=== PATIENT | male | born 1950 | race African-American/Black ===

== ENCOUNTER 2017-03-29 14:32 | Emergency (ER) | payer MEDICARE ==
[~2017-03-29] VITALS: Ht 188 cm; Wt 91.0 kg
[2017-03-29 14:47] VITALS: BP 89/53; PULSE 75; RESP 25; TEMP 97.9; O2SAT 99
[2017-03-29 15:06] VITALS: BP 141/75; PULSE 77; RESP 25; O2SAT 99
--- NOTE | 2017-03-29 15:12 | PD ---
HPI Chief Complaint: Syncope/Near-Syncope Time Seen by Provider: 14:38 Travel History International Travel<30 days: No Contact w/Intl Traveler<30days: No Traveled to known affect area: No History of Present Illness HPI 66-year-old male came to the emergency room brought by EMS after he had a syncopal episode in a store. His son was there with him. Patient has history of diabetes and the bystanders brought some juice for him. EMS noticed his blood glucose to be 101 upon arrival. His blood glucose was 75 after arrival in the ER. I went to speak with him patient said that he wants to go home and does not want anything else to be done. It was difficult to get any further history from the patient. His blood pressure upon arrival was 82 systolic PFSH Past Medical History Narrative Medical List of his past medical, surgical, social and family history was reviewed from the nursing note. Arthritis: Yes High Cholesterol: Yes Diabetes: Yes Patient Takes Glucophage: No Hypertension: Yes Musculoskeletal: Yes Past Surgical History Surgical History: No Previous Surgery Social History Alcohol Use: Yes (2-3 beer/liquor drinks 2-3 times per week. ) Tobacco Use: No Substance Use: No Allergies-Medications (Allergen,Severity, Reaction): Coded Allergies: No Known Allergies (Unverified , 03/29/17) Comments No known drug allergies. Reported Meds & Prescriptions Reported Meds & Active Scripts Active Active Prescriptions or Reported Medications Unobtainable Narrative Medication List of his home medications reviewed from the nursing note. Review of Systems Except as stated in HPI: all other systems reviewed are Neg Neurologic: Positive: Syncope Physical Exam Narrative GENERAL: Awake, alert, mild distress SKIN: Focused skin assessment warm/dry. HEAD: Atraumatic. Normocephalic. EYES: Pupils equal and round. No scleral icterus. No injection or drainage. ENT: No nasal bleeding or discharge. Mucous membranes pink and moist. NECK: Trachea midline. No JVD. CARDIOVASCULAR: Regular rate and rhythm. No murmur appreciated. RESPIRATORY: No accessory muscle use. Clear to auscultation. Breath sounds equal bilaterally. GASTROINTESTINAL: Abdomen soft, non-tender, nondistended. Hepatic and splenic margins not palpable. MUSCULOSKELETAL: No obvious deformities. No clubbing. No cyanosis. No edema. NEUROLOGICAL: Awake and alert. No obvious cranial nerve deficits. Motor grossly within normal limits. Normal speech. PSYCHIATRIC: Appropriate mood and affect; insight and judgment normal. Data Data Last Documented VS Orders Orders Electrocardiogram (03/29/17 14:46) MDM Medical Decision Making Medical Screen Exam Complete: Yes Emergency Medical Condition: Yes Medical Record Reviewed: Yes Interpretation(s) Twelve-lead EKG was reviewed by me. Normal sinus rhythm, normal axis, nonspecific ST-T wave changes. Heart rate of 70 bpm Differential Diagnosis Cardiac arrhythmia, hypoglycemia Narrative Course 4 PM patient wanted to go home. He understood the risks of leaving without telling any of the tests and not being able to determine the underlying cause of his syncope. I explained to him that the risk in worse case scenario could be . Patient understood but still wanted to go. He was in full capacity to make the decision. He signed AMA. Procedures EKG Prior to Arrival: No Diagnosis Primary Impression: Syncope Qualified Codes: R55 - Syncope and collapse Scripts Unable to Obtain Active Prescriptions or Reported Meds Disposition: 07 AGAINST MEDICAL ADVICE Condition: Serious Janelle Hobbs MD Mar 29, 2017 15:12
--- NOTE | 2017-03-30 15:43 | EKG ---
Date Performed: 03/29/2017 Time Performed: 14:46:55 PTAGE: 66 years EKG: Sinus rhythm NORMAL ECG NO PREVIOUS TRACING DOCTOR: Meek Garner Interpretating Date/Time 03/30/2017 15:42:12
== END 2017-03-29 18:50 | disposition left against medical advice (07) ==
LOC: NEPE 14:32
DX: R55 Syncope and collapse (principal); M19.90 Unspecified osteoarthritis, unspecified site; E78.00 Pure hypercholesterolemia, unspecified; E11.9 Type 2 diabetes mellitus without complications; I10 Essential (primary) hypertension
CPT/HCPCS: 93005; 99283

== ENCOUNTER 2017-09-02 22:14 | Inpatient (IN) | payer OTHER, MEDICARE ==
[~2017-09-02] VITALS: Ht 190.5 cm; Wt 84.5 kg
[2017-09-02 22:30] VITALS: BP 139/92; PULSE 124; RESP 16; TEMP 99; O2SAT 97
[2017-09-02] MEDS ORDERED: SODIUM CHLOR 0.9% 1000 ML INJ 1,000 ML IV ONE (22:33)
[2017-09-02 22:39] VITALS: PULSE 127; RESP 20; TEMP 99; O2SAT 97
[2017-09-02] MEDS ORDERED: SODIUM CHLORIDE 0.9% FLUSH 10 ML FLUSH IVF PRN (22:45)
--- NOTE | 2017-09-02 22:50 | PD ---
HPI Chief Complaint: Cardiac Complaint Time Seen by Provider: 22:48 Travel History International Travel<30 days: No Contact w/Intl Traveler<30days: No Traveled to known affect area: No History of Present Illness HPI 67-year-old male presents to the emergency department by EMS transport for evaluation of generalized weakness and palpitations. Patient states he has not felt well for several months with poor oral intake and significant weight loss. Today was experiencing generalized weakness and palpitations. According to paramedics upon their arrival patient's heart rate was 140, blood sugar was mildly elevated patient was given liter of normal saline complaint of palpitations decreased patient did not complain of any chest pain or shortness of breath. Patient recently moved to the area and has not established with a primary care provider. Patient admits to being noncompliant with his medications. Admits to drinking alcohol. PFSH Past Medical History Narrative Medical Arthritis dyslipidemia diabetes CAD [place] hypertension; alcohol use; nursing notes reviewed Arthritis: Yes Cardiovascular Problems: Yes High Cholesterol: Yes Diabetes: Yes Patient Takes Glucophage: No Hypertension: Yes Musculoskeletal: Yes Myocardial Infarction: Yes Social History Alcohol Use: Yes Tobacco Use: No Substance Use: Yes (ETOH ABUSE 1 GALLON VODKA EVERY FEW DAYS) Allergies-Medications (Allergen,Severity, Reaction): Coded Allergies: No Known Allergies (Unverified , 09/02/17) Reported Meds & Prescriptions Reported Meds & Active Scripts Active Reported Digox (Digoxin) 0.25 Mg Tab 0.25 Mg PO DAILY Zolpidem (Zolpidem Tartrate) 10 Mg Tab 10 Mg PO HS PRN Levitra (Vardenafil) 20 Mg Tab 20 Mg PO DAILY PRN Viagra (Sildenafil Citrate) 100 Mg Tab 100 Mg PO DAILY PRN Potassium Chloride ER (Potassium Chloride) 20 Meq Tab 20 Meq PO DAILY Polymyxin B-Trimethoprim Opth Drops 10,000-0.1 Unit/Ml-% Soln 1 Drop LEFT EYE Q6HR Pred Forte Opth 1% (Prednisolone Acetate Opth 1%) 1% Susp 1 Drop LEFT EYE QID Multi-Vitamin Daily (Multiple Vitamin) 1 Tab Tab 1 Tab PO DAILY Methimazole 10 Mg Tab 10 Mg PO DAILY Metformin ER (Metformin HCl) 1,000 Mg [place] 1,000 Mg PO BID With evening meal Meloxicam 15 Mg Tab 15 Mg PO DAILY Magnesium Oxide 400 Mg Tab 800 Mg PO DAILY Lisinopril 40 Mg Tab 40 Mg PO DAILY Ketorolac Opth Drops 0.5% Drops 1 Drop LEFT EYE TID Furosemide 40 Mg Tab 40 Mg PO DAILY Escitalopram (Escitalopram Oxalate) 10 Mg Tab 10 Mg PO DAILY B-12 (Cyanocobalamin) 1,000 Mcg Subl 1,000 Mcg PO DAILY Carvedilol 25 Mg Tab 25 Mg BID Atorvastatin (Atorvastatin Calcium) 40 Mg Tab 40 Mg PO HS Ascorbic Acid 500 Mg Tab 1,000 Mg PO Amlodipine (Amlodipine Besylate) 5 Mg Tab 5 Mg PO DAILY Tylenol (Acetaminophen) 325 Mg Tab 325 Mg PO ONCE Review of Systems Except as stated in HPI: all other systems reviewed are Neg General / Constitutional: Positive: Fever, Chills HENT: No: Congestion Cardiovascular: Positive: Chest Pain or Discomfort, Palpitations, Tachycardia, No: Edema Respiratory: Positive: Cough, No: Shortness of Breath Gastrointestinal: Positive: Nausea, Vomiting, Abdominal Pain Genitourinary: No: Dysuria Musculoskeletal: No: Myalgias, Arthralgias Neurologic: Positive: Weakness Psychiatric: No: Anxiety Hematologic/Lymphatic: No: Lymph Node Enlargement Physical Exam Narrative GENERAL: Well-developed well-nourished male no acute distress no respiratory distress GCS 15 SKIN: Warm and dry. HEAD: Normocephalic. EYES: No scleral icterus. No injection or drainage. NECK: Supple, trachea midline. No JVD or lymphadenopathy. CARDIOVASCULAR: Increased regular rate and rhythm without murmurs, gallops, or rubs. RESPIRATORY: Breath sounds equal bilaterally. No accessory muscle use. GASTROINTESTINAL: Abdomen soft, diffusely tender without guarding or rebound, nondistended. MUSCULOSKELETAL: No cyanosis, or edema. BACK: Nontender without obvious deformity. No CVA tenderness. Data Data Last Documented VS Vital Signs Date Time Temp Pulse Resp B/P (MAP) Pulse Ox O2 Delivery O2 Flow Rate FiO2 09/02/17 22:39 119 98 Room Air 09/02/17 22:39 99.0 20 09/02/17 22:30 139/92 (108) Orders Orders Electrocardiogram (09/02/17 22:33) Complete Blood Count With Diff (09/02/17 22:33) Comprehensive Metabolic Panel (09/02/17 22:33) Magnesium (Mg) (09/02/17 22:33) Ckmb (Isoenzyme) Profile (09/02/17 22:33) Troponin I (09/02/17 22:33) Act Partial Throm Time (Ptt) (09/02/17 22:33) Prothrombin Time / Inr (Pt) (09/02/17 22:33) Urinalysis - C+S If Indicated (09/02/17 22:33) Chest, Single Ap (09/02/17 22:33) Ct Brain W/O Iv Contrast(Rout) (09/02/17 22:33) Blood Glucose (09/02/17 22:33) Ecg Monitoring (09/02/17 22:33) Iv Access Insert/Monitor (09/02/17 22:33) Oximetry (09/02/17 22:33) Sodium Chloride 0.9% Flush (Ns Flush) (09/02/17 22:45) Sodium Chlor 0.9% 1000 Ml Inj (Ns 1000 M (09/02/17 22:33) Ct Abd/Pel W Iv Contrast(Rout) (09/02/17 ) Lipase (09/02/17 22:33) Blood Culture (09/02/17 22:33) Lactic Acid (09/02/17 22:33) Iohexol 350 Inj (Omnipaque 350 Inj) (09/03/17 00:12) Thiamine Inj (Thiamine Inj) (09/03/17 01:00) Magnesium Sulfate 1 Gm Premix (Magnesium (09/03/17 01:00) Alcohol (Ethanol) (09/03/17 00:49) Drug Screen, Random Urine (09/03/17 00:49) Sodium Chlor 0.9% 1000 Ml Inj (Ns 1000 M (09/03/17 01:00) Alcohol Withdrawal Asmt-Ciwa ONCE (09/03/17 00:55) Flumazenil Inj (Romazicon Inj) (09/03/17 01:00) Lorazepam (Ativan) (09/03/17 01:00) Lorazepam Inj (Ativan Inj) (09/03/17 01:00) Lorazepam (Ativan) (09/03/17 01:00) Lorazepam Inj (Ativan Inj) (09/03/17 01:00) Lorazepam Inj (Ativan Inj) (09/03/17 01:00) Lorazepam Inj (Ativan Inj) (09/03/17 01:00) Lactic Acid (09/03/17 00:59) Admit Order (Ed Use Only) (09/03/17 ) Flight Operations Inspector / Telemetry [id number] (09/03/17 01:00) Activity Bed Rest (09/03/17 01:00) Notify Dr: Other (09/03/17 01:00) Labs Laboratory Tests Test 09/02/17 22:45 09/02/17 23:15 White Blood Count 5.8 TH/MM3 Red Blood Count 3.30 MIL/MM3 Hemoglobin 11.7 GM/DL Hematocrit 34.4 % Mean Corpuscular Volume 104.1 FL Mean Corpuscular Hemoglobin 35.6 PG Mean Corpuscular Hemoglobin Concent 34.2 % Red Cell Distribution Width 16.0 % Platelet Count 152 TH/MM3 Mean Platelet Volume 9.5 FL Neutrophils (%) (Auto) 66.3 % Lymphocytes (%) (Auto) 18.0 % Monocytes (%) (Auto) 15.1 % Eosinophils (%) (Auto) 0.1 % Basophils (%) (Auto) 0.5 % Neutrophils # (Auto) 3.8 TH/MM3 Lymphocytes # (Auto) 1.0 TH/MM3 Monocytes # (Auto) 0.9 TH/MM3 Eosinophils # (Auto) 0.0 TH/MM3 Basophils # (Auto) 0.0 TH/MM3 CBC Comment DIFF FINAL Differential Comment Prothrombin Time 12.0 SEC Prothromb Time International Ratio 1.2 RATIO Activated Partial Thromboplast Time 24.4 SEC Blood Urea Nitrogen 13 MG/DL Creatinine 1.18 MG/DL Random Glucose 283 MG/DL Total Protein 8.0 GM/DL Albumin 3.2 GM/DL Calcium Level 8.3 MG/DL Magnesium Level 1.3 MG/DL Alkaline Phosphatase 285 U/L Aspartate Amino Transf (AST/SGOT) 307 U/L Alanine Aminotransferase (ALT/SGPT) 112 U/L Total Bilirubin 3.9 MG/DL Sodium Level 137 MEQ/L Potassium Level 3.7 MEQ/L Chloride Level 96 MEQ/L Carbon Dioxide Level 27.3 MEQ/L Anion Gap 14 MEQ/L Estimat Glomerular Filtration Rate 75 ML/MIN Lactic Acid Level 3.8 mmol/L Total Creatine Kinase 49 U/L Troponin I LESS THAN 0.02 NG/ML Lipase 39 U/L Ethyl Alcohol Level LESS THAN 3 MG/DL Urine Color YELLOW Urine Turbidity HAZY Urine pH 6.0 Urine Specific [place] 1.024 Urine Protein 30 mg/dL Urine Glucose (UA) 150 mg/dL Urine Ketones 10 mg/dL Urine Occult Blood NEG Urine Nitrite NEG Urine Bilirubin MOD Urine Urobilinogen GREATER THAN 12.0 MG/DL Urine Leukocyte Esterase TRACE Urine RBC 7 /hpf Urine WBC 8 /hpf Urine Squamous Epithelial Cells 1 /hpf Urine Uric Acid Crystals OCC /hpf Urine Bacteria RARE /hpf Urine Hyaline Casts 81 /lpf Urine Granular Casts 5 /lpf Urine Mucus MANY /lpf Microscopic Urinalysis Comment CULT NOT INDICATED Urine Opiates Screen NEG Urine Barbiturates Screen NEG Urine Amphetamines Screen NEG Urine Benzodiazepines Screen NEG Urine Cocaine Screen NEG Urine Cannabinoids Screen NEG MDM Medical Decision Making Medical Screen Exam Complete: Yes Emergency Medical Condition: Yes Medical Record Reviewed: Yes Interpretation(s) CBC & BMP Diagram 09/02/17 22:45 Total Protein 8.0, Albumin 3.2 L, Calcium Level 8.3 L, Magnesium Level 1.3 L, Alkaline Phosphatase 285 H, Aspartate Amino Transf (AST/SGOT) 307 H, Alanine Aminotransferase (ALT/SGPT) 112 H, Total Bilirubin 3.9 H Vital Signs Date Time Temp Pulse Resp B/P (MAP) Pulse Ox O2 Delivery O2 Flow Rate FiO2 09/02/17 22:39 119 98 Room Air 09/02/17 22:39 99.0 127 20 97 Room Air 09/02/17 22:30 99.0 124 16 139/92 (108) 97 Differential Diagnosis Arrhythmia, electrolyte disturbance, dehydration, renal failure, [place], colitis, biliary colic, pancreatitis, peptic ulcer disease alcohol abuse, electrolyte disturbance, sepsis Narrative Course Patient placed on rod placer with continuous pulse oximetry IV access obtained specimens collected and sent for resulting Patient resting comfortably responding well to IV fluid hydration Patient voicing any concerns or complaints Patient noted to be mildly tremulous concern for possible alcohol withdrawal as he does drink alcohol daily and has not had any alcohol since yesterday; when queried about this he states that he needs to go through detox program and he needs help with his alcoholism Patient's case discussed with with on-call hospitalist service for admission for alcohol withdrawal Physician Communication Physician Communication discussed with DR Newberry Diagnosis Primary Impression: Alcohol withdrawal Admitting Information Admitting Physician Requests: Admit Zandra Bass MD September 02, 2017 22:50
[2017-09-02 23:38] LABS: AUTOMATED NEUTROPHIL # 3.8 TH/MM3 (1.8-7.7); BASOPHIL % 0.5 % (0.0-2.0); EOSINOPHIL % 0.1 % (0.0-4.0); HEMATOCRIT 34.4 % (39.0-51.0); HEMOGLOBIN 11.7 GM/DL (13.0-17.0); MEAN CELL VOLUME 104.1 FL (80.0-100.0); MEAN CORPUSCULAR HEMOGLOBIN 35.6 PG (27.0-34.0); MEAN CORPUSCULAR HGB CONC 34.2 % (32.0-36.0); MEAN PLATELET VOLUME 9.5 FL (7.0-11.0); MONO % 15.1 % (0.0-8.0); MONOCYTE # 0.9 TH/MM3 (0-0.9); NEUT % 66.3 % (16.0-70.0); PLATELET COUNT 152 TH/MM3 (150-450); WHITE BLOOD COUNT 5.8 TH/MM3 (4.0-11.0)
[2017-09-02 23:39] LABS: ALBUMIN 3.2 GM/DL (3.4-5.0); ALT (GPT) 112 U/L (12-78); AST (GOT) 307 U/L (15-37); BICARBONATE 27.3 MEQ/L (21.0-32.0); BLOOD UREA NITROGEN 13 MG/DL (7-18); CALCIUM 8.3 MG/DL (8.5-10.1); CHLORIDE 96 MEQ/L (98-107); CREATININE 1.18 MG/DL (0.60-1.30); GLOMERULAR FILTRATION RATE 75 ML/MIN (>89); GLUCOSE,RANDOM 283 MG/DL (74-106); MAGNESIUM 1.3 MG/DL (1.5-2.5); SODIUM (NA) 137 MEQ/L (136-145)
[2017-09-02 23:41] LABS: INTERNATIONAL NORMALIZED RATIO 1.2 RATIO
--- NOTE | 2017-09-02 23:42 | RADRPT ---
EXAM DATE/TIME: 09/02/2017 22:46 [facility] COMPARISON: No previous studies available for comparison. INDICATIONS : Chest pain and shortness of breath. MEDICAL HISTORY : Myocardial infarction. Hypercholesterolemia. Hypertension. Diabetes. Athritis. SURGICAL HISTORY : None. ENCOUNTER: Initial ACUITY: 1 day PAIN SCORE: 6/10 LOCATION: Bilateral chest FINDINGS: A single view of the chest demonstrates the lungs to be symmetrically aerated without evidence of mas s, infiltrate or effusion. The cardiomediastinal contours are unremarkable. Osseous structures are intact. CONCLUSION: No acute disease. Sathya Rachel MD on September 02, 2017 at 23:40 Board Certified Radiologist. This report was verified electronically.
[2017-09-02 23:44] LABS: ALKALINE PHOSPHATASE 285 U/L (45-117); TOTAL BILIRUBIN ADULT 3.9 MG/DL (0.2-1.0); TROPONIN I LESS THAN 0.02 NG/ML (0.02-0.05)
[2017-09-03] VITALS (8 sets, daily range): BP systolic 112–151; BP diastolic 71–89; PULSE 81–110; RESP 16–22; TEMP 97.5–97.8; O2SAT 95–100
[2017-09-03] MEDS ORDERED: CYAN100025 PO (00:02)
[2017-09-03] MEDS ORDERED: METHI10 PO (00:02)
[2017-09-03] MEDS ORDERED: KETO0.5S2 LEFT EYE (00:02)
[2017-09-03] MEDS ORDERED: LEVI20TA PO (00:02)
[2017-09-03] MEDS ORDERED: AMLO5TAB2 PO (00:02)
[2017-09-03] MEDS ORDERED: MAGN400T2 PO (00:02)
[2017-09-03] MEDS ORDERED: DIGO0.259 PO (00:02)
[2017-09-03] MEDS ORDERED: ESCI10TA PO (00:02)
[2017-09-03] MEDS ORDERED: CARV25TA (00:02)
[2017-09-03] MEDS ORDERED: TRIMSOL LEFT EYE (00:02)
[2017-09-03] MEDS ORDERED: METF-382 PO (00:02)
[2017-09-03] MEDS ORDERED: ASCO500T PO (00:02)
[2017-09-03] MEDS ORDERED: FURO40TA PO (00:02)
[2017-09-03] MEDS ORDERED: MELO15TA20 PO (00:02)
[2017-09-03] MEDS ORDERED: PRED1SUS LEFT EYE (00:02)
[2017-09-03] MEDS ORDERED: VIAG100T PO (00:02)
[2017-09-03] MEDS ORDERED: MULT-65 PO (00:02)
[2017-09-03] MEDS ORDERED: POTA-163 PO (00:02)
[2017-09-03] MEDS ORDERED: LISI40TA PO (00:02)
[2017-09-03] MEDS ORDERED: TYLE325T PO (00:02)
[2017-09-03] MEDS ORDERED: ZOLP10TA3 PO (00:02)
[2017-09-03] MEDS ORDERED: ATOR40TA16 PO (00:02)
[2017-09-03] MEDS ORDERED: IOHEXOL 350 MG/ML 10 ML VIAL (for RAD DIAG) IVCONTRAST ONE (00:12)
--- NOTE | 2017-09-03 00:23 | RADRPT ---
EXAM DATE/TIME: 09/03/2017 00:11 [facility] COMPARISON: No previous studies available for comparison. INDICATIONS : Dizziness. General weakness. RADIATION DOSE: 36.93 CTDIvol (mGy) MEDICAL HISTORY : Myocardial infarction. Diabetes mellitus type 2. Hypercholesterolemia.Hypertension. SURGICAL HISTORY : None. ENCOUNTER: Initial ACUITY: 1 day PAIN SCALE: 0/10 LOCATION: cranial TECHNIQUE: Multiple contiguous axial images were obtained of the head. Using automated exposure control and adj ustment of the mA and/or kV according to patient size, radiation dose was kept as low as reasonably a chievable to obtain optimal diagnostic quality images. DICOM format image data is available electro nically for review and comparison. FINDINGS: There is patchy mild diminished attenuation in periventricular white matter which appears benign. The re are small bilateral basal ganglia lacunar infarcts which appear old. There is no evidence of intra cranial hemorrhage or mass. There is nothing to suggest acute infarction. Extracranial structures farzaneh ear benign CONCLUSION: No acute intracranial findings Sathya Rachel MD on September 03, 2017 at 0:19 Board Certified Radiologist. This report was verified electronically.
[2017-09-03 00:28] LABS: BACTERIA, URINE RARE /hpf; BILIRUBIN, URINE MOD (NEG); BLOOD, URINE NEG (NEG); GLUCOSE,URINE 150 mg/dL (NEG); HYALINE CAST, URINE 81 /lpf (RARE); KETONE, URINE 10 mg/dL (NEG); MUCUS URINE MANY /lpf (OCC); NITRITE,URINE NEG (NEG); SQUAMOUS EPITHELIAL CELL URINE 1 /hpf (0-5); URIC ACID CRYSTALS, URINE OCC /hpf; URINE COLOR YELLOW (YELLW/STRAW); URINE LEUKOCYTE ESTERASE TRACE (NEG)
--- NOTE | 2017-09-03 00:38 | RADRPT ---
EXAM DATE/TIME: 09/03/2017 00:14 [facility] COMPARISON: No previous studies available for comparison. INDICATIONS : Abdominal pain. General weakness. IV CONTRAST: 95 cc Omnipaque 350 (iohexol) IV ORAL CONTRAST: No oral contrast ingested. RADIATION DOSE: 11.84 CTDIvol (mGy) MEDICAL HISTORY : Myocardial infarction. Diabetes mellitus type 2. Hypercholesterolemia.Hypertension. SURGICAL HISTORY : None. ENCOUNTER: Initial ACUITY: 1 day PAIN SCALE: 8/10 LOCATION: Abdomen. TECHNIQUE: Volumetric scanning of the abdomen and pelvis was performed. Using automated exposure control and ad justment of the mA and/or kV according to patient size, radiation dose was kept as low as reasonably achievable to obtain optimal diagnostic quality images. DICOM format image data is available electro nically for review and comparison. FINDINGS: LOWER LUNGS: The visualized lower lungs are clear. LIVER: Severely diminished hepatic attenuation likely reflecting steatosis. No focal mass. No biliary ductal dilatation. SPLEEN: Normal size without lesion. PANCREAS: Within normal limits. KIDNEYS: Normal in size and shape. There is no mass, stone or hydronephrosis. ADRENAL GLANDS: Within normal limits. VASCULAR: There is no aortic aneurysm. BOWEL/MESENTERY: Distal colonic diverticula. No abnormal dilatation of bowel. No focal wall thickening or inflammatory changes. ABDOMINAL WALL: Within normal limits. RETROPERITONEUM: There is no lymphadenopathy. BLADDER: No wall thickening or mass. REPRODUCTIVE: Within normal limits. INGUINAL: There is no lymphadenopathy or hernia. MUSCULOSKELETAL: Within normal limits for patient age. CONCLUSION: No acute CT findings in the abdomen or pelvis. Sathya Rachel MD on September 03, 2017 at 0:31 Board Certified Radiologist. This report was verified electronically.
[2017-09-03] MEDS ORDERED: FLUMAZENIL 0.5 MG/5 ML VIAL IV PUSH PRN (01:00)
[2017-09-03] MEDS ORDERED: SODIUM CHLOR 0.9% 1000 ML INJ 1,000 ML IV ONE ×2 (01:00→10:45)
[2017-09-03] MEDS ORDERED: LORazepam 2 MG/ML VIAL IV PUSH PRN ×4 (01:00)
[2017-09-03] MEDS ORDERED: LORazepam 1 MG TAB PO PRN (01:00)
[2017-09-03] MEDS ORDERED: LORazepam 2 MG TAB PO PRN (01:00)
[2017-09-03] MEDS ORDERED: THIAMINE INJ 100 MG in SODIUM CHLORIDE 0.9% INJ 100 ML IV ONE (01:00)
[2017-09-03] MEDS ORDERED: DEXTROSE 50% IN WATER 50 ML VIAL(D50) IV PUSH PRN (01:15)
[2017-09-03] MEDS ORDERED: SENNOSIDES 8.6 MG TAB PO PRN (01:15)
[2017-09-03] MEDS ORDERED: BISACODYL 10 MG SUPP RECTAL PRN (01:15)
[2017-09-03] MEDS ORDERED: LACTULOSE SYRUP 20 GM/30 ML CUP PO PRN (01:15)
[2017-09-03] MEDS ORDERED: ACETAMINOPHEN 325 MG TAB PO PRN (01:15)
[2017-09-03] MEDS ORDERED: GLUCAGON 1 MG/ML VIAL OTHER PRN (01:15)
[2017-09-03] MEDS ORDERED: MAGNESIUM HYDROXIDE SUSP 30 ML CUP PO PRN (01:15)
[2017-09-03] MEDS ORDERED: SODIUM CHLORIDE 0.9% FLUSH 10 ML FLUSH IV FLUSH PRN (01:15)
[2017-09-03] MEDS: MAGNESIUM SULFATE 1 GM PREMIX 100 ML IV SCH ×2 (01:45→02:52)
[2017-09-03] MEDS: SODIUM CHLOR 0.9% 1000 ML INJ 1,000 ML IV SCH ×3 (02:53→19:37)
--- NOTE | 2017-09-03 03:12 | HHI.HP ---
HPI Service [facility] Primary Care Physician No Primary Care Physician Admission Diagnosis generalized weakness; alcohol withdrawal; DM Diagnoses: (1) Alcohol withdrawal Diagnosis: Principal (2) Elevated LFTs Diagnosis: Principal (3) DM (diabetes mellitus) Diagnosis: Principal Travel History International Travel<30 Days: No Contact w/Intl Traveler <30 Da: No Traveled to Known Affected Are: No History of Present Illness This is a 67-year-old male with a PMH of HTN, CAD, DM and Alcohol Abuse who was brought to the ER by EMS secondary to complaints of generalized weakness and palpitations. Patient reports he's had weakness and decreased PO intake for several months, however now worse over the last 1-2 days. +alcohol, drinks approx 1gallon of Vodka every few days, last drink yesterday. Denies chest pain , SOB, fever or chills. While in ER, pt noted to have significant tremor, + alcohol withdrawal. BP 139/92, HR 124, O2 sat 97% on RA, Temp 99.0. CBC unremarkable except for hemoglobin 11.7, MCV 104.1. GFR 75, BS 283. Lactic Acid 3.8. LFTs elevated, no previous labs for comparison. Troponin negative. INR 1.2. UA negative for UTI. Urine Drug Screen negative. Alcohol negative. CT Abdomen/Pelvis with no acute findings. CT Head negative. CXR with no acute findings. Review of Systems Except as stated in HPI: all other systems reviewed are Neg ROS: 14 point review of systems otherwise negative. Past Family Social History Past Medical History PMH: HTN, CAD, DM and Alcohol Abuse Past Surgical History PAST SURGICAL HISTORY: None Allergies: Coded Allergies: No Known Allergies (Unverified , 09/02/17) Family History PAST FAMILY HISTORY: Reviewed. No h/o DM or CAD Social History PAST SOCIAL HISTORY: Drinks 1 gallon of vodka every few days. Negative for tobacco or drugs. Physical Exam Vital Signs Vital Signs Date Time Temp Pulse Resp B/P (MAP) Pulse Ox O2 Delivery O2 Flow Rate FiO2 09/03/17 02:18 09/03/17 01:38 105 16 148/86 (106) 98 Room Air 09/02/17 22:39 119 98 Room Air 09/02/17 22:39 99.0 127 20 97 Room Air 09/02/17 22:30 99.0 124 16 139/92 (108) 97 Physical Exam PE: GENERAL: Pleasant middle-age male in no acute distress. +tremor HEENT: PERRLA, EOMI. No scleral icterus or conjunctival pallor. No lid lag or facial droop. CARDIOVASCULAR: Regular rate and rhythm. No obvious murmurs to auscultation. No chest tenderness to palpation. RESPIRATORY: No obvious rhonchi or wheezing. Clear to auscultation. Breath sounds equal bilaterally. GASTROINTESTINAL: Abdomen soft, non-tender, nondistended. BS normal. MUSCULOSKELETAL: Extremities without clubbing, cyanosis, or edema. No obvious deformities. NEUROLOGICAL: Awake, alert and oriented x4. No focal neurologic deficits. Moving both upper and lower extremities spontaneously. Laboratory Laboratory Tests Test 09/02/17 22:45 09/02/17 23:15 09/03/17 01:20 White Blood Count 5.8 Red Blood Count 3.30 Hemoglobin 11.7 Hematocrit 34.4 Mean Corpuscular Volume 104.1 Mean Corpuscular Hemoglobin 35.6 Mean Corpuscular Hemoglobin Concent 34.2 Red Cell Distribution Width 16.0 Platelet Count 152 Mean Platelet Volume 9.5 Neutrophils (%) (Auto) 66.3 Lymphocytes (%) (Auto) 18.0 Monocytes (%) (Auto) 15.1 Eosinophils (%) (Auto) 0.1 Basophils (%) (Auto) 0.5 Neutrophils # (Auto) 3.8 Lymphocytes # (Auto) 1.0 Monocytes # (Auto) 0.9 Eosinophils # (Auto) 0.0 Basophils # (Auto) 0.0 CBC Comment DIFF FINAL Differential Comment Prothrombin Time 12.0 Prothromb Time International Ratio 1.2 Activated Partial Thromboplast Time 24.4 Blood Urea Nitrogen 13 Creatinine 1.18 Random Glucose 283 Total Protein 8.0 Albumin 3.2 Calcium Level 8.3 Magnesium Level 1.3 Alkaline Phosphatase 285 Aspartate Amino Transf (AST/SGOT) 307 Alanine Aminotransferase (ALT/SGPT) 112 Total Bilirubin 3.9 Sodium Level 137 Potassium Level 3.7 Chloride Level 96 Carbon Dioxide Level 27.3 Anion Gap 14 Estimat Glomerular Filtration Rate 75 Lactic Acid Level 3.8 3.2 Total Creatine Kinase 49 Troponin I LESS THAN 0.02 Lipase 39 Ethyl Alcohol Level LESS THAN 3 Urine Color YELLOW Urine Turbidity HAZY Urine pH 6.0 Urine Specific [place] 1.024 Urine Protein 30 Urine Glucose (UA) 150 Urine Ketones 10 Urine Occult Blood NEG Urine Nitrite NEG Urine Bilirubin MOD Urine Urobilinogen GREATER THAN 12.0 Urine Leukocyte Esterase TRACE Urine RBC 7 Urine WBC 8 Urine Squamous Epithelial Cells 1 Urine Uric Acid Crystals OCC Urine Bacteria RARE Urine Hyaline Casts 81 Urine Granular Casts 5 Urine Mucus MANY Microscopic Urinalysis Comment CULT NOT INDICATED Urine Opiates Screen NEG Urine Barbiturates Screen NEG Urine Amphetamines Screen NEG Urine Benzodiazepines Screen NEG Urine Cocaine Screen NEG Urine Cannabinoids Screen NEG Date/Time Source Procedure Growth Status 09/02/17 22:45 Blood Peripheral Aerobic Blood Culture Pending Received 09/02/17 22:45 Blood Peripheral Anaerobic Blood Culture Pending Received Result Diagram: 09/02/175 09/02/172244 Caprini VTE Risk Assessment Caprini VTE Risk Assessment: No/Low Risk (score <= 1) Caprini Risk Assessment Model Point Value = 1 Point Value = 2 Point Value = 3 Point Value = 5 Age 41-60 Minor surgery BMI > 25 kg/m2 Swollen legs Varicose veins or History of unexplained or recurrent spontaneous Oral contraceptives or hormone replacement Sepsis (< 1 month) Serious lung disease, including pneumonia (< 1 month) Abnormal pulmonary function Acute myocardial infarction Congestive heart failure (< 1 month) History of inflammatory bowel disease Medical patient at bed rest Age 61-74 Arthroscopic surgery Major open surgery (> 45 min) Laparoscopic surgery (> 45 min) Malignancy Confined to bed (> 72 hours) Immobilizing plaster cast Central venous access Age >= 75 History of VTE Family history of VTE Factor V Leiden Prothrombin [id number] Lupus anticoagulant Anticardiolipin antibodies Elevated serum homocysteine Heparin-induced thrombocytopenia Other congenital or acquired thrombophilia Stroke (< 1 month) Elective arthroplasty Hip, pelvis, or leg fracture Acute spinal cord injury (< 1 month) Prophylaxis Regimen Total Risk Factor Score Risk Level Prophylaxis Regimen 0-1 Low Early ambulation 2 Moderate Order ONE of the following: *Sequential Compression Device (SCD) *Heparin 5000 units SQ BID 3-4 Higher Order ONE of the following medications: *Heparin 5000 units SQ TID *Enoxaparin/Lovenox 40 mg SQ daily (WT < 150 kg, CrCl > 30 mL/min) *Enoxaparin/Lovenox 30 mg SQ daily (WT < 150 kg, CrCl > 10-29 mL/min) *Enoxaparin/Lovenox 30 mg SQ BID (WT < 150 kg, CrCl > 30 mL/min) AND/OR *Sequential Compression Device (SCD) 5 or more Highest Order ONE of the following medications: *Heparin 5000 units SQ TID (Preferred with Epidurals) *Enoxaparin/Lovenox 40 mg SQ daily (WT < 150 kg, CrCl > 30 mL/min) *Enoxaparin/Lovenox 30 mg SQ daily (WT < 150 kg, CrCl > 10-29 mL/min) *Enoxaparin/Lovenox 30 mg SQ BID (WT < 150 kg, CrCl > 30 mL/min) AND *Sequential Compression Device (SCD) Assessment and Plan Problem List: (1) Alcohol withdrawal ICD Code: F10.239 - Alcohol dependence with withdrawal, unspecified (2) Elevated LFTs ICD Code: R79.89 - Other specified abnormal findings of blood chemistry (3) DM (diabetes mellitus) ICD Code: E11.9 - Type 2 diabetes mellitus without complications Assessment and Plan A/P: 1. Alcohol Abuse: w/ Acute Alcohol Withdrawal, +tremor, +tachycardia/ palpitations, drinks 1gallon Vodka every few days, last drink yesterday, Alcohol negative. CIWA, Seizure Precautions, MVT/Thiamine/Folate replacement. IVF for hydration. Telemetry. 2. 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 Monitor for bleeding w/ elevated INR. 3. DM: Sliding scale w/ Accu-Cheks. 4. DVT Prophylaxis: SCD/Teds 5. Social work for d/c planning as needed. 6. Case discussed w/ ER physician at length, labs/records/imaging reviewed by me. Physician Certification 2 Midnight Certification Type: Admission for Inpatient Services Order for Inpatient Services The services are ordered in accordance with Medicare regulations or non- Medicare payer requirements, as applicable. In the case of services not specified as inpatient-only, they are appropriately provided as inpatient services in accordance with the 2-midnight benchmark. Estimated LOS (days): 2 days is the estimated time the patient will need to remain in the hospital, assuming treatment plan goals are met and no additional complications. Post-Hospital Plan: Not yet determined Katelynn Newberry MD September 03, 2017 03:12
[2017-09-03] MEDS: INSULIN ASPART SUPPLEMENTAL SCALE SQ SCH ×2 (08:00→11:26)
[2017-09-03] MEDS: DIGOXIN 0.25 MG TAB PO SCH (08:30)
[2017-09-03] MEDS: CARVEDILOL 12.5 MG TAB PO SCH (08:30)
[2017-09-03] MEDS: FOLIC ACID 1 MG TAB PO SCH (08:30)
[2017-09-03] MEDS: SULFAMETHOXAZOLE-TRIMETHOPRIM 400-80 MG TAB PO SCH ×2 (08:30→19:37)
[2017-09-03] MEDS: DOCUSATE SODIUM 50 MG/SENNA 8.6 MG TAB PO SCH ×2 (08:30→19:37)
[2017-09-03] MEDS: MULTIVITAMINS/MINERALS THERAPEUTIC TAB PO SCH (08:30)
[2017-09-03] MEDS: amLODIPine BESYLATE 5 MG TAB PO SCH (08:30)
[2017-09-03] MEDS: THIAMINE HCL 100 MG TAB PO SCH (08:31)
[2017-09-03] MEDS: ESCITALOPRAM OXALATE 10 MG TAB PO SCH (08:31)
[2017-09-03] MEDS: SODIUM CHLORIDE 0.9% FLUSH 10 ML FLUSH IV FLUSH SCH ×2 (08:31→19:37)
[2017-09-03] MEDS ORDERED: LISINOPRIL 20 MG TAB PO SCH (09:00)
--- NOTE | 2017-09-03 10:48 | HHI.FPPN ---
Addendum to progress note ADDENDUM Reason for addendum: Additonal documentation Additional information Patient at a full breakfast. Following breakfast he had projectile vommiting and diarrhea. Passed out while sitting on the toilet. Blood sugar 250s. BP 80 /50. Bolus of NS x1 ordered. Physician present during this time. Patient stated he felt fine and wanted to go in the bed. Would intermittently pass out , but was easily arousable. Patient responded well to IVF. Carrying on a conversation, sitting comfortably in chair. Will make patient NPO until evaluated by GI. Hold insulin. Hold all antihypertensives. Kristi Wu MD September 03, 2017 10:48
[2017-09-03] MEDS: ONDANSETRON HCL 4 MG/2 ML VIAL IVP PRN (11:10)
--- NOTE | 2017-09-03 12:31 | PD.CONS ---
HPI History of Present Illness This is a 67 year old M with PMH significant for HTN, CAD, DM and ETOH abuse. Pt was brought to the ER yesterday with complaints of generalized weakness. Pt reports he has been nauseous and vomiting for the past 3-4 weeks, with some episodes of hematemesis following heavy retching. He is also having epigastric pain, described as burning, intermittent, worse if he does not eat. Also been having a lot of watery diarrhea, multiple BMs a day, associated with fecal urgency and has also had some episodes of incontinence. States has noticed some BRB in his stool, unsure when he last noticed it. Reports a significant weight loss but unsure of how much weight or over what period of time. Of note, earlier today pt had an episode of projectile vomiting and diarrhea in the bathroom followed by a syncopal episode and was found to be hypotensive. S/P 1 L bolus of saline pt now appears to be stable resting in bedside chair. Has never had EGD or colonoscopy. Family history significant for colon cancer, father. Admits to drinking 1 gallon of vodka a week. Denies smoking, illicit drugs, frequent NSAIDs. Denies previous diagnosis of liver issues. (Juanita Tucker) PFSH Past Medical History PMH: HTN, CAD, DM and Alcohol Abuse Past Surgical History PAST SURGICAL HISTORY: None (Juanita Tucker) Coded Allergies: No Known Allergies (Unverified , 09/02/17) Family History PAST FAMILY HISTORY: Reviewed. No h/o DM or CAD Social History PAST SOCIAL HISTORY: Drinks 1 gallon of vodka every few days. Negative for tobacco or drugs. (Juanita Tucker) Review of Systems Gastrointestinal: COMPLAINS OF: Abdominal pain, Bloody stools, Diarrhea, Nausea , Vomiting, Heartburn, Hematemesis, DENIES: Black stools, Constipation, Difficulty Swallowing, Odynophagia, Swelling of Abdomen (Juanita Tucker) GI Exam Vitals I&O Vital Signs Date Time Temp Pulse Resp B/P (MAP) Pulse Ox O2 Delivery O2 Flow Rate FiO2 09/03/17 08:00 97.8 97 20 144/84 (104) 99 09/03/17 05:50 21 09/03/17 04:00 104 09/03/17 04:00 97.8 98 17 126/79 (95) 97 09/03/17 03:00 97.8 110 19 151/89 (109) 100 09/03/17 02:18 09/03/17 01:38 105 16 148/86 (106) 98 Room Air 09/02/17 22:39 119 98 Room Air 09/02/17 22:39 99.0 127 20 97 Room Air 09/02/17 22:30 99.0 124 16 139/92 (108) 97 I/O 09/02/17 09/02/17 09/02/17 09/03/17 09/03/17 09/03/17 07:00 15:00 23:00 07:00 15:00 23:00 Intake Total 1541 ml Output Total 200 ml Balance 1341 ml Intake Oral 240 ml IV Total 1301 ml Output Urine Total 200 ml # Voids 1 Imaging Last Impressions Head CT 09/02/172232 Signed Impressions: Service Date/Time: Sunday, September 03, 2017 00:11 - CONCLUSION: No acute intracranial findings Sathya Rachel MD Chest X-Ray 09/02/172232 Signed Impressions: Service Date/Time: Saturday, September 02, 2017 22:46 - CONCLUSION: No acute disease. Sathya Rachel MD Abdomen/Pelvis CT 09/02/17 0000 Signed Impressions: Service Date/Time: Sunday, September 03, 2017 00:14 - CONCLUSION: No acute CT findings in the abdomen or pelvis. Sathya Rachel MD Laboratory Test 09/02/17 22:45 09/02/17 23:15 09/03/17 01:20 09/03/17 07:22 White Blood Count 5.8 TH/MM3 Red Blood Count 3.30 MIL/MM3 Hemoglobin 11.7 GM/DL Hematocrit 34.4 % Mean Corpuscular Volume 104.1 FL Mean Corpuscular Hemoglobin 35.6 PG Mean Corpuscular Hemoglobin Concent 34.2 % Red Cell Distribution Width 16.0 % Platelet Count 152 TH/MM3 Mean Platelet Volume 9.5 FL Neutrophils (%) (Auto) 66.3 % Lymphocytes (%) (Auto) 18.0 % Monocytes (%) (Auto) 15.1 % Eosinophils (%) (Auto) 0.1 % Basophils (%) (Auto) 0.5 % Neutrophils # (Auto) 3.8 TH/MM3 Lymphocytes # (Auto) 1.0 TH/MM3 Monocytes # (Auto) 0.9 TH/MM3 Eosinophils # (Auto) 0.0 TH/MM3 Basophils # (Auto) 0.0 TH/MM3 CBC Comment DIFF FINAL Differential Comment Prothrombin Time 12.0 SEC Prothromb Time International Ratio 1.2 RATIO Activated Partial Thromboplast Time 24.4 SEC Blood Urea Nitrogen 13 MG/DL Creatinine 1.18 MG/DL Random Glucose 283 MG/DL Total Protein 8.0 GM/DL Albumin 3.2 GM/DL Calcium Level 8.3 MG/DL Magnesium Level 1.3 MG/DL Alkaline Phosphatase 285 U/L Aspartate Amino Transf (AST/SGOT) 307 U/L Alanine Aminotransferase (ALT/SGPT) 112 U/L Total Bilirubin 3.9 MG/DL Sodium Level 137 MEQ/L Potassium Level 3.7 MEQ/L Chloride Level 96 MEQ/L Carbon Dioxide Level 27.3 MEQ/L Anion Gap 14 MEQ/L Estimat Glomerular Filtration Rate 75 ML/MIN Lactic Acid Level 3.8 mmol/L 3.2 mmol/L Total Creatine Kinase 49 U/L Troponin I LESS THAN 0.02 NG/ML Lipase 39 U/L Ethyl Alcohol Level LESS THAN 3 MG/DL Urine Color YELLOW Urine Turbidity HAZY Urine pH 6.0 Urine Specific [place] 1.024 Urine Protein 30 mg/dL Urine Glucose (UA) 150 mg/dL Urine Ketones 10 mg/dL Urine Occult Blood NEG Urine Nitrite NEG Urine Bilirubin MOD Urine Urobilinogen GREATER THAN 12.0 MG/DL Urine Leukocyte Esterase TRACE Urine RBC 7 /hpf Urine WBC 8 /hpf Urine Squamous Epithelial Cells 1 /hpf Urine Uric Acid Crystals OCC /hpf Urine Bacteria RARE /hpf Urine Hyaline Casts 81 /lpf Urine Granular Casts 5 /lpf Urine Mucus MANY /lpf Microscopic Urinalysis Comment CULT NOT INDICATED Urine Opiates Screen NEG Urine Barbiturates Screen NEG Urine Amphetamines Screen NEG Urine Benzodiazepines Screen NEG Urine Cocaine Screen NEG Urine Cannabinoids Screen NEG Thyroid Stimulating Hormone 3rd Gen 4.110 uIU/ML Test 09/03/17 07:23 Lactic Acid Level 2.2 mmol/L Date/Time Source Procedure Growth Status 09/02/17 22:45 Blood Peripheral Aerobic Blood Culture - Preliminary NO GROWTH IN 1 DAY Resulted 09/02/17 22:45 Blood Peripheral Anaerobic Blood Culture - Preliminary NO GROWTH IN 1 DAY Resulted Physical Examination HEENT: Normocephalic; atraumatic CHEST:Even/unlabored CARDIAC: RRR ABDOMEN: Soft, distended, epigastric TTP, bowel sounds acitve EXTREMITIES: No clubbing, cyanosis, or edema. SKIN: Normal; no rash; no jaundice. CROSSING GATEMAN: No focal deficits; alert and oriented times three. (Juanita Tucker) Assessment and Plan Plan Assessment: - Projectile vomiting- reports of nausea and vomiting for the past 3-4 weeks with some episodes of hematemesis preceded by extreme retching. Associated epigastric pain, acid reflux, and heartburn. CT abdomen and pelvis W IV contrast (09/03) --> No acute findings. Liver: Severely diminished hepatic attenuation likely reflecting steatosis. No focal mass. No biliary ductal dilatation. - ETOH abuse- reports drinking 1 gallon of vodka a week for multiple years- denies previous diagnosis of liver issues. - Transaminitis likely secondary to ETOH DF- 4 no indication for steroids LFTs currently: AST-307 ALT-112 T bili-3.9 Alk phos-285 No thrombocytopenia, coagulopathy. Mild hypoalbuminemia - Diarrhea- reports of diarrhea for the past 3-4 weeks with some episodes of hematochezia. Associated fecal urgency and incontinence. Family history of colon cancer. Has never had EGD or colonoscopy. - Weight loss- unsure of how much over what period of time. Family history significant for colon cancer, father. 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 Leija and this note is written on her behalf (Juanita Tucker) Physician Comments seen, examine agree with above (Kelli Leija MD) Juanita Tucker September 03, 2017 12:31 Kelli Leija MD September 03, 2017 14:15
[2017-09-03 13:48] LABS: HEMOGLOBIN A1C 7.6 % (4.3-6.0)
--- NOTE | 2017-09-03 13:56 | EKG ---
Date Performed: 09/02/2017 Time Performed: 22:31:39 PTAGE: 67 years EKG: Sinus tachycardia BORDERLINE LEFT AXIS DEVIATION ABNORMAL ECG PREVIOUS TRACING : 03/29/2017 14.46 Since prior tracing, sinus rate has increased. DOCTOR: Wolf Demarco Interpretating Date/Time 09/03/2017 13:56:08
[2017-09-03] MEDS: ATORVASTATIN 40 MG TAB PO SCH (19:37)
[2017-09-03] MEDS ORDERED: POVIDONE IODINE 5% (ANTISEPSIS KIT) 4 APPLICATIONS EACH NARE PRN (22:45)
[2017-09-03] MEDS ORDERED: LACTATED RINGER'S 1000 ML IV PRN (22:45)
[2017-09-03] MEDS ORDERED: SODIUM CHLORID 0.9% 500 ML IV PRN (22:45)
[2017-09-03] MEDS ORDERED: CHLORHEXIDINE GLUCONATE 2 % 1 PACK (2 CLOTHS) TOPICAL PRN (22:45)
[2017-09-04] VITALS (7 sets, daily range): BP systolic 115–160; BP diastolic 71–92; PULSE 85–101; RESP 17–24; TEMP 97.8–98.7; O2SAT 95–99
[2017-09-04] MEDS: SODIUM CHLOR 0.9% 1000 ML INJ 1,000 ML IV SCH ×2 (06:27→23:01)
[2017-09-04 07:49] LABS: AUTOMATED NEUTROPHIL # 3.1 TH/MM3 (1.8-7.7); BASOPHIL % 0.9 % (0.0-2.0); EOSINOPHIL # 0.1 TH/MM3 (0-0.4); HEMATOCRIT 27.6 % (39.0-51.0); HEMOGLOBIN 9.5 GM/DL (13.0-17.0); LYMPH % 25.6 % (9.0-44.0); LYMPHOCYTE # 1.3 TH/MM3 (1.0-4.8); MEAN CELL VOLUME 103.4 FL (80.0-100.0); MEAN CORPUSCULAR HEMOGLOBIN 35.5 PG (27.0-34.0); MEAN CORPUSCULAR HGB CONC 34.3 % (32.0-36.0); MEAN PLATELET VOLUME 9.3 FL (7.0-11.0); MONO % 11.3 % (0.0-8.0); MONOCYTE # 0.6 TH/MM3 (0-0.9); NEUT % 61.2 % (16.0-70.0); PLATELET COUNT 141 TH/MM3 (150-450); RED BLOOD COUNT 2.67 MIL/MM3 (4.50-5.90); RED CELL DISTRIBUTION WIDTH 15.9 % (11.6-17.2); WHITE BLOOD COUNT 5.1 TH/MM3 (4.0-11.0)
[2017-09-04 07:57] LABS: INTERNATIONAL NORMALIZED RATIO 1.2 RATIO; PROTHROMBIN TIME - PATIENT 12.2 SEC (9.8-11.6)
[2017-09-04] MEDS: SULFAMETHOXAZOLE-TRIMETHOPRIM 400-80 MG TAB PO SCH ×2 (08:02→22:08)
[2017-09-04] MEDS: SODIUM CHLORIDE 0.9% FLUSH 10 ML FLUSH IV FLUSH SCH ×2 (08:03→21:00)
[2017-09-04] MEDS: DIGOXIN 0.25 MG TAB PO SCH (08:03)
[2017-09-04] MEDS: ESCITALOPRAM OXALATE 10 MG TAB PO SCH (08:03)
[2017-09-04] MEDS: FOLIC ACID 1 MG TAB PO SCH (08:03)
[2017-09-04] MEDS: MULTIVITAMINS/MINERALS THERAPEUTIC TAB PO SCH (08:04)
[2017-09-04] MEDS: THIAMINE HCL 100 MG TAB PO SCH (08:04)
[2017-09-04] MEDS: DOCUSATE SODIUM 50 MG/SENNA 8.6 MG TAB PO SCH ×2 (08:04→22:08)
[2017-09-04 08:16] LABS: ALBUMIN 2.4 GM/DL (3.4-5.0); BICARBONATE 20.7 MEQ/L (21.0-32.0); CALCIUM 7.4 MG/DL (8.5-10.1); CALCIUM-PROTEIN CORRECTED 8.1 MG/DL (8.5-10.1); CREATININE 0.63 MG/DL (0.60-1.30); TOTAL BILIRUBIN ADULT 2.6 MG/DL (0.2-1.0); TOTAL PROTEIN 5.8 GM/DL (6.4-8.2)
--- NOTE | 2017-09-04 10:58 | GIPROC ---
[facility] [address] [facility]. [facility], [address] EGD PROCEDURE REPORT EXAM DATE: 09/04/2017 PATIENT NAME: Ivan Mays MR #: [id number] BIRTHDATE: 1950 ATTENDING: Elmer Alexander MD ORDER #: [id number] [employer]ES [employer]: [employer] STATUS: inpatient INDICATIONS: The patient is a 67 yr old male here for an EGD due to epigastric abdominal pain and nausea PROCEDURE PERFORMED: EGD w/ biopsy MEDICATIONS: None and Per Anesthesia. TOPICAL ANESTHETIC: CONSENT: The patient understands the risks and benefits of the procedure and understands that these risks include, but are not limited to: sedation, allergic reaction, infection, perforation and/or bleeding. Alternative means of evaluation and treatment include, among others: physical exam, x-rays, and/or surgical intervention. The patient elects to proceed with this endoscopic procedure. medical equipment was checked for proper function. Hand hygiene and appropriate measures for infection prevention was taken. After the risks, benefits and alternatives of the procedure were thoroughly explained, Informed consent was verified, confirmed and timeout was successfully executed by the treatment team. The patient was anesthetized with topical anesthesia and the Babelwayax [id number] endoscope was introduced through the mouth and advanced to the second portion of the duodenum. Retroflexed views revealed no abnormalities The gastroscope was then slowly withdrawn and removed. ESOPHAGUS: There was LA Class A esophagitis noted. A biopsy was performed using cold forceps. Sample sent for histology. A biopsy was performed using cold forceps. Sample sent for histology. STOMACH: There was erythematous severe gastritis in the gastric antrum. A biopsy was performed using cold forceps. Sample sent for histology. DUODENUM: Moderate duodenal inflammation was found in the bulb and second portion of the duodenum. ADVERSE EVENTS: There were no complications. IMPRESSIONS: 1. There was LA Class A esophagitis noted; biopsy was performed 2. There was erythematous gastritis in the gastric antrum; biopsy was performed 3. Duodenal inflammation was found in the bulb and second portion of the duodenum 4. Retroflexed views revealed no abnormalities RECOMMENDATIONS: 1. Await biopsy results. Biopsy results will not be ready for 7-10 days. If you don't hear from us in two weeks, call our office for biopsy results. 2. Anti-reflux regimen 3. Continue PPI 4. Avoid NSAIDS PATIENT CONDITION: stable DISPOSITION: Inpatient REPEAT EXAM: Return 1 year EGD pending biopsy results Elmer Alexander MD eSigned: Elmer Alexander MD 09/04/2017 10:58 AM cc: PATIENT NAME: Ivan Mays MR#: [id number]
[2017-09-04] MEDS ORDERED: PROPOFOL 200 MG/20 ML AMP IV ONE (12:00)
[2017-09-04] MEDS ORDERED: LIDOCAINE HCL 1% PF 5 ML SYRINGE OTHER ONE (12:00)
--- NOTE | 2017-09-04 12:33 | HHI.PR ---
Subjective Remarks awake and alert, when asked how much he drinks "too much", states about a gallon a week denies any fever or chills admits to frequency usually complains of constipation- but states had loose stools this am no fever but states feels feverish last 2 days no cough, no abdominal pain, headaches or neck pain back from EGD- toelrated procedure well already had lunch post procedure- tolerated wekk- no nausea or vomiting Objective Vitals Vital Signs Date Time Temp Pulse Resp B/P (MAP) Pulse Ox O2 Delivery O2 Flow Rate FiO2 09/04/17 12:00 98.2 91 22 160/92 (114) 98 09/04/17 11:21 88 18 134/70 (91) 97 09/04/17 11:11 97.3 91 18 136/76 (96) 97 09/04/17 08:00 97.9 89 24 139/87 (104) 95 09/04/17 04:00 97.8 89 17 115/74 (88) 96 09/04/17 00:24 85 09/04/17 00:00 98.3 86 17 115/71 (86) 97 09/03/17 20:08 97.5 87 18 138/75 (96) 95 09/03/17 20:00 88 09/03/17 15:59 97.7 82 20 115/73 (87) 96 I/O 09/03/17 09/03/17 09/03/17 09/04/17 09/04/17 09/04/17 07:00 15:00 23:00 07:00 15:00 23:00 Intake Total 1541 ml 1000 ml 1360 ml 1000 ml Output Total 200 ml 600 ml Balance 1341 ml 1000 ml 760 ml 1000 ml Intake Oral 240 ml 360 ml 0 ml IV Total 1301 ml 1000 ml 1000 ml 1000 ml Output Urine Total 200 ml 600 ml # Voids 1 2 # Bowel Movements 2 Result Diagram: 09/04/1748 09/04/17647 Imaging Last Impressions Head CT 09/02/172232 Signed Impressions: Service Date/Time: Sunday, September 03, 2017 00:11 - CONCLUSION: No acute intracranial findings Sathya Rachel MD Chest X-Ray 09/02/172232 Signed Impressions: Service Date/Time: Saturday, September 02, 2017 22:46 - CONCLUSION: No acute disease. Sathya Rachel MD Abdomen/Pelvis CT 09/02/17 0000 Signed Impressions: Service Date/Time: Sunday, September 03, 2017 00:14 - CONCLUSION: No acute CT findings in the abdomen or pelvis. Sathya Rachel MD Objective Remarks awake and alert, not tremulous anicteric no oral thrush no nuchal rigidity lungs- no reales regular rhythm abdomen soft, good bowel sounds extremites no edema, good peripheral pulses no open wounds Procedures 09/04 EGD w/ biopsy A/P Problem List: (1) Alcohol withdrawal ICD Code: F10.239 - Alcohol dependence with withdrawal, unspecified (2) Elevated LFTs ICD Code: R79.89 - Other specified abnormal findings of blood chemistry (3) DM (diabetes mellitus) ICD Code: E11.9 - Type 2 diabetes mellitus without complications Assessment and Plan 67 years old male Alcohol Abuse: w/ Acute Alcohol Withdrawal, +tremor, +tachycardia/palpitations , drinks 1gallon Vodka every few days, last drink yesterday, Alcohol negative. CIWA, Seizure Precautions, MVT/Thiamine/Folate replacement. IVF for hydration. Telemetry. Gram positive bacteremia- source ? repeat blood cultures start Vancomycin. Consult ID CXR negative chekc ECHo S/P EGD- Esophagitis PPI UTI- started on Bactrim Alcoholic hepatitis - Elevated LFTs: likely related to half-way alcohol abuse. ff LFT trend DM: Sliding scale w/ Accu-Cheks. trending down - per patient on Lantus and Humalog- liklely non compliant Dietitian consult. diabetes reinforcement/teaching patient complains of poor po appetite- d/w him that due to alcoholism - poor po start levemer 8 units hs History of CAD/CMP- not in clinical failure on Kareem/coreg/digoxin/Amlodipine as OP restart coreg 25 mg po bid continue on digoxin Deocnditioning- PT consult DVT Prophylaxis: SCD/Teds Social work for d/c planning as needed. Ramón Crespo MD September 04, 2017 12:33
[2017-09-04] MEDS ORDERED: VANCOMYCIN INJ 1,000 MG in SODIUM CHLOR 0.9% 250 ML INJ 250 ML IV SCH (13:00)
[2017-09-04] MEDS ORDERED: Vancomycin Consult Pharmacy 1 EA OTHER SCH (13:00)
[2017-09-04] MEDS ORDERED: METOCLOPRAMIDE HCL 10 MG/2 ML VIAL IV PUSH SCH (14:00)
[2017-09-04] MEDS: VANCOMYCIN INJ 1,250 MG in SODIUM CHLOR 0.9% 250 ML INJ 250 ML IV SCH (14:33)
[2017-09-04] MEDS: INSULIN ASPART SUPPLEMENTAL SCALE SQ SCH ×2 (16:56→21:00)
[2017-09-04] MEDS: ATORVASTATIN 40 MG TAB PO SCH (22:07)
[2017-09-04] MEDS: CARVEDILOL 12.5 MG TAB PO SCH (22:07)
[2017-09-04] MEDS: INSULIN DETEMIR 100 UNITS/ML VIAL SQ SCH (22:08)
[2017-09-05] VITALS: BP 112/62; PULSE 92; RESP 20; TEMP 98.1; O2SAT 96
[2017-09-05] MEDS: VANCOMYCIN INJ 1,250 MG in SODIUM CHLOR 0.9% 250 ML INJ 250 ML IV SCH ×2 (02:06→14:31)
[2017-09-05 04:00] VITALS: BP 113/67; PULSE 85; RESP 20; TEMP 98.2; O2SAT 97
[2017-09-05] MEDS: INSULIN ASPART SUPPLEMENTAL SCALE SQ SCH ×4 (07:07→21:00)
[2017-09-05] MEDS: SODIUM CHLORIDE 0.9% FLUSH 10 ML FLUSH IV FLUSH SCH ×2 (07:50→21:22)
[2017-09-05] MEDS: DOCUSATE SODIUM 50 MG/SENNA 8.6 MG TAB PO SCH ×2 (07:51→21:00)
[2017-09-05] MEDS: SULFAMETHOXAZOLE-TRIMETHOPRIM 400-80 MG TAB PO SCH ×2 (07:52→21:21)
[2017-09-05] MEDS: MULTIVITAMINS/MINERALS THERAPEUTIC TAB PO SCH (07:53)
[2017-09-05] MEDS: CARVEDILOL 12.5 MG TAB PO SCH ×2 (07:54→21:22)
[2017-09-05] MEDS: ESCITALOPRAM OXALATE 10 MG TAB PO SCH (07:54)
[2017-09-05] MEDS: THIAMINE HCL 100 MG TAB PO SCH (07:54)
[2017-09-05] MEDS: DIGOXIN 0.25 MG TAB PO SCH (07:55)
[2017-09-05] MEDS: FOLIC ACID 1 MG TAB PO SCH (07:55)
[2017-09-05 08:00] VITALS: BP 142/85; PULSE 77; RESP 19; TEMP 98.5; O2SAT 95
--- NOTE | 2017-09-05 08:00 | HHI.PR ---
Subjective Remarks patient afebrile no nausea or vomiting no fever or chills no urinary symptoms not tremulous Objective Vitals Vital Signs Date Time Temp Pulse Resp B/P (MAP) Pulse Ox O2 Delivery O2 Flow Rate FiO2 09/05/17 04:00 98.2 85 20 113/67 (82) 97 09/05/17 00:00 98.1 92 20 112/62 (79) 96 09/04/17 20:00 98.7 101 22 126/78 (94) 97 09/04/17 16:00 98.2 97 20 138/77 (97) 99 09/04/17 12:00 98.2 91 22 160/92 (114) 98 09/04/17 11:21 88 18 134/70 (91) 97 09/04/17 11:11 97.3 91 18 136/76 (96) 97 09/04/17 08:00 97.9 89 24 139/87 (104) 95 I/O 09/04/17 09/04/17 09/04/17 09/05/17 09/05/17 09/05/17 07:00 15:00 23:00 07:00 15:00 23:00 Intake Total 1000 ml 100 ml 1050 ml 0 ml Output Total 600 ml 200 ml Balance 1000 ml 100 ml 450 ml -200 ml Intake Oral 0 ml 800 ml 0 ml IV Total 1000 ml 250 ml Other 100 ml Output Urine Total 600 ml 200 ml # Voids 2 1 # Bowel Movements 1 0 Result Diagram: 09/04/17 0648 09/04/17 0648 Imaging Last Impressions Head CT 09/02/172232 Signed Impressions: Service Date/Time: Sunday, September 03, 2017 00:11 - CONCLUSION: No acute intracranial findings Sathya Rachel MD Chest X-Ray 09/02/172232 Signed Impressions: Service Date/Time: Saturday, September 02, 2017 22:46 - CONCLUSION: No acute disease. Sathya Rachel MD Abdomen/Pelvis CT 09/02/17 0000 Signed Impressions: Service Date/Time: Sunday, September 03, 2017 00:14 - CONCLUSION: No acute CT findings in the abdomen or pelvis. Sathya Rachel MD Objective Remarks awake and alert, not tremulous anicteric no oral thrush no nuchal rigidity lungs- no rales regular rhythm abdomen soft, good bowel sounds extremities no edema, good peripheral pulses no open wounds Procedures 09/04 EGD w/ biopsy A/P Problem List: (1) Alcohol withdrawal ICD Code: F10.239 - Alcohol dependence with withdrawal, unspecified (2) Elevated LFTs ICD Code: R79.89 - Other specified abnormal findings of blood chemistry (3) DM (diabetes mellitus) ICD Code: E11.9 - Type 2 diabetes mellitus without complications Assessment and Plan 67 years old male Alcohol Abuse: w/ Acute Alcohol Withdrawal, +tremor, +tachycardia/palpitations , drinks 1gallon Vodka every few days, last drink yesterday, Alcohol negative. CIWA, Seizure Precautions, MVT/Thiamine/Folate replacement. on Librium 10 mg tid- gradual taper no sings of DTs Gram positive bacteremia- source ? final c and s pending repeat blood cultures. started Vancomycin 09/04. . Consult ID CXR negative check ECHo S/P EGD- Esophagitis PPI UTI- started on Bactrim Alcoholic hepatitis - Elevated LFTs: admits to alcohol abuse. ff LFT trend- down trend US of abdomen - unremarkable DM: Sliding scale w/ Accu-Cheks. trending down - per patient on Lantus and Humalog- liklely non compliant Dietitian consult. 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 Ramón Crespo MD September 05, 2017 08:00
[2017-09-05 08:15] LABS: AUTOMATED NEUTROPHIL # 2.6 TH/MM3 (1.8-7.7); BASOPHIL % 0.8 % (0.0-2.0); EOSINOPHIL # 0.1 TH/MM3 (0-0.4); EOSINOPHIL % 1.8 % (0.0-4.0); HEMATOCRIT 27.3 % (39.0-51.0); HEMOGLOBIN 9.5 GM/DL (13.0-17.0); LYMPH % 33.9 % (9.0-44.0); LYMPHOCYTE # 1.7 TH/MM3 (1.0-4.8); MEAN CELL VOLUME 103.4 FL (80.0-100.0); MEAN CORPUSCULAR HGB CONC 34.8 % (32.0-36.0); MEAN PLATELET VOLUME 8.9 FL (7.0-11.0); MONO % 10.5 % (0.0-8.0); MONOCYTE # 0.5 TH/MM3 (0-0.9); PLATELET COUNT 137 TH/MM3 (150-450); RED BLOOD COUNT 2.64 MIL/MM3 (4.50-5.90); WHITE BLOOD COUNT 4.9 TH/MM3 (4.0-11.0)
[2017-09-05 08:43] LABS: ALBUMIN 2.4 GM/DL (3.4-5.0); AST (GOT) 147 U/L (15-37); BICARBONATE 25.9 MEQ/L (21.0-32.0); BLOOD UREA NITROGEN 4 MG/DL (7-18); CALCIUM 7.6 MG/DL (8.5-10.1); CHLORIDE 109 MEQ/L (98-107); CREATININE 0.65 MG/DL (0.60-1.30); GLOMERULAR FILTRATION RATE 149 ML/MIN (>89); GLUCOSE,RANDOM 72 MG/DL (74-106); SODIUM (NA) 143 MEQ/L (136-145)
[2017-09-05 08:45] LABS: ALKALINE PHOSPHATASE 183 U/L (45-117); ALT (GPT) 62 U/L (12-78); TOTAL BILIRUBIN ADULT 1.9 MG/DL (0.2-1.0)
[2017-09-05 09:29] LABS: FOLATE 8.1 NG/ML (3.1-17.5)
[2017-09-05 12:00] VITALS: BP 143/87; PULSE 79; RESP 18; TEMP 98.5; O2SAT 96
--- NOTE | 2017-09-05 12:42 | PD.ID.CON ---
History of Present Illness Service ID Consult Requested By Dr Crespo Reason for Consult gram posiotive bacteremia Primary Care Physician No Primary Care Physician Diagnoses: History of Present Illness 67 yo male came to the hospital with 2-3 weeks of poor appetite, generalysed weakness, weight los and palpitations No feve denies chills and subjective fever On presentation juandiced, abbnormal LFTs, lactic acid mildly elevated, no fever Blood clx on admission positive 08/02 for Staph epi No h/o pacemakers,,prosthetic valves, or joints Repeat blood clx so far are negative @ 1 day He drinks excessively and CT showed hepatosteatosis EGD was performed and showed esophagitis Review of Systems Except as stated in HPI: all other systems reviewed are Neg Past Family Social History Allergies: Coded Allergies: No Known Allergies (Unverified , 09/02/17) Past Medical History HTN, CAD, DM and Alcohol Abuse Past Surgical History None Active Ordered Medications Medications where reviewed in EMR Antibiotics Include: vanco bactrim Family History Reviewed. No h/o DM or CAD Social History Drinks 1 gallon of vodka every few days. Negative for tobacco or drugs. Physical Exam Vital Signs Vital Signs Date Time Temp Pulse Resp B/P (MAP) Pulse Ox O2 Delivery O2 Flow Rate FiO2 09/05/17 08:00 98.5 77 19 142/85 (104) 95 09/05/17 04:00 98.2 85 20 113/67 (82) 97 09/05/17 00:00 98.1 92 20 112/62 (79) 96 09/04/17 20:00 98.7 101 22 126/78 (94) 97 09/04/17 16:00 98.2 97 20 138/77 (97) 99 Physical Exam CONSTITUTIONAL/GENERAL: This is an adequately nourished patient, in no apparent distress. TUBES/LINES/DRAINS: SKIN: No jaundice, rashes, or lesions. Skin temperature appropriate. Not diaphoretic. HEAD: Atraumatic. Normocephalic. EYES: Pupils equal and round and reactive. Extraocular motions intact. No scleral icterus. No injection or drainage. Fundi not examined. ENT: Hearing grossly normal. Nose without bleeding or purulent drainage. Throat without visible erythema, exudates, masses, or lesions. NECK: Trachea midline. Supple, nontender. No palpable thyroid enlargement or nodularity. CARDIOVASCULAR: Regular rate and rhythm without murmurs, gallops, or rubs. No JVD. Peripheral pulses symmetric. RESPIRATORY/CHEST: Symmetric, unlabored respirations. Clear to auscultation. Breath sounds equal bilaterally. No wheezes, rales, or rhonchi. GASTROINTESTINAL: Abdomen soft, non-tender, nondistended. No hepato-splenomegaly , or palpable masses. No guarding. Bowel sounds present. GENITOURINARY: Without palpable bladder distension. MUSCULOSKELETAL: Extremities without clubbing, cyanosis, or edema. No joint tenderness or effusion noted. No calf tenderness. No mottling or clubbing. LYMPHATICS: No palpable cervical or supraclavicular adenopathy. NEUROLOGICAL: Awake and alert. Motor and sensory grossly within normal limits. Follows commands. Clear speech. Moves all extremities. PSYCHIATRIC: No obvious anxiety/depression. no apparent hallucinations or other psychotic thought process. Laboratory Laboratory Tests Test 09/05/17 06:47 White Blood Count 4.9 Red Blood Count 2.64 Hemoglobin 9.5 Hematocrit 27.3 Mean Corpuscular Volume 103.4 Mean Corpuscular Hemoglobin 36.0 Mean Corpuscular Hemoglobin Concent 34.8 Red Cell Distribution Width 16.0 Platelet Count 137 Mean Platelet Volume 8.9 Neutrophils (%) (Auto) 53.0 Lymphocytes (%) (Auto) 33.9 Monocytes (%) (Auto) 10.5 Eosinophils (%) (Auto) 1.8 Basophils (%) (Auto) 0.8 Neutrophils # (Auto) 2.6 Lymphocytes # (Auto) 1.7 Monocytes # (Auto) 0.5 Eosinophils # (Auto) 0.1 Basophils # (Auto) 0.0 CBC Comment DIFF FINAL Differential Comment Blood Urea Nitrogen 4 Creatinine 0.65 Random Glucose 72 Total Protein 6.0 Albumin 2.4 Calcium Level 7.6 Alkaline Phosphatase 183 Aspartate Amino Transf (AST/SGOT) 147 Alanine Aminotransferase (ALT/SGPT) 62 Total Bilirubin 1.9 Sodium Level 143 Potassium Level 3.1 Chloride Level 109 Carbon Dioxide Level 25.9 Anion Gap 8 Estimat Glomerular Filtration Rate 149 Vitamin B12 Level 1350 Folate 8.1 Date/Time Source Procedure Growth Status 09/04/17 11:53 Blood Peripheral Aerobic Blood Culture - Preliminary NO GROWTH IN 1 DAY Resulted 09/04/17 11:53 Blood Peripheral Anaerobic Blood Culture - Preliminary NO GROWTH IN 1 DAY Resulted Result Diagram: 09/05/17 0647 09/05/17 0647 Imaging Last Impressions Head CT 09/02/172232 Signed Impressions: Service Date/Time: Sunday, September 03, 2017 00:11 - CONCLUSION: No acute intracranial findings Sathya Rachel MD Chest X-Ray 09/02/172232 Signed Impressions: Service Date/Time: Saturday, September 02, 2017 22:46 - CONCLUSION: No acute disease. Sathya Rachel MD Abdomen/Pelvis CT 09/02/17 0000 Signed Impressions: Service Date/Time: Sunday, September 03, 2017 00:14 - CONCLUSION: No acute CT findings in the abdomen or pelvis. Sathya Rachel MD Assessment and Plan Assessment and Plan High grade Staph epi bacteremia No risk factors for coag neg staph bacteremia (e.i. prosthetic endovascular devices or lines) Chronic alcoholism Here for w/u of weight loss 2 D eecho fu repeat BC fu ID/S on the Staph epi isolate cont vanco for now ESR, RF Edith Kerns MD September 05, 2017 12:42
--- NOTE | 2017-09-05 14:33 | HHI.GIFU ---
Subjective Remarks Pt resting in bed Some nausea today, denies emesis Reports some abdominal pain, generalized Still having diarrhea, one episode this morning (Juanita Tucker) Objective Vitals I&O Vital Signs Date Time Temp Pulse Resp B/P (MAP) Pulse Ox O2 Delivery O2 Flow Rate FiO2 09/05/17 12:00 98.5 79 18 143/87 (105) 96 09/05/17 08:00 98.5 77 19 142/85 (104) 95 09/05/17 04:00 98.2 85 20 113/67 (82) 97 09/05/17 00:00 98.1 92 20 112/62 (79) 96 09/04/17 20:00 98.7 101 22 126/78 (94) 97 09/04/17 16:00 98.2 97 20 138/77 (97) 99 I/O 09/04/17 09/04/17 09/04/17 09/05/17 09/05/17 09/05/17 07:00 15:00 23:00 07:00 15:00 23:00 Intake Total 1000 ml 100 ml 1050 ml 0 ml Output Total 600 ml 200 ml Balance 1000 ml 100 ml 450 ml -200 ml Intake Oral 0 ml 800 ml 0 ml IV Total 1000 ml 250 ml Other 100 ml Output Urine Total 600 ml 200 ml # Voids 2 1 # Bowel Movements 1 0 Laboratory Laboratory Tests Test 09/05/17 06:47 White Blood Count 4.9 Red Blood Count 2.64 Hemoglobin 9.5 Hematocrit 27.3 Mean Corpuscular Volume 103.4 Mean Corpuscular Hemoglobin 36.0 Mean Corpuscular Hemoglobin Concent 34.8 Red Cell Distribution Width 16.0 Platelet Count 137 Mean Platelet Volume 8.9 Neutrophils (%) (Auto) 53.0 Lymphocytes (%) (Auto) 33.9 Monocytes (%) (Auto) 10.5 Eosinophils (%) (Auto) 1.8 Basophils (%) (Auto) 0.8 Neutrophils # (Auto) 2.6 Lymphocytes # (Auto) 1.7 Monocytes # (Auto) 0.5 Eosinophils # (Auto) 0.1 Basophils # (Auto) 0.0 CBC Comment DIFF FINAL Differential Comment Blood Urea Nitrogen 4 Creatinine 0.65 Random Glucose 72 Total Protein 6.0 Albumin 2.4 Calcium Level 7.6 Alkaline Phosphatase 183 Aspartate Amino Transf (AST/SGOT) 147 Alanine Aminotransferase (ALT/SGPT) 62 Total Bilirubin 1.9 Sodium Level 143 Potassium Level 3.1 Chloride Level 109 Carbon Dioxide Level 25.9 Anion Gap 8 Estimat Glomerular Filtration Rate 149 Vitamin B12 Level 1350 Folate 8.1 Date/Time Source Procedure Growth Status 09/04/17 11:53 Blood Peripheral Aerobic Blood Culture - Preliminary NO GROWTH IN 1 DAY Resulted 09/04/17 11:53 Blood Peripheral Anaerobic Blood Culture - Preliminary NO GROWTH IN 1 DAY Resulted Imaging Last Impressions Head CT 09/02/172232 Signed Impressions: Service Date/Time: Sunday, September 03, 2017 00:11 - CONCLUSION: No acute intracranial findings Sathya Rachel MD Chest X-Ray 09/02/172232 Signed Impressions: Service Date/Time: Saturday, September 02, 2017 22:46 - CONCLUSION: No acute disease. Sathya Rachel MD Abdomen/Pelvis CT 09/02/17 0000 Signed Impressions: Service Date/Time: Sunday, September 03, 2017 00:14 - CONCLUSION: No acute CT findings in the abdomen or pelvis. Sathya Rachel MD Physical Exam HEENT: Normocephalic; atraumatic CHEST: Even/unlabored CARDIAC: RRR ABDOMEN: Soft, nondistended, mild diffuse tenderness; bowel sounds active EXTREMITIES: No clubbing, cyanosis, or edema. SKIN: Normal; no rash; no jaundice. BAG SHAKER: No focal deficits; alert and oriented times three. (Juanita Tucker) Assessment and Plan Plan Assessment: - Projectile vomiting- reports of nausea and vomiting for the past 3-4 weeks with some episodes of hematemesis preceded by extreme retching. Associated epigastric pain, acid reflux, and heartburn. CT abdomen and pelvis W IV contrast (09/03) --> No acute findings. Liver: Severely diminished hepatic attenuation likely reflecting steatosis. No focal mass. No biliary ductal dilatation. - ETOH abuse- reports drinking 1 gallon of vodka a week for multiple years- denies previous diagnosis of liver issues. - Transaminitis likely secondary to ETOH DF- 4 no indication for steroids LFTs currently: AST-307 ALT-112 T bili-3.9 Alk phos-285 No thrombocytopenia, coagulopathy. Mild hypoalbuminemia - Diarrhea- reports of diarrhea for the past 3-4 weeks with some episodes of hematochezia. Associated fecal urgency and incontinence. Family history of colon cancer. Has never had EGD or colonoscopy. - Weight loss- unsure of how much over what period of time. Family history significant for colon cancer, father. (09/05) EGD --> Class A esophagitis, erythematous gastritis, duodenal inflammation in the bulb and second portion of the duodenum. Pt reports some nausea today, no emesis. Initially colonoscopy was held and only EGD was done because pt would not have tolerated the prep and was unable to get to the bathroom (syncopal episode on the toilet day of initial consult) Now pt seems able to tolerate Mag Citrate prep and he is agreeable to colonoscopy. LFTs trending down, hepatitis panel negative. Plan: Colonoscopy tomorrow Obtain consent Clear liquids today NPO after MN Stool studies pending Monitor LFTs Control of BGL- might be partial cause of symptoms Further recommendations based on clinical course and results of above Pt has been seen and examined by myself and Dr. Alexander and this note is written on his behalf (Juanita Tucker) Physician Comments Seen and examined with LITO, colonoscopy planned for tomorrow if he can do prep. Mag citrate prep ordered. (Elmer Alexander MD) Juanita Tucker September 05, 2017 14:33 Elmer Alexander MD September 05, 2017 15:44
[2017-09-05 16:00] VITALS: BP 138/72; PULSE 80; RESP 17; TEMP 97.4; O2SAT 98
[2017-09-05] MEDS ORDERED: MAGNESIUM CITRATE SOLN 300 ML BTL PO ONE ×2 (16:00→18:00)
[2017-09-05 20:00] VITALS: BP 139/76; PULSE 85; RESP 18; TEMP 98.4; O2SAT 95
[2017-09-05] MEDS: INSULIN DETEMIR 100 UNITS/ML VIAL SQ SCH (21:00)
[2017-09-05] MEDS: ATORVASTATIN 40 MG TAB PO SCH (21:22)
[2017-09-05 22:09] LABS: RHEUMATOID FACTOR SCREEN NEGATIVE (NEGATIVE)
[2017-09-06] VITALS: BP 128/78; PULSE 81; RESP 18; TEMP 98.3; O2SAT 95
[2017-09-06] MEDS ORDERED: LACTATED RINGER'S 1000 ML IV PRN (01:00)
[2017-09-06] MEDS ORDERED: CHLORHEXIDINE GLUCONATE 2 % 1 PACK (2 CLOTHS) TOPICAL PRN (01:00)
[2017-09-06] MEDS ORDERED: POVIDONE IODINE 5% (ANTISEPSIS KIT) 4 APPLICATIONS EACH NARE PRN (01:00)
[2017-09-06] MEDS ORDERED: SODIUM CHLORID 0.9% 500 ML IV PRN (01:00)
[2017-09-06] MEDS ORDERED: PHARMACY ORDERED LAB ONE (02:45)
[2017-09-06] MEDS: VANCOMYCIN INJ 1,250 MG in SODIUM CHLOR 0.9% 250 ML INJ 250 ML IV SCH (03:02)
[2017-09-06 04:00] VITALS: BP 128/74; PULSE 81; RESP 18; TEMP 98.7; O2SAT 96
[2017-09-06 08:00] VITALS: BP 132/78; PULSE 74; RESP 19; TEMP 97.9; O2SAT 98
[2017-09-06] MEDS: INSULIN ASPART SUPPLEMENTAL SCALE SQ SCH ×3 (08:00→21:00)
[2017-09-06] MEDS: CARVEDILOL 12.5 MG TAB PO SCH ×2 (09:00→21:26)
--- NOTE | 2017-09-06 09:38 | HHI.PR ---
Subjective Remarks nof urther episodes of nausea or vomiting- "ate all day yesterday- great " loose stools from colon prep afebrile states relative hypoglycemic reactions with BS less than 100- "I don't do well whemn my sugars are less than 100" Objective Vitals Vital Signs Date Time Temp Pulse Resp B/P (MAP) Pulse Ox O2 Delivery O2 Flow Rate FiO2 09/06/17 08:00 97.9 74 19 132/78 (96) 98 09/06/17 04:00 98.7 81 18 128/74 (92) 96 09/06/17 00:00 98.3 81 18 128/78 (95) 95 09/05/17 20:00 98.4 85 18 139/76 (97) 95 09/05/17 16:00 97.4 80 17 138/72 (94) 98 09/05/17 12:00 98.5 79 18 143/87 (105) 96 I/O 09/05/17 09/05/17 09/05/17 09/06/17 09/06/17 09/06/17 07:00 15:00 23:00 07:00 15:00 23:00 Intake Total 0 ml 910 ml 262.5 ml Output Total 200 ml 350 ml Balance -200 ml 910 ml -87.5 ml Intake Oral 0 ml 660 ml 0 ml IV Total 250 ml 262.5 ml Output Urine Total 200 ml 350 ml # Voids 1 4 1 # Bowel Movements 0 1 1 Result Diagram: 09/05/17 0647 09/05/17 0647 Imaging Last Impressions Head CT 09/02/172232 Signed Impressions: Service Date/Time: Sunday, September 03, 2017 00:11 - CONCLUSION: No acute intracranial findings Sathya Rachel MD Chest X-Ray 09/02/172232 Signed Impressions: Service Date/Time: Saturday, September 02, 2017 22:46 - CONCLUSION: No acute disease. Sathya Rachel MD Abdomen/Pelvis CT 09/02/17 0000 Signed Impressions: Service Date/Time: Sunday, September 03, 2017 00:14 - CONCLUSION: No acute CT findings in the abdomen or pelvis. Sathya Rachel MD Objective Remarks awake and alert, anicteric no oral thrush no nuchal rigidity lungs- no rales regular rhythm abdomen soft, good bowel sounds extremities no edema, good peripheral pulses no open wounds Procedures 09/04 EGD w/ biopsy A/P Problem List: (1) Alcohol withdrawal ICD Code: F10.239 - Alcohol dependence with withdrawal, unspecified (2) Elevated LFTs ICD Code: R79.89 - Other specified abnormal findings of blood chemistry (3) DM (diabetes mellitus) ICD Code: E11.9 - Type 2 diabetes mellitus without complications Assessment and Plan 67 years old male Alcohol Abuse: w/ Acute Alcohol Withdrawal, +tremor, +tachycardia/palpitations , drinks 1gallon Vodka every few days, last drink yesterday, Alcohol negative. CIWA, Seizure Precautions, MVT/Thiamine/Folate replacement. on Librium 10 mg tid- gradual taper no signs Gram positive bacteremia- growing S. epidermidis final s pending repeat blood cultures. - so far no growth started Vancomycin 09/04. . ID ff CXR negative check ECHo S/P EGD- Esophagitis PPI. advised- no NSAIds UTI- started on Bactrim Alcoholic hepatitis - Elevated LFTs: admits to alcohol abuse. ff LFT trend- down trend US of abdomen - unremarkable DM: Sliding scale w/ Accu-Cheks. trending down - per patient on Lantus and Humalog- liklely non compliant A1C 7.6 Dietitian consult. diabetes reinforcement/teaching patient complains of poor po appetite- d/w him that due to alcoholism - poor po started levemer 8 units hs- good readings patient state relative hypoglycemic reactions with BS less than 100 History of CAD/CMP- not in clinical failure on Kareem/coreg/digoxin/Amlodipine as OP restart coreg 25 mg po bid continue on digoxin Macrocytic anemia -check B12, folate level= normal for coonoscopy today Deocnditioning- PT consult- feeling stronger DVT Prophylaxis: SCD/Teds Social work for d/c planning as needed. Ramón Crespo MD September 06, 2017 09:38
[2017-09-06] MEDS: SULFAMETHOXAZOLE-TRIMETHOPRIM 400-80 MG TAB PO SCH ×2 (09:39→21:26)
[2017-09-06] MEDS: DOCUSATE SODIUM 50 MG/SENNA 8.6 MG TAB PO SCH ×2 (09:39→21:00)
[2017-09-06] MEDS: FOLIC ACID 1 MG TAB PO SCH (09:39)
[2017-09-06] MEDS: MULTIVITAMINS/MINERALS THERAPEUTIC TAB PO SCH (09:39)
[2017-09-06] MEDS: DIGOXIN 0.25 MG TAB PO SCH (09:39)
[2017-09-06] MEDS: THIAMINE HCL 100 MG TAB PO SCH (09:39)
[2017-09-06] MEDS: ESCITALOPRAM OXALATE 10 MG TAB PO SCH (09:39)
[2017-09-06 09:41] VITALS: PULSE 74
[2017-09-06] MEDS: SODIUM CHLORIDE 0.9% FLUSH 10 ML FLUSH IV FLUSH SCH ×2 (09:43→21:28)
[2017-09-06] MEDS ORDERED: METOPROLOL TARTRATE 25 MG TAB ONE (10:56)
[2017-09-06 11:19] LABS: BICARBONATE 15.7 MEQ/L (21.0-32.0); CREATININE 0.77 MG/DL (0.60-1.30)
[2017-09-06] MEDS ORDERED: PROPOFOL 200 MG/20 ML AMP IV ONE (12:00)
--- NOTE | 2017-09-06 13:32 | GIPROC ---
[facility] [address] [facility]. 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 PREP QUALITY: The [place] Bowel Prep Score was Right colon 3, Mid colon 3, and Left colon 2. Total = 8. PREP TYPE:GoLytely ESTIMATED BLOOD LOSS: None CONSENT: The patient understands the risks and benefits of the procedure and understands that these risks include, but are not limited to: sedation, allergic reaction, infection, perforation and/or bleeding. Alternative means of evaluation and treatment include, among others: physical exam, x-rays, and/or surgical intervention. The patient elects to proceed with this endoscopic procedure. medical equipment was checked for proper function. Hand hygiene and appropriate measures for infection prevention was taken. After the risks, benefits and alternatives of the procedure were thoroughly explained, Informed consent was verified, confirmed and timeout was successfully executed by the treatment team. A digital exam revealed external hemorrhoids The Pentax [id number] endoscope was introduced through the anus and advanced to the cecum, which was identified by both the appendix and ileocecal valve. The instrument was then slowly withdrawn as the colon was fully examined. COLON FINDINGS: Moderate diverticulosis was noted in the sigmoid colon. No bleeding was noted from the diverticulosis. Retroflexed views revealed internal hemorrhoids and Retroflexed views revealed medium internal hemorrhoids The scope was then completely withdrawn from the patient and the procedure terminated. ADVERSE EVENTS: There were no complications. IMPRESSIONS: 1. Moderate diverticulosis was noted in the sigmoid colon 2. Retroflexed views revealed internal hemorrhoids 3. Retroflexed views revealed medium internal hemorrhoids 4. Revealed external hemorrhoids RECOMMENDATIONS: 1. Benefiber 2 tsp daily 2. Continue surveillance 3. Yearly hemoccult 4. High fiber diet 5. No seeds, nuts and popcorn in diet RECALL: Return 5 years Colonoscopy Elmer Alexander MD eSigned: Elmer Alexander MD 09/06/2017 1:32 PM cc:
[2017-09-06] MEDS: VANCOMYCIN INJ 1,500 MG in SODIUM CHLORID 0.9% 500 ML INJ 500 ML IV SCH (14:44)
--- NOTE | 2017-09-06 14:56 | HHI.PR ---
Addendum to Inpatient Note Additional Information attempted tyo see the pt He is off the floor growing Staph epi 4/4 bottles ESR 25 RF neg cont vanco 2 D echo fu repeat BC will see Edith Irby MD September 06, 2017 14:56
[2017-09-06 16:00] VITALS: BP 112/72; PULSE 82; RESP 17; TEMP 98.2; O2SAT 99
[2017-09-06] MEDS ORDERED: POTASSIUM BICARBONATE 25 MEQ EFFERVESCENT TAB PO ONE (17:00)
[2017-09-06 20:00] VITALS: BP 119/68; PULSE 84; RESP 18; TEMP 97.9; O2SAT 94
[2017-09-06] MEDS: INSULIN DETEMIR 100 UNITS/ML VIAL SQ SCH (21:00)
[2017-09-06] MEDS ORDERED: POTASSIUM BICARBONATE 25 MEQ EFFERVESCENT TAB PO SCH (21:00)
[2017-09-06] MEDS: ATORVASTATIN 40 MG TAB PO SCH (21:26)
[2017-09-07] VITALS: BP 122/66; PULSE 84; RESP 18; TEMP 98.3; O2SAT 96
[2017-09-07] MEDS: VANCOMYCIN INJ 1,500 MG in SODIUM CHLORID 0.9% 500 ML INJ 500 ML IV SCH ×2 (03:38→14:16)
[2017-09-07 08:00] VITALS: BP 150/79; PULSE 76; RESP 20; TEMP 98.2; O2SAT 96
[2017-09-07 08:27] LABS: CALCIUM 7.9 MG/DL (8.5-10.1); CREATININE 0.94 MG/DL (0.60-1.30)
--- NOTE | 2017-09-07 09:02 | HHI.PR ---
Subjective Remarks feels great appetite "getting better" no fever or chills patient does not like the Keff- -d/w will change to pill form Objective Vitals Vital Signs Date Time Temp Pulse Resp B/P (MAP) Pulse Ox O2 Delivery O2 Flow Rate FiO2 09/07/17 08:00 98.2 76 20 150/79 (102) 96 09/07/17 00:00 98.3 84 18 122/66 (84) 96 09/06/17 20:00 97.9 84 18 119/68 (85) 94 09/06/17 16:00 98.2 82 17 112/72 (85) 99 09/06/17 13:45 97.8 78 18 144/86 (105) 100 09/06/17 09:41 74 I/O 09/06/17 09/06/17 09/06/17 09/07/17 09/07/17 09/07/17 07:00 15:00 23:00 07:00 15:00 23:00 Intake Total 262.5 ml 200 ml 890 ml 515 ml Output Total 350 ml 225 ml Balance -87.5 ml 200 ml 665 ml 515 ml Intake Oral 0 ml 375 ml IV Total 262.5 ml 515 ml 515 ml Other 200 ml Output Urine Total 350 ml 225 ml # Voids 1 2 # Bowel Movements 1 1 Result Diagram: 09/05/17 0647 09/07/17 0711 Imaging Last Impressions Head CT 09/02/172232 Signed Impressions: Service Date/Time: Sunday, September 03, 2017 00:11 - CONCLUSION: No acute intracranial findings Sathya Rachel MD Chest X-Ray 09/02/172232 Signed Impressions: Service Date/Time: Saturday, September 02, 2017 22:46 - CONCLUSION: No acute disease. Sathya Rachel MD Abdomen/Pelvis CT 09/02/17 0000 Signed Impressions: Service Date/Time: Sunday, September 03, 2017 00:14 - CONCLUSION: No acute CT findings in the abdomen or pelvis. Sathya Rachel MD Objective Remarks awake and alert, anicteric no oral thrush no nuchal rigidity lungs- no rales regular rhythm abdomen soft, good bowel sounds extremities no edema, good peripheral pulses Procedures 09/04 EGD w/ biopsy 09/06 colonoscopy 1. Moderate diverticulosis was noted in the sigmoid colon 2. Retroflexed views revealed internal hemorrhoids 3. Retroflexed views revealed medium internal hemorrhoids 4. Revealed external hemorrhoids A/P Problem List: (1) Alcohol withdrawal ICD Code: F10.239 - Alcohol dependence with withdrawal, unspecified (2) Elevated LFTs ICD Code: R79.89 - Other specified abnormal findings of blood chemistry (3) DM (diabetes mellitus) ICD Code: E11.9 - Type 2 diabetes mellitus without complications Assessment and Plan 67 years old male Alcohol Abuse: w/ Acute Alcohol Withdrawal, +tremor, +tachycardia/palpitations , drinks 1gallon Vodka every few days, last drink yesterday, Alcohol negative. CIWA, Seizure Precautions, MVT/Thiamine/Folate replacement. on Librium 10 mg tid- gradual taper to bid no signs Gram positive bacteremia- growing S. epidermidis final s pending repeat blood cultures. - so far no growth started Vancomycin 09/04. . ID ff CXR negative check ECHo= pending S/P EGD- Esophagitis Macrocytic anemia S/P colonoscopy- internal hemorrhoids -check B12, folate level= normal PPI. advised- no NSAIds UTI- started on Bactrim - asymptomatic- DC today- s/p 3 days Alcoholic hepatitis - Elevated LFTs: admits to alcohol abuse. ff LFT trend- down trend US of abdomen - unremarkable DM: Sliding scale w/ Accu-Cheks. trending down - per patient on Lantus and Humalog- liklely non compliant A1C 7.6 Dietitian consult. diabetes reinforcement/teaching patient complains of poor po appetite- d/w him that due to alcoholism - poor po started levemer 8 units hs- good readings patient state relative hypoglycemic reactions with BS less than 100 History of CAD/CMP- not in clinical failure on coreg/digoxin/Amlodipine as OP started on coreg 25 mg po bid continue on digoxin restart Lisnorpil at 20 mg daily Deocnditioning- PT consult- feeling stronger DVT Prophylaxis: SCD/Teds Social work for d/c planning as needed. if continues to improve and repeat cultures negatie- DC on po antiboitcs- will d /w ID Ramón Crespo MD September 07, 2017 09:01
[2017-09-07] MEDS ORDERED: POTASSIUM CHLORIDE 10 MEQ CONTROLLED RELEASE TAB PO ONE (09:15)
[2017-09-07] MEDS: CARVEDILOL 12.5 MG TAB PO SCH ×2 (09:52→20:45)
[2017-09-07] MEDS: INSULIN ASPART SUPPLEMENTAL SCALE SQ SCH ×4 (09:52→20:53)
[2017-09-07] MEDS: THIAMINE HCL 100 MG TAB PO SCH (09:52)
[2017-09-07] MEDS: FOLIC ACID 1 MG TAB PO SCH (09:53)
[2017-09-07] MEDS: SODIUM CHLORIDE 0.9% FLUSH 10 ML FLUSH IV FLUSH SCH ×2 (09:53→21:10)
[2017-09-07] MEDS: MULTIVITAMINS/MINERALS THERAPEUTIC TAB PO SCH (09:55)
[2017-09-07] MEDS: DIGOXIN 0.25 MG TAB PO SCH (09:55)
[2017-09-07] MEDS: LISINOPRIL 20 MG TAB PO SCH (09:55)
[2017-09-07] MEDS: ESCITALOPRAM OXALATE 10 MG TAB PO SCH (09:55)
[2017-09-07] MEDS: DOCUSATE SODIUM 50 MG/SENNA 8.6 MG TAB PO SCH (09:56)
[2017-09-07 12:00] VITALS: BP 125/73; PULSE 69; RESP 19; TEMP 98.4; O2SAT 99
--- NOTE | 2017-09-07 13:36 | HHI.GIFU ---
Subjective Remarks Pt resting in bed, watching TV States diarrhea seems to be improving Denies any nausea, vomiting Tolerating PO Denies abdominal pain (Juanita Tucker) Objective Vitals I&O Vital Signs Date Time Temp Pulse Resp B/P (MAP) Pulse Ox O2 Delivery O2 Flow Rate FiO2 09/07/17 12:00 98.4 69 19 125/73 (90) 99 09/07/17 08:00 98.2 76 20 150/79 (102) 96 09/07/17 00:00 98.3 84 18 122/66 (84) 96 09/06/17 20:00 97.9 84 18 119/68 (85) 94 09/06/17 16:00 98.2 82 17 112/72 (85) 99 09/06/17 13:45 97.8 78 18 144/86 (105) 100 I/O 09/06/17 09/06/17 09/06/17 09/07/17 09/07/17 09/07/17 07:00 15:00 23:00 07:00 15:00 23:00 Intake Total 262.5 ml 200 ml 890 ml 515 ml Output Total 350 ml 225 ml Balance -87.5 ml 200 ml 665 ml 515 ml Intake Oral 0 ml 375 ml IV Total 262.5 ml 515 ml 515 ml Other 200 ml Output Urine Total 350 ml 225 ml # Voids 1 2 # Bowel Movements 1 1 Laboratory Laboratory Tests Test 09/07/17 07:11 Blood Urea Nitrogen 5 Creatinine 0.94 Random Glucose 155 Calcium Level 7.9 Sodium Level 141 Potassium Level 3.1 Chloride Level 110 Carbon Dioxide Level 24.0 Anion Gap 7 Estimat Glomerular Filtration Rate 97 Date/Time Source Procedure Growth Status 09/04/17 11:53 Blood Peripheral Aerobic Blood Culture - Preliminary NO GROWTH IN 3 DAYS Resulted 09/04/17 11:53 Blood Peripheral Anaerobic Blood Culture - Preliminary NO GROWTH IN 3 DAYS Resulted Imaging Last Impressions Head CT 09/02/172232 Signed Impressions: Service Date/Time: Sunday, September 03, 2017 00:11 - CONCLUSION: No acute intracranial findings Sathya Rachel MD Chest X-Ray 09/02/172232 Signed Impressions: Service Date/Time: Saturday, September 02, 2017 22:46 - CONCLUSION: No acute disease. Sathya Rachel MD Abdomen/Pelvis CT 09/02/17 0000 Signed Impressions: Service Date/Time: Sunday, September 03, 2017 00:14 - CONCLUSION: No acute CT findings in the abdomen or pelvis. Sathya Rachel MD Physical Exam HEENT: Normocephalic; atraumatic CHEST: Even/unlabored CARDIAC: RRR ABDOMEN: Soft, nondistended, mild diffuse tenderness; bowel sounds active EXTREMITIES: No clubbing, cyanosis, or edema. SKIN: Normal; no rash; no jaundice. JOB ORDER CLERK: No focal deficits; alert and oriented times three. (Juanita Tucker LAP HAND TOOL) Assessment and Plan Plan Assessment: - Projectile vomiting- reports of nausea and vomiting for the past 3-4 weeks with some episodes of hematemesis preceded by extreme retching. Associated epigastric pain, acid reflux, and heartburn. CT abdomen and pelvis W IV contrast (09/03) --> No acute findings. Liver: Severely diminished hepatic attenuation likely reflecting steatosis. No focal mass. No biliary ductal dilatation. - ETOH abuse- reports drinking 1 gallon of vodka a week for multiple years- denies previous diagnosis of liver issues. - Transaminitis likely secondary to ETOH DF- 4 no indication for steroids LFTs currently: AST-307 ALT-112 T bili-3.9 Alk phos-285 No thrombocytopenia, coagulopathy. Mild hypoalbuminemia - Diarrhea- reports of diarrhea for the past 3-4 weeks with some episodes of hematochezia. Associated fecal urgency and incontinence. Family history of colon cancer. Has never had EGD or colonoscopy. - Weight loss- unsure of how much over what period of time. Family history significant for colon cancer, father. (09/05) EGD --> Class A esophagitis, erythematous gastritis, duodenal inflammation in the bulb and second portion of the duodenum. Pathology (duodenal bulb) without significant histologic abnormality (stomach, antrum) minimally active chronic gastritis with intestinal metaplasia, no H. Pylori (esophagus, distal) without significant histopathologic abnormality. Pt reports some nausea today, no emesis. Initially colonoscopy was held and only EGD was done because pt would not have tolerated the prep and was unable to get to the bathroom (syncopal episode on the toilet day of initial consult) Now pt seems able to tolerate Mag Citrate prep and he is agreeable to colonoscopy. LFTs trending down, hepatitis panel negative. (09/07) Pt reports diarrhea seems to be improving. Denies any continued nausea or vomiting. Colonoscopy --> Moderate diverticulosis in the sigmoid colon. Internal and external hemorrhoids. LFTs trending down. Plan: Avoid ETOH Control of BGL Fiber supplements GI will sign off, please reconsult as needed Have pt follow up with GI after DC Pt has been seen and examined by myself and Dr. Alexander and this note is written on his behalf (Juanita Tucker) Physician Comments Seen and examined with [facility], doing better. s/p egd/colonoscopy. Gi fu upon dc. Thank you (Elmer Alexander MD) Juanita Tucker September 07, 2017 13:36 Elmer Alexander MD September 07, 2017 14:52
[2017-09-07] MEDS: CALCIUM POLYCARBOPHIL 625 MG TAB PO SCH (15:38)
[2017-09-07 16:00] VITALS: BP 119/64; PULSE 79; RESP 19; TEMP 98.8; O2SAT 94
--- NOTE | 2017-09-07 19:08 | ECHRPT ---
Indication: vegetation CONCLUSIONS The pulmonary valve is not well visualized. The inferior vena cava was not well visualized. The transthoracic study is normal by two-dimensional, color flow imaging and Doppler interrogation. normal lv size, wall thickness, EF @ 55% BP: / HR: Rhythm: MEASUREMENTS (Male / Female) Normal Values Technical Quality: 2D ECHO LV Diastolic Diameter PLAX 5.0 cm 4.2 - 5.9 / 3.9 - 5.3 cm LV Systolic Diameter PLAX 3.5 cm IVS Diastolic Thickness 1.1 cm 0.6 - 1.0 / 0.6 - 0.9 cm LVPW Diastolic Thickness 1.1 cm 0.6 - 1.0 / 0.6 - 0.9 cm LV Relative Wall Thickness 0.4 RV Internal Dim ED PLAX 2.8 cm M-MODE Aortic Root Diameter MM 3.4 cm LA Systolic Diameter MM 3.9 cm LA Ao Ratio MM 1.1 AV Cusp Separation MM 1.9 cm FINDINGS LEFT VENTRICLE Normal left ventricular size and wall thickness. The left ventricular systolic function is normal wi th an estimated ejection fraction in the range of 60-65%. Left ventricular diastolic function parameters a re normal. RIGHT VENTRICLE Normal right ventricular size and systolic function. LEFT ATRIUM The left atrial size is normal. RIGHT ATRIUM The right atrial size is normal. ATRIAL SEPTUM Normal atrial septal thickness without atrial level shunting by limited color doppler interrogation. AORTA The aortic root and proximal ascending aorta are normal in size on limited imaging. MITRAL VALVE Structurally normal mitral valve. No mitral valve stenosis or regurgitation. AORTIC VALVE Trileaflet aortic valve. No aortic valve stenosis or regurgitation. TRICUSPID VALVE Structurally normal tricuspid valve. No tricuspid valve stenosis or regurgitation. PULMONARY VALVE The pulmonary valve is not well visualized. VESSELS The inferior vena cava was not well visualized. PERICARDIUM No pericardial effusion. Lance Kerns MD, FACC, FSCAI (Electronically Signed) Final Date:07 Sep 2017 19:07
[2017-09-07 20:00] VITALS: BP 124/59; PULSE 84; RESP 17; TEMP 97.4; O2SAT 97
[2017-09-07] MEDS: ATORVASTATIN 40 MG TAB PO SCH (20:45)
[2017-09-07] MEDS: INSULIN DETEMIR 100 UNITS/ML VIAL SQ SCH (20:52)
[2017-09-07] MEDS ORDERED: POTASSIUM CHLORIDE 20 MEQ CONTROLLED RELEASE TAB PO ONE (21:00)
[2017-09-08] VITALS (8 sets, daily range): BP systolic 114–133; BP diastolic 69–84; PULSE 76–86; RESP 17–19; TEMP 97.4–99.2; O2SAT 96–98
[2017-09-08] MEDS ORDERED: PHARMACY ORDERED LAB ONE (02:45)
[2017-09-08] MEDS: VANCOMYCIN INJ 1,500 MG in SODIUM CHLORID 0.9% 500 ML INJ 500 ML IV SCH (03:43)
[2017-09-08 04:35] LABS: BICARBONATE 23.1 MEQ/L (21.0-32.0); CREATININE 1.21 MG/DL (0.60-1.30)
[2017-09-08] MEDS: INSULIN ASPART SUPPLEMENTAL SCALE SQ SCH ×4 (07:40→21:00)
[2017-09-08] MEDS ORDERED: POTASSIUM CHLORIDE 20 MEQ CONTROLLED RELEASE TAB PO ONE (07:45)
[2017-09-08] MEDS: CALCIUM POLYCARBOPHIL 625 MG TAB PO SCH (08:31)
[2017-09-08] MEDS: ESCITALOPRAM OXALATE 10 MG TAB PO SCH (08:32)
[2017-09-08] MEDS: CARVEDILOL 12.5 MG TAB PO SCH ×2 (08:32→20:53)
[2017-09-08] MEDS: DIGOXIN 0.25 MG TAB PO SCH (08:32)
[2017-09-08] MEDS: THIAMINE HCL 100 MG TAB PO SCH (08:32)
[2017-09-08] MEDS: SODIUM CHLORIDE 0.9% FLUSH 10 ML FLUSH IV FLUSH SCH ×2 (08:33→20:53)
[2017-09-08] MEDS: LISINOPRIL 20 MG TAB PO SCH (09:00)
--- NOTE | 2017-09-08 09:23 | HHI.PR ---
Subjective Remarks "eating everything", no nausea or vomiting, no abdominal pain sttols "loose" non bloody no fever complainsed of knee discomfort "arthritis" Objective Vitals Vital Signs Date Time Temp Pulse Resp B/P (MAP) Pulse Ox O2 Delivery O2 Flow Rate FiO2 09/08/17 08:00 98.4 76 18 126/70 (88) 97 09/08/17 04:00 98.8 77 17 114/71 (85) 98 09/08/17 00:00 99.2 82 17 117/75 (89) 96 09/07/17 20:00 97.4 84 17 124/59 (80) 97 09/07/17 16:00 98.8 79 19 119/64 (82) 94 09/07/17 12:00 98.4 69 19 125/73 (90) 99 I/O 09/07/17 09/07/17 09/07/17 09/08/17 09/08/17 09/08/17 07:00 15:00 23:00 07:00 15:00 23:00 Intake Total 515 ml 1355 ml 740 ml Output Total 800 ml 300 ml Balance 515 ml 555 ml 440 ml Intake Oral 840 ml 240 ml IV Total 515 ml 515 ml 500 ml Output Urine Total 800 ml 300 ml Result Diagram: 09/05/17 0647 09/08/17 0342 Imaging Last Impressions Head CT 09/02/172232 Signed Impressions: Service Date/Time: Sunday, September 03, 2017 00:11 - CONCLUSION: No acute intracranial findings Sathya Rachel MD Chest X-Ray 09/02/172232 Signed Impressions: Service Date/Time: Saturday, September 02, 2017 22:46 - CONCLUSION: No acute disease. Sathya Rachel MD Abdomen/Pelvis CT 09/02/17 0000 Signed Impressions: Service Date/Time: Sunday, September 03, 2017 00:14 - CONCLUSION: No acute CT findings in the abdomen or pelvis. Sathya Rachel MD Objective Remarks awake and alert, anicteric no oral thrush no nuchal rigidity lungs- no rales regular rhythm abdomen soft, good bowel sounds extremities no edema, good peripheral pulses, both knees- good range of motion, no swelling, no erythema, no effusion good peripheral pulses Procedures 09/04 EGD w/ biopsy 09/06 colonoscopy 1. Moderate diverticulosis was noted in the sigmoid colon 2. Retroflexed views revealed internal hemorrhoids 3. Retroflexed views revealed medium internal hemorrhoids 4. Revealed external hemorrhoids A/P Problem List: (1) Alcohol withdrawal ICD Code: F10.239 - Alcohol dependence with withdrawal, unspecified (2) Elevated LFTs ICD Code: R79.89 - Other specified abnormal findings of blood chemistry (3) DM (diabetes mellitus) ICD Code: E11.9 - Type 2 diabetes mellitus without complications Assessment and Plan 67 years old male Alcohol Abuse: w/ Acute Alcohol Withdrawal, +tremor, +tachycardia/palpitations , drinks 1gallon Vodka every few days, last drink yesterday, Alcohol negative. CIWA, Seizure Precautions, MVT/Thiamine/Folate replacement. on Librium 10 mg tid- gradual taper to bid - no signs of DTs S. epidermidis bacteremia- repeat blood cultures. - so far no growth started Vancomycin 09/04. . ID ff CXR negative ECHo- good EF, no vegetation S/P EGD- Esophagitis Macrocytic anemia S/P colonoscopy- internal hemorrhoids B12, folate level= normal PPI. advised- no NSAIds UTI- started on Bactrim - asymptomatic- s/p 3 days Alcoholic hepatitis - Elevated LFTs: admits to alcohol abuse. ff LFT trend- down trend US of abdomen - unremarkable DM: Sliding scale w/ Accu-Cheks. trending down - per patient on Lantus and Humalog- liklely non compliant A1C 7.6 Dietitian consult. diabetes reinforcement/teaching patient complains of poor po appetite- d/w him that due to alcoholism - poor po started levemer 8 units hs- good readings patient state relative hypoglycemic reactions with BS less than 100 History of CAD/CMP- not in clinical failure on coreg/digoxin/Amlodipine as OP started on coreg 25 mg po bid continue on digoxin restart Lisnorpil at 20 mg daily 09/07- ff creatinine and K level Echo done with good EF will not restart his lasix of 40 mg from home- caution Hypokalemia=- replace po creatinine slightly up- gentle IVF History of hyperthyroidism restart on his Methimazole at 5 mg daily. (at home was on 10 mg ) TSH 6,4 Deocnditioning- PT consult- feeling stronger DVT Prophylaxis: SCD/Teds Social work for d/c planning as needed. if continues to improve and repeat cultures negative- DC on po antiboitcs- will d/w ID Ramón Crespo MD September 08, 2017 09:23
[2017-09-08] MEDS ORDERED: MAGNESIUM OXIDE 400 MG TAB PO SCH (09:30)
[2017-09-08] MEDS: NS + KCL 20 MEQ INJ 1,000 ML IV SCH ×2 (09:32→20:59)
--- NOTE | 2017-09-08 18:25 | HHI.IDPN ---
Subjective Subjective Remarks 2 D echo negative BC 08/02 Staph epi burrell S no c/o no fever repeat BCx negative Antibiotics vanco Allergies: Coded Allergies: No Known Allergies (Unverified , 09/02/17) Objective . Vital Signs Date Time Temp Pulse Resp B/P (MAP) Pulse Ox O2 Delivery O2 Flow Rate FiO2 09/08/17 16:00 97.4 86 18 120/84 (96) 96 09/08/17 14:00 98.4 83 19 124/70 (88) 98 09/08/17 08:00 98.4 76 18 126/70 (88) 97 09/08/17 04:00 98.8 77 17 114/71 (85) 98 09/08/17 00:00 99.2 82 17 117/75 (89) 96 09/07/17 20:00 97.4 84 17 124/59 (80) 97 09/08/17 09/08/17 09/09/17 15:00 23:00 07:00 Intake Total 840 ml Output Total 1000 ml Balance -160 ml Intake Oral 840 ml Output Urine Total 1000 ml # Bowel Movements 4 . Laboratory Tests Test 09/07/17 07:11 09/08/17 03:42 09/08/17 10:02 Blood Urea Nitrogen 5 MG/DL 5 MG/DL Creatinine 0.94 MG/DL 1.21 MG/DL Random Glucose 155 MG/DL 68 MG/DL Calcium Level 7.9 MG/DL 8.0 MG/DL Sodium Level 141 MEQ/L 143 MEQ/L Potassium Level 3.1 MEQ/L 3.3 MEQ/L Chloride Level 110 MEQ/L 112 MEQ/L Carbon Dioxide Level 24.0 MEQ/L 23.1 MEQ/L Anion Gap 7 MEQ/L 8 MEQ/L Estimat Glomerular Filtration Rate 97 ML/MIN 73 ML/MIN Magnesium Level 1.7 MG/DL Imaging Last Impressions Head CT 09/02/172232 Signed Impressions: Service Date/Time: Sunday, September 03, 2017 00:11 - CONCLUSION: No acute intracranial findings Sathya Rachel MD Chest X-Ray 09/02/172232 Signed Impressions: Service Date/Time: Saturday, September 02, 2017 22:46 - CONCLUSION: No acute disease. Sathya Rachel MD Abdomen/Pelvis CT 09/02/17 0000 Signed Impressions: Service Date/Time: Sunday, September 03, 2017 00:14 - CONCLUSION: No acute CT findings in the abdomen or pelvis. Sathya Rachel MD Physical Exam CONSTITUTIONAL/GENERAL: This is an adequately nourished patient, in no apparent distress. TUBES/LINES/DRAINS: SKIN: No jaundice, rashes, or lesions. Skin temperature appropriate. Not diaphoretic. CARDIOVASCULAR: Regular rate and rhythm without murmurs, gallops, or rubs. No JVD. Peripheral pulses symmetric. RESPIRATORY/CHEST: Symmetric, unlabored respirations. Clear to auscultation. Breath sounds equal bilaterally. No wheezes, rales, or rhonchi. GASTROINTESTINAL: Abdomen soft, non-tender, nondistended. No hepato-splenomegaly , or palpable masses. No guarding. Bowel sounds present. MUSCULOSKELETAL: Extremities without clubbing, cyanosis, or edema. No joint tenderness or effusion noted. No calf tenderness. No mottling or clubbing. NEUROLOGICAL: Awake and alert. Motor and sensory grossly within normal limits. Follows commands. Clear speech. Moves all extremities. PSYCHIATRIC: No obvious anxiety/depression. no apparent hallucinations or other psychotic thought process. Assessment & Plan Remarks High grade Staph epi bacteremia - S to CFTX - neg 2 D echo - neg repeat BC - No risk factors for coag neg staph bacteremia (e.i. prosthetic endovascular devices or lines) Chronic alcoholism Here for w/u of weight loss dc vanco CFTX cont abx x 10 days Edith Kerns MD September 08, 2017 18:25
[2017-09-08] MEDS: cefTRIAXone INJ 2,000 MG in SODIUM CHLORIDE 0.9% INJ 100 ML IV SCH (20:53)
[2017-09-08] MEDS: ATORVASTATIN 40 MG TAB PO SCH (20:53)
[2017-09-08] MEDS: INSULIN DETEMIR 100 UNITS/ML VIAL SQ SCH (20:58)
[2017-09-09] VITALS: BP 126/64; PULSE 71; RESP 17; TEMP 98; O2SAT 96
[2017-09-09 04:00] VITALS: BP 115/68; PULSE 80; RESP 18; TEMP 97.7; O2SAT 99
[2017-09-09 05:11] LABS: BICARBONATE 23.6 MEQ/L (21.0-32.0); CALCIUM 8.1 MG/DL (8.5-10.1); CREATININE 1.31 MG/DL (0.60-1.30); MAGNESIUM 1.7 MG/DL (1.5-2.5)
[2017-09-09 05:21] LABS: FREE T3 1.39 PG/ML (2.18-3.98); FREE T4 1.35 NG/DL (0.76-1.46); RANDOM VANCOMYCIN 27.6 COMMENT
[2017-09-09] MEDS: NS + KCL 20 MEQ INJ 1,000 ML IV SCH ×2 (05:43→21:34)
[2017-09-09 08:00] VITALS: BP 142/82; PULSE 78; PULSE 79; RESP 18; TEMP 98.1; O2SAT 96
[2017-09-09] MEDS: DIGOXIN 0.25 MG TAB PO SCH (09:10)
[2017-09-09] MEDS: CALCIUM POLYCARBOPHIL 625 MG TAB PO SCH (09:10)
[2017-09-09] MEDS: ESCITALOPRAM OXALATE 10 MG TAB PO SCH (09:10)
[2017-09-09] MEDS: THIAMINE HCL 100 MG TAB PO SCH (09:10)
[2017-09-09] MEDS: LISINOPRIL 20 MG TAB PO SCH (09:10)
[2017-09-09] MEDS: METHIMAZOLE 5 MG TAB PO SCH (09:10)
[2017-09-09] MEDS: CARVEDILOL 12.5 MG TAB PO SCH ×2 (09:11→20:59)
[2017-09-09] MEDS: SODIUM CHLORIDE 0.9% FLUSH 10 ML FLUSH IV FLUSH SCH ×2 (09:15→20:56)
[2017-09-09] MEDS: INSULIN ASPART SUPPLEMENTAL SCALE SQ SCH ×4 (09:20→21:00)
[2017-09-09] MEDS: MAGNESIUM OXIDE 400 MG TAB PO SCH (09:22)
[2017-09-09] MEDS ORDERED: POTASSIUM CHLORIDE 10 MEQ CONTROLLED RELEASE TAB PO ONE (09:45)
--- NOTE | 2017-09-09 10:00 | HHI.PR ---
Subjective Remarks since last evening- loose watery stools after eating no nasuea or vomitng , no pain Objective Vitals Vital Signs Date Time Temp Pulse Resp B/P (MAP) Pulse Ox O2 Delivery O2 Flow Rate FiO2 09/09/17 08:00 98.1 78 18 142/82 (102) 96 09/09/17 04:00 97.7 80 18 115/68 (84) 99 09/09/17 00:00 98.0 71 17 126/64 (84) 96 09/08/17 23:30 78 09/08/17 20:00 98.7 77 17 133/69 (90) 96 09/08/17 19:56 82 09/08/17 16:00 97.4 86 18 120/84 (96) 96 09/08/17 14:00 98.4 83 19 124/70 (88) 98 I/O 09/08/17 09/08/17 09/08/17 09/09/17 09/09/17 09/09/17 07:00 15:00 23:00 07:00 15:00 23:00 Intake Total 740 ml 1340 ml 588 ml Output Total 300 ml 1000 ml 400 ml Balance 440 ml 340 ml 188 ml Intake Oral 240 ml 840 ml 240 ml IV Total 500 ml 500 ml 348 ml Output Urine Total 300 ml 1000 ml 400 ml # Voids 2 # Bowel Movements 4 1 Result Diagram: 09/05/17 0647 09/09/17 0310 Imaging Last Impressions Head CT 09/02/172232 Signed Impressions: Service Date/Time: Sunday, September 03, 2017 00:11 - CONCLUSION: No acute intracranial findings Sathya Rachel MD Chest X-Ray 09/02/172232 Signed Impressions: Service Date/Time: Saturday, September 02, 2017 22:46 - CONCLUSION: No acute disease. Sathya Rachel MD Abdomen/Pelvis CT 09/02/17 0000 Signed Impressions: Service Date/Time: Sunday, September 03, 2017 00:14 - CONCLUSION: No acute CT findings in the abdomen or pelvis. Sathya Rachel MD Objective Remarks awake and alert, anicteric no oral thrush no nuchal rigidity lungs- no rales regular rhythm abdomen soft, good bowel sounds extremities no edema gait steady good peripheral pulses Procedures 09/04 EGD w/ biopsy 09/06 colonoscopy 1. Moderate diverticulosis was noted in the sigmoid colon 2. Retroflexed views revealed internal hemorrhoids 3. Retroflexed views revealed medium internal hemorrhoids 4. Revealed external hemorrhoids A/P Problem List: (1) Alcohol withdrawal ICD Code: F10.239 - Alcohol dependence with withdrawal, unspecified (2) Elevated LFTs ICD Code: R79.89 - Other specified abnormal findings of blood chemistry (3) DM (diabetes mellitus) ICD Code: E11.9 - Type 2 diabetes mellitus without complications Assessment and Plan 67 years old male Alcohol Abuse- no DTs. DC Librium course today S. epidermidis bacteremia- repeat blood cultures. - so far no growth started Vancomycin 09/04. . ID ff changed to Rocephin 09/08 CXR negative ECHo- good EF, no vegetation S/P EGD- Esophagitis Macrocytic anemia S/P colonoscopy- internal hemorrhoids B12, folate level= normal PPI. no NSAIds Diarrhea- new onset check C diff. UTI- started on Bactrim - asymptomatic- s/p 3 days Alcoholic hepatitis - Elevated LFTs: admits to alcohol abuse. ff LFT trend- down trend US of abdomen - unremarkable DM: Sliding scale w/ Accu-Cheks. trending down - per patient on Lantus and Humalog- liklely non compliant A1C 7.6 Dietitian consult. diabetes reinforcement/teaching patient complains of poor po appetite- d/w him that due to alcoholism - poor po started levemer 8 units hs- good readings patient state relative hypoglycemic reactions with BS less than 100 History of CAD/CMP- not in clinical failure on coreg/digoxin/Amlodipine/Lisinopril 40 as OP started on coreg 25 mg po bid continue on digoxin restarted Lisinopril at 20 mg daily 09/07- ff creatinine and K level Echo done with good EF will not restart his lasix of 40 mg from home- caution Hypokalemia=- replace po TALON- creatinine up more- non okguric- having loose stool Increase IVF with KCl give po supplement ff BMP- if no improvement- will DC ALANNAH History of hyperthyroidism restart on his Methimazole at 5 mg daily. (at home was on 10 mg ) TSH 6,4 Deocnditioning- PT consult- feeling stronger DVT Prophylaxis: SCD/Teds Social work for d/c planning as needed. if continues to improve and repeat cultures negative- DC on po antiboitcs- will d/w Ramón Pinto MD September 09, 2017 09:59
[2017-09-09 12:00] VITALS: BP 136/79; PULSE 78; RESP 16; TEMP 98.1; O2SAT 98
[2017-09-09 16:00] VITALS: BP 134/88; PULSE 81; RESP 17; TEMP 98.3; O2SAT 97
[2017-09-09 20:00] VITALS: BP 130/73; PULSE 84; PULSE 85; RESP 16; TEMP 97.7; O2SAT 97
[2017-09-09] MEDS: cefTRIAXone INJ 2,000 MG in SODIUM CHLORIDE 0.9% INJ 100 ML IV SCH (20:58)
[2017-09-09] MEDS: ATORVASTATIN 40 MG TAB PO SCH (20:59)
[2017-09-09] MEDS: INSULIN DETEMIR 100 UNITS/ML VIAL SQ SCH (20:59)
[2017-09-10] VITALS (7 sets, daily range): BP systolic 120–145; BP diastolic 66–79; PULSE 70–80; RESP 16–20; TEMP 97.6–98.1; O2SAT 94–98
[2017-09-10 07:46] LABS: CALCIUM 8.5 MG/DL (8.5-10.1); CREATININE 1.54 MG/DL (0.60-1.30)
[2017-09-10] MEDS: INSULIN ASPART SUPPLEMENTAL SCALE SQ SCH ×4 (08:00→21:00)
[2017-09-10] MEDS: SODIUM CHLORIDE 0.9% FLUSH 10 ML FLUSH IV FLUSH SCH ×2 (09:00→21:42)
[2017-09-10] MEDS: MAGNESIUM OXIDE 400 MG TAB PO SCH (09:40)
[2017-09-10] MEDS: LISINOPRIL 20 MG TAB PO SCH (09:40)
[2017-09-10] MEDS: DIGOXIN 0.25 MG TAB PO SCH (09:40)
[2017-09-10] MEDS: ESCITALOPRAM OXALATE 10 MG TAB PO SCH (09:41)
[2017-09-10] MEDS: METHIMAZOLE 5 MG TAB PO SCH (09:41)
[2017-09-10] MEDS: CALCIUM POLYCARBOPHIL 625 MG TAB PO SCH (09:41)
[2017-09-10] MEDS: CARVEDILOL 12.5 MG TAB PO SCH ×2 (09:41→21:42)
[2017-09-10] MEDS: NS + KCL 20 MEQ INJ 1,000 ML IV SCH ×2 (09:46→20:59)
--- NOTE | 2017-09-10 10:58 | HHI.PR ---
Subjective Remarks up and ambulating stools - soft liquid- 3x no pain up and ambulating, voiding well per patient Objective Vitals Vital Signs Date Time Temp Pulse Resp B/P (MAP) Pulse Ox O2 Delivery O2 Flow Rate FiO2 09/10/17 09:48 73 09/10/17 08:00 97.6 74 18 145/79 (101) 96 09/10/17 04:00 72 20 132/66 (88) 96 09/10/17 04:00 73 09/10/17 00:00 80 09/09/17 23:04 Room Air 09/09/17 22:07 18 09/09/17 20:00 85 09/09/17 20:00 97.7 84 16 130/73 (92) 97 09/09/17 16:00 98.3 81 17 134/88 (103) 97 09/09/17 12:00 98.1 78 16 136/79 (98) 98 I/O 09/09/17 09/09/17 09/09/17 09/10/17 09/10/17 09/10/17 07:00 15:00 23:00 07:00 15:00 23:00 Intake Total 588 ml 2 ml 2062 ml Output Total 400 ml 700 ml Balance 188 ml 2 ml 1362 ml Intake Oral 240 ml 960 ml IV Total 348 ml 2 ml 1102 ml Output Urine Total 400 ml 700 ml # Voids 2 # Bowel Movements 1 8 Result Diagram: 09/10/17 0533 Imaging Last Impressions Head CT 09/02/172232 Signed Impressions: Service Date/Time: Sunday, September 03, 2017 00:11 - CONCLUSION: No acute intracranial findings Sathya Rachel MD Chest X-Ray 09/02/172232 Signed Impressions: Service Date/Time: Saturday, September 02, 2017 22:46 - CONCLUSION: No acute disease. Sathya Rachel MD Abdomen/Pelvis CT 09/02/17 0000 Signed Impressions: Service Date/Time: Sunday, September 03, 2017 00:14 - CONCLUSION: No acute CT findings in the abdomen or pelvis. Sathya Rachel MD Objective Remarks awake and alert, anicteric no oral thrush no nuchal rigidity lungs- no rales regular rhythm abdomen soft, good bowel sounds extremities no edema gait steady good peripheral pulses Procedures 5/7 EGD w/ biopsy 09/06 colonoscopy 1. Moderate diverticulosis was noted in the sigmoid colon 2. Retroflexed views revealed internal hemorrhoids 3. Retroflexed views revealed medium internal hemorrhoids 4. Revealed external hemorrhoids A/P Problem List: (1) Alcohol withdrawal ICD Code: F10.239 - Alcohol dependence with withdrawal, unspecified (2) Elevated LFTs ICD Code: R79.89 - Other specified abnormal findings of blood chemistry (3) DM (diabetes mellitus) ICD Code: E11.9 - Type 2 diabetes mellitus without complications Assessment and Plan 67 years old male Alcohol Abuse- no DTs. DC Librium course today S. epidermidis bacteremia- repeat blood cultures. - so far no growth started Vancomycin 09/04. . ID ff. changed to Rocephin 09/08 - give total 10 days course of antibitoics CXR negative ECHo- good EF, no vegetation S/P EGD- Esophagitis Macrocytic anemia S/P colonoscopy- internal hemorrhoids B12, folate level= normal PPI. no NSAIds Diarrhea- new onset check C diff. - negative start lactinex bid UTI- started on Bactrim - asymptomatic- s/p 3 days Alcoholic hepatitis - Elevated LFTs: admits to alcohol abuse. ff LFT trend- down trend CT of abdomen - unremarkable DM: Sliding scale w/ Accu-Cheks. trending down - per patient on Lantus and Humalog- liklely non compliant A1C 7.6 Dietitian consult. diabetes reinforcement/teaching patient complains of poor po appetite- d/w him that due to alcoholism - poor po started levemer 8 units hs- good readings patient state relative hypoglycemic reactions with BS less than 100 History of CAD/CMP- not in clinical failure on coreg/digoxin/Amlodipine/Lisinopril 40 as OP started on coreg 25 mg po bid continue on digoxin restarted Lisinopril at 20 mg daily 09/07- ff creatinine and K level Echo done with good EF 5% will not restart his lasix of 40 mg from home- caution Hypokalemia=- replace po TALON- creatinine up more- non oliguric- having loose stool Increase IVF with KCl. 500 cc bolus NS give po supplement ff BMP- if no improvement- will DC ALANNAH BMP in am History of hyperthyroidism restart on his Methimazole at 5 mg daily. (at home was on 10 mg ) TSH 6,4 Deocnditioning- PT consult- feeling stronger DVT Prophylaxis: SCD/Teds Social work for d/c planning as needed. if continues to improve and repeat cultures negative- DC on po antiboitcs- will d/w Ramón Pinto MD September 10, 2017 10:58
[2017-09-10] MEDS ORDERED: SODIUM CHLORID 0.9% 500 ML INJ 500 ML IV ONE (11:00)
[2017-09-10] MEDS: LACTOBACILLUS ACIDOPHILUS TAB PO SCH ×2 (12:43→21:42)
[2017-09-10] MEDS: ONDANSETRON HCL 4 MG/2 ML VIAL IVP PRN ×2 (12:45→21:42)
[2017-09-10] MEDS ORDERED: POTASSIUM CHLORIDE 20 MEQ CONTROLLED RELEASE TAB PO ONE (16:00)
[2017-09-10] MEDS: cefTRIAXone INJ 2,000 MG in SODIUM CHLORIDE 0.9% INJ 100 ML IV SCH (21:41)
[2017-09-10] MEDS: ATORVASTATIN 40 MG TAB PO SCH (21:42)
[2017-09-10] MEDS: INSULIN DETEMIR 100 UNITS/ML VIAL SQ SCH (21:54)
[2017-09-11] VITALS: BP 125/72; PULSE 72; PULSE 75; RESP 19; TEMP 98.7; O2SAT 95
[2017-09-11 04:00] VITALS: BP 125/74; PULSE 74; PULSE 75; RESP 19; TEMP 98.7; O2SAT 92
[2017-09-11] MEDS: NS + KCL 20 MEQ INJ 1,000 ML IV SCH ×2 (05:53→17:52)
[2017-09-11 07:27] LABS: BICARBONATE 22.9 MEQ/L (21.0-32.0); CALCIUM 8.3 MG/DL (8.5-10.1); CREATININE 1.6 MG/DL (0.60-1.30)
[2017-09-11] MEDS ORDERED: POTASSIUM CHLORIDE 10 MEQ CONTROLLED RELEASE TAB PO ONE (07:30)
--- NOTE | 2017-09-11 07:50 | HHI.PR ---
Subjective Remarks still having loose liquid stools- about 6x no nausea or vomiting or pain but afraid to eat as he gets diarrhea- some incontinence implied no chest pain ro shortness of breath up and ambulating voiding well Objective Vitals Vital Signs Date Time Temp Pulse Resp B/P (MAP) Pulse Ox O2 Delivery O2 Flow Rate FiO2 09/11/17 04:00 98.7 74 19 125/74 (91) 92 09/11/17 04:00 75 09/11/17 00:00 98.7 72 19 125/72 (89) 95 09/11/17 00:00 75 09/10/17 20:00 76 09/10/17 20:00 Room Air 09/10/17 20:00 98.1 74 19 120/75 (90) 94 09/10/17 16:00 97.7 70 16 126/74 (91) 98 09/10/17 12:00 97.7 72 17 138/78 (98) 94 09/10/17 09:48 73 09/10/17 08:00 97.6 74 18 145/79 (101) 96 I/O 09/10/17 09/10/17 09/10/17 09/11/17 09/11/17 09/11/17 07:00 15:00 23:00 07:00 15:00 23:00 Intake Total 1560 ml 1000 ml Output Total 1850 ml 1000 ml Balance -290 ml 0 ml Intake Oral 720 ml 240 ml IV Total 840 ml 760 ml Output Urine Total 1850 ml 1000 ml # Bowel Movements 1 0 Result Diagram: 09/11/17 0540 Imaging Last Impressions Head CT 09/02/172232 Signed Impressions: Service Date/Time: Sunday, September 03, 2017 00:11 - CONCLUSION: No acute intracranial findings Sathya Rachel MD Chest X-Ray 09/02/172232 Signed Impressions: Service Date/Time: Saturday, September 02, 2017 22:46 - CONCLUSION: No acute disease. Sathya Rachel MD Abdomen/Pelvis CT 09/02/17 0000 Signed Impressions: Service Date/Time: Sunday, September 03, 2017 00:14 - CONCLUSION: No acute CT findings in the abdomen or pelvis. Sathya Rachel MD Objective Remarks awake and alert, anicteric no oral thrush no nuchal rigidity lungs- no rales regular rhythm abdomen soft, good bowel sounds extremities no edema gait steady good peripheral pulses Procedures 09/04 EGD w/ biopsy 09/06 colonoscopy 1. Moderate diverticulosis was noted in the sigmoid colon 2. Retroflexed views revealed internal hemorrhoids 3. Retroflexed views revealed medium internal hemorrhoids 4. Revealed external hemorrhoids A/P Problem List: (1) Alcohol withdrawal ICD Code: F10.239 - Alcohol dependence with withdrawal, unspecified (2) Elevated LFTs ICD Code: R79.89 - Other specified abnormal findings of blood chemistry (3) DM (diabetes mellitus) ICD Code: E11.9 - Type 2 diabetes mellitus without complications Assessment and Plan 67 years old male Alcohol Abuse- no DTs. S/P Librium course S. epidermidis bacteremia- repeat blood cultures. - so far no growth started Vancomycin 09/04. . ID ff. changed to Rocephin 09/08 - give total 10 days course of antibitoics CXR negative ECHo- good EF, no vegetation S/P EGD- Esophagitis Macrocytic anemia S/P colonoscopy- internal hemorrhoids B12, folate level= normal PPI. no NSAIds Diarrhea- persistent C diff. - negative started lactinex bid 09/10 colonsocpy negative trial of Imodium 2 caps now will reconsult GI UTI- s/p received 3 days Bactrim - asymptomatic- Alcoholic hepatitis - Elevated LFTs: admits to alcohol abuse. ff LFT trend- down trend CT of abdomen - unremarkable DM: Sliding scale w/ Accu-Cheks. trending down - per patient on Lantus and Humalog- liklely non compliant A1C 7.6 Dietitian consult. 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 IVF with KCL TALON- creatinine trending up - non oliguric - due to diarrhea given bolus yesterday Increase IVF with KCl. give po supplement. CT of abdomen- normal renal Ultrasound ff BMP- decrease Lisinopril to 5 mg daily BMP in am- if no improvement- consult nephrology for recommendations History of hyperthyroidism restart on his Methimazole at 5 mg daily. (at home was on 10 mg ) TSH 6,4 Deocnditioning- PT consult- feeling stronger DVT Prophylaxis: SCD/Teds Social work for d/c planning as needed. if continues to improve and repeat cultures negative- DC on po antiboitcs- will d/w ID Ramón Crespo MD September 11, 2017 07:50
[2017-09-11 08:00] VITALS: BP 136/87; PULSE 72; RESP 18; TEMP 97.3; O2SAT 99
[2017-09-11] MEDS ORDERED: LOPERAMIDE HCL 2 MG CAP PO ONE (08:00)
[2017-09-11] MEDS: INSULIN ASPART SUPPLEMENTAL SCALE SQ SCH ×4 (08:00→21:00)
[2017-09-11] MEDS: ESCITALOPRAM OXALATE 10 MG TAB PO SCH (08:30)
[2017-09-11] MEDS: DIGOXIN 0.25 MG TAB PO SCH (08:30)
[2017-09-11] MEDS: METHIMAZOLE 5 MG TAB PO SCH (08:30)
[2017-09-11] MEDS: LACTOBACILLUS ACIDOPHILUS TAB PO SCH ×2 (08:30→21:07)
[2017-09-11] MEDS: CARVEDILOL 12.5 MG TAB PO SCH ×2 (08:30→21:07)
[2017-09-11] MEDS: SODIUM CHLORIDE 0.9% FLUSH 10 ML FLUSH IV FLUSH SCH ×2 (08:31→21:12)
[2017-09-11] MEDS: LISINOPRIL 10 MG TAB PO SCH (08:33)
--- NOTE | 2017-09-11 10:53 | HHI.GIFU ---
Subjective Remarks Pt resting in bed. Said he had diarrhea "all day yesterday" but thought he might be better today as he has only gone once. He threw up this morning. c/o bilat flank pain. (Elba Georges) Objective Vitals I&O Vital Signs Date Time Temp Pulse Resp B/P (MAP) Pulse Ox O2 Delivery O2 Flow Rate FiO2 09/11/17 08:00 97.3 72 18 136/87 (103) 99 09/11/17 04:00 98.7 74 19 125/74 (91) 92 09/11/17 04:00 75 09/11/17 00:00 98.7 72 19 125/72 (89) 95 09/11/17 00:00 75 09/10/17 20:00 76 09/10/17 20:00 Room Air 09/10/17 20:00 98.1 74 19 120/75 (90) 94 09/10/17 16:00 97.7 70 16 126/74 (91) 98 09/10/17 12:00 97.7 72 17 138/78 (98) 94 I/O 09/10/17 09/10/17 09/10/17 09/11/17 09/11/17 09/11/17 07:00 15:00 23:00 07:00 15:00 23:00 Intake Total 1560 ml 1000 ml Output Total 1850 ml 1000 ml Balance -290 ml 0 ml Intake Oral 720 ml 240 ml IV Total 840 ml 760 ml Output Urine Total 1850 ml 1000 ml # Bowel Movements 9 0 Laboratory Laboratory Tests Test 09/11/17 05:40 Blood Urea Nitrogen 6 Creatinine 1.60 Random Glucose 157 Calcium Level 8.3 Sodium Level 145 Potassium Level 3.4 Chloride Level 114 Carbon Dioxide Level 22.9 Anion Gap 8 Estimat Glomerular Filtration Rate 53 Date/Time Source Procedure Growth Status 09/04/17 11:53 Blood Peripheral Aerobic Blood Culture - Final NO GROWTH IN 5 DAYS Complete 09/04/17 11:53 Blood Peripheral Anaerobic Blood Culture - Final NO GROWTH IN 5 DAYS Complete Imaging Last Impressions Head CT 09/02/172232 Signed Impressions: Service Date/Time: Sunday, September 03, 2017 00:11 - CONCLUSION: No acute intracranial findings Sathya Rachel MD Chest X-Ray 5/5/18 2233 Signed Impressions: Service Date/Time: Saturday, September 02, 2017 22:46 - CONCLUSION: No acute disease. Sathya Rachel MD Abdomen/Pelvis CT 09/02/17 0000 Signed Impressions: Service Date/Time: Sunday, September 03, 2017 00:14 - CONCLUSION: No acute CT findings in the abdomen or pelvis. Sathya Rachel MD Physical Exam HEENT: Normocephalic; atraumatic CHEST: Even/unlabored CARDIAC: RRR ABDOMEN: Soft, nondistended, diffuse tenderness; bowel sounds active EXTREMITIES: No clubbing, cyanosis, or edema. SKIN: Normal; no rash; no jaundice. 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 (Elba Georges [facility]) Assessment and Plan Plan Assessment: - Projectile vomiting- reports of nausea and vomiting for the past 3-4 weeks with some episodes of hematemesis preceded by extreme retching. Associated epigastric pain, acid reflux, and heartburn. CT abdomen and pelvis W IV contrast (09/03) --> No acute findings. Liver: Severely diminished hepatic attenuation likely reflecting steatosis. No focal mass. No biliary ductal dilatation. - ETOH abuse- reports drinking 1 gallon of vodka a week for multiple years- denies previous diagnosis of liver issues. - Transaminitis likely secondary to ETOH DF- 4 no indication for steroids LFTs currently: AST-307 ALT-112 T bili-3.9 Alk phos-285 No thrombocytopenia, coagulopathy. Mild hypoalbuminemia - Diarrhea- reports of diarrhea for the past 3-4 weeks with some episodes of hematochezia. Associated fecal urgency and incontinence. Family history of colon cancer. Has never had EGD or colonoscopy. - Weight loss- unsure of how much over what period of time. Family history significant for colon cancer, father. (09/05) EGD --> Class A esophagitis, erythematous gastritis, duodenal inflammation in the bulb and second portion of the duodenum. Pathology (duodenal bulb) without significant histologic abnormality (stomach, antrum) minimally active chronic gastritis with intestinal metaplasia, no H. Pylori (esophagus, distal) without significant histopathologic abnormality. Pt reports some nausea today, no emesis. Initially colonoscopy was held and only EGD was done because pt would not have tolerated the prep and was unable to get to the bathroom (syncopal episode on the toilet day of initial consult) Now pt seems able to tolerate Mag Citrate prep and he is agreeable to colonoscopy. LFTs trending down, hepatitis panel negative. (09/07) Pt reports diarrhea seems to be improving. Denies any continued nausea or vomiting. Colonoscopy --> Moderate diverticulosis in the sigmoid colon. Internal and external hemorrhoids. LFTs trending down. 09/11/17 GI reconsulted for diarrhea. Pt had loose stools reportedly 6 times yesterday. So far just 1 bm today. c/o flank pain and n/v x 1 episode this am. + diffuse abd TTP. c diff neg. path from EGD benign. Plan: GERALD stool studies CBC and CMP in am supportive care Pt has been seen and examined by myself and Dr. Leija and myself and this note is on her behalf (Elba Georges) Physician Comments seen, examined agree with above lfts, lipase repeat ct abdomen/pelvis trial of creon with meals and snacks (Kelli Leija MD) Elba Georges September 11, 2017 10:53 Kelli Leija MD September 11, 2017 16:45
[2017-09-11 12:00] VITALS: BP 150/72; PULSE 74; RESP 17; TEMP 97.7; O2SAT 100
[2017-09-11] MEDS: MAGNESIUM OXIDE 400 MG TAB PO SCH (12:07)
[2017-09-11 16:00] VITALS: BP 149/82; PULSE 75; RESP 16; TEMP 98; O2SAT 99
[2017-09-11] MEDS ORDERED: DIATRIZOATE MEGLUM/DIATRIZOATE SOD 9 ML CUP PO ONE (17:30)
[2017-09-11] MEDS: LIPASE/PROTEASE/AMYLASE (24,000/76,000/120,000) CAP PO SCH (18:00)
[2017-09-11 20:00] VITALS: BP 152/62; PULSE 80; RESP 18; TEMP 98.3; O2SAT 98
[2017-09-11] MEDS: ATORVASTATIN 40 MG TAB PO SCH (21:07)
[2017-09-11] MEDS: cefTRIAXone INJ 2,000 MG in SODIUM CHLORIDE 0.9% INJ 100 ML IV SCH (21:07)
[2017-09-11] MEDS: INSULIN DETEMIR 100 UNITS/ML VIAL SQ SCH (21:24)
--- NOTE | 2017-09-11 21:48 | RADRPT ---
EXAM DATE/TIME: 09/11/2017 20:28 [facility] COMPARISON: CT ABDOMEN & PELVIS W CONTRAST, September 03, 2017, 0:14. INDICATIONS : Abdomen pain. ORAL CONTRAST: Patient refused oral contrast. RADIATION DOSE: 7.7 CTDIvol (mGy) MEDICAL HISTORY : Cardiovascular disease. Hypertension. SURGICAL HISTORY : None. ENCOUNTER: Initial ACUITY: 1 day PAIN SCALE: 5/10 LOCATION: Bilateral abdomen TECHNIQUE: Volumetric scanning of the abdomen and pelvis was performed. Using automated exposure control and ad justment of the mA and/or kV according to patient size, radiation dose was kept as low as reasonably achievable to obtain optimal diagnostic quality images. DICOM format image data is available electro nically for review and comparison. FINDINGS: LOWER LUNGS: Tiny bilateral pleural effusions. LIVER: Prominent diffuse hepatic steatosis. No evidence of focal liver mass. No biliary ductal dilatation. SPLEEN: Normal size without lesion. PANCREAS: Atrophic. KIDNEYS: Normal in size and shape. There is no mass, stone, or hydronephrosis. ADRENAL GLANDS: Within normal limits. VASCULAR: There is no aortic aneurysm. BOWEL/MESENTERY: Distal colonic diverticula. No abnormal dilatation, wall thickening or focal inflammatory changes. ABDOMINAL WALL: Within normal limits. RETROPERITONEUM: There is no lymphadenopathy. BLADDER: No wall thickening or mass. REPRODUCTIVE: Within normal limits. INGUINAL: There is no lymphadenopathy or hernia. MUSCULOSKELETAL: Within normal limits for patient age. CONCLUSION: No acute CT findings in the abdomen or pelvis. Interval development of tiny bilateral pleural effusions. Stable diffuse hepatic steatosis. Sathya Rachel MD on September 11, 2017 at 21:37 Board Certified Radiologist. This report was verified electronically.
[2017-09-11 22:44] LABS: ALBUMIN 2.1 GM/DL (3.4-5.0); DIRECT BILIRUBIN ADULT 0.8 MG/DL (0.0-0.2)
[2017-09-11 22:46] LABS: INDIRECT BILIRUBIN 0.4 MG/DL (0.0-0.8); TOTAL BILIRUBIN ADULT 1.2 MG/DL (0.2-1.0); TOTAL PROTEIN 5.7 GM/DL (6.4-8.2)
[2017-09-12] VITALS (8 sets, daily range): BP systolic 104–142; BP diastolic 57–79; PULSE 67–81; RESP 17–18; TEMP 97.5–97.9; O2SAT 96–99
[2017-09-12 04:53] LABS: HEMATOCRIT 28.9 % (39.0-51.0); HEMOGLOBIN 9.5 GM/DL (13.0-17.0); MEAN CELL VOLUME 104.3 FL (80.0-100.0); MEAN CORPUSCULAR HEMOGLOBIN 34.4 PG (27.0-34.0); MEAN PLATELET VOLUME 9.1 FL (7.0-11.0); PLATELET COUNT 200 TH/MM3 (150-450); RED BLOOD COUNT 2.77 MIL/MM3 (4.50-5.90); RED CELL DISTRIBUTION WIDTH 15.8 % (11.6-17.2); WHITE BLOOD COUNT 6.7 TH/MM3 (4.0-11.0)
[2017-09-12 05:25] LABS: ALT (GPT) 72 U/L (12-78); AST (GOT) 187 U/L (15-37); BICARBONATE 24.2 MEQ/L (21.0-32.0); BLOOD UREA NITROGEN 5 MG/DL (7-18); CALCIUM 7.9 MG/DL (8.5-10.1); CHLORIDE 111 MEQ/L (98-107); CREATININE 1.59 MG/DL (0.60-1.30); GLOMERULAR FILTRATION RATE 53 ML/MIN (>89); GLUCOSE,RANDOM 65 MG/DL (74-106); SODIUM (NA) 142 MEQ/L (136-145)
[2017-09-12 05:27] LABS: ALKALINE PHOSPHATASE 215 U/L (45-117); TOTAL PROTEIN 5.5 GM/DL (6.4-8.2)
[2017-09-12] MEDS: NS + KCL 20 MEQ INJ 1,000 ML IV SCH ×3 (06:42→22:59)
[2017-09-12] MEDS: INSULIN ASPART SUPPLEMENTAL SCALE SQ SCH ×4 (08:50→21:00)
[2017-09-12] MEDS: LIPASE/PROTEASE/AMYLASE (24,000/76,000/120,000) CAP PO SCH ×3 (08:54→17:39)
[2017-09-12] MEDS: ESCITALOPRAM OXALATE 10 MG TAB PO SCH (08:55)
[2017-09-12] MEDS: METHIMAZOLE 5 MG TAB PO SCH (08:55)
[2017-09-12] MEDS: LACTOBACILLUS ACIDOPHILUS TAB PO SCH ×2 (08:57→20:49)
[2017-09-12] MEDS: SODIUM CHLORIDE 0.9% FLUSH 10 ML FLUSH IV FLUSH SCH ×2 (08:59→21:00)
[2017-09-12] MEDS: CARVEDILOL 12.5 MG TAB PO SCH ×2 (09:00→20:49)
[2017-09-12] MEDS: DIGOXIN 0.25 MG TAB PO SCH (09:06)
[2017-09-12] MEDS: LISINOPRIL 10 MG TAB PO SCH (09:06)
--- NOTE | 2017-09-12 11:39 | HHI.PR ---
Subjective Remarks Feels tired and weak. Had three BMs so far today and loose. Had some abdominal cramping earlier but gone. No nausea or vomiting. has been ambulating Discussed w RN, pt's BS were in the 50's this morning and she gave him two cups of juice and BS went back up. Objective Vitals Vital Signs Date Time Temp Pulse Resp B/P (MAP) Pulse Ox O2 Delivery O2 Flow Rate FiO2 09/12/17 09:43 73 09/12/17 08:00 97.8 67 18 128/75 (92) 98 09/12/17 08:00 98 Room Air 09/12/17 04:00 97.5 68 18 104/59 (74) 97 09/12/17 00:00 97.8 67 18 105/57 (73) 96 09/11/17 20:00 98.3 80 18 152/62 (92) 98 09/11/17 16:00 98.0 75 16 149/82 (104) 99 09/11/17 12:00 97.7 74 17 150/72 (98) 100 I/O 09/11/17 09/11/17 09/11/17 09/12/17 09/12/17 09/12/17 06:59 14:59 22:59 06:59 14:59 22:59 Intake Total 1000 ml 2220 ml 1220 ml Output Total 1000 ml 500 ml Balance 0 ml 2220 ml 720 ml Intake Oral 240 ml 1220 ml 120 ml IV Total 760 ml 1000 ml 1100 ml Output Urine Total 1000 ml 500 ml # Bowel Movements 0 0 1 Result Diagram: 09/12/17 0320 09/12/17 0320 Imaging Last Impressions Abdomen/Pelvis CT 09/11/17 0000 Signed Impressions: Service Date/Time: Monday, September 11, 2017 20:28 - CONCLUSION: No acute CT findings in the abdomen or pelvis. Interval development of tiny bilateral pleural effusions. Stable diffuse hepatic steatosis. Sathya Rachel MD Head CT 09/02/172232 Signed Impressions: Service Date/Time: Sunday, September 03, 2017 00:11 - CONCLUSION: No acute intracranial findings Sathya Rachel MD Chest X-Ray 09/02/172232 Signed Impressions: Service Date/Time: Saturday, September 02, 2017 22:46 - CONCLUSION: No acute disease. Sathya Rachel MD Objective Remarks awake and alert, appears tired lungs- clear w no wheezing regular rhythm abdomen soft, good bowel sounds extremities no edema Procedures 09/04 EGD w/ biopsy 09/06 colonoscopy 1. Moderate diverticulosis was noted in the sigmoid colon 2. Retroflexed views revealed internal hemorrhoids 3. Retroflexed views revealed medium internal hemorrhoids 4. Revealed external hemorrhoids A/P Problem List: (1) Alcohol withdrawal ICD Code: F10.239 - Alcohol dependence with withdrawal, unspecified (2) Elevated LFTs ICD Code: R79.89 - Other specified abnormal findings of blood chemistry (3) DM (diabetes mellitus) ICD Code: E11.9 - Type 2 diabetes mellitus without complications Assessment and Plan 67 years old male Alcohol Abuse- no DTs. S/P Librium course S. epidermidis bacteremia- repeat blood cultures. - so far no growth started Vancomycin 09/04. . ID following changed to Rocephin 09/08 - give total 10 days course of antibitoics CXR negative ECHo- good EF, no vegetation S/P EGD- Esophagitis Macrocytic anemia S/P colonoscopy- internal hemorrhoids B12, folate level= normal PPI. no NSAIds Diarrhea- persistent C diff. - negative started lactinex bid 09/10 colonsocpy negative trial of Imodium 2 caps now GI has been reconsulted and following. Repeat CT abd/pelvis showed no acute CT findings but does show interval development of tiny bilateral pleural effusions. UTI- s/p received 3 days Bactrim - asymptomatic- Alcoholic hepatitis - Elevated LFTs: admits to alcohol abuse. ff LFT trend- down trend CT of abdomen - unremarkable DM: Sliding scale w/ Accu-Cheks. trending down - per patient on Lantus and Humalog- liklely non compliant A1C 7.6 Dietitian consult. 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 IVF with KCL TALON- creatinine trending up - non oliguric - due to diarrhea s/p bolus and currently on IVF with KCl. normal renal Ultrasound ff BMP- decrease Lisinopril to 5 mg daily consult nephrology for recommendations History of hyperthyroidism restart on his Methimazole at 5 mg daily. (at home was on 10 mg ) TSH 6,4 Deconditioning- PT consult- feeling stronger DVT Prophylaxis: SCD/Teds Discharge Planning Social work for d/c planning as needed. consulted nephrology regarding worsening kidney function. Continue IVFs replaced K monitor BS, dose of levemir has been adjusted. Shruthi Elliott MD September 12, 2017 11:39
[2017-09-12] MEDS: MAGNESIUM OXIDE 400 MG TAB PO SCH (12:04)
[2017-09-12] MEDS ORDERED: POTASSIUM CHLORIDE 20 MEQ CONTROLLED RELEASE TAB PO ONE (13:00)
--- NOTE | 2017-09-12 13:03 | HHI.GIFU ---
Subjective Remarks Resting in bed. diarrhea persists. (Elba Georges) Objective Vitals I&O Vital Signs Date Time Temp Pulse Resp B/P (MAP) Pulse Ox O2 Delivery O2 Flow Rate FiO2 09/12/17 12:00 97.9 70 18 142/79 (100) 98 09/12/17 09:43 73 09/12/17 08:00 97.8 67 18 128/75 (92) 98 09/12/17 08:00 98 Room Air 09/12/17 04:00 97.5 68 18 104/59 (74) 97 09/12/17 00:00 97.8 67 18 105/57 (73) 96 09/11/17 20:00 98.3 80 18 152/62 (92) 98 09/11/17 16:00 98.0 75 16 149/82 (104) 99 I/O 09/11/17 09/11/17 09/11/17 09/12/17 09/12/17 09/12/17 07:00 15:00 23:00 07:00 15:00 23:00 Intake Total 1000 ml 2220 ml 1220 ml Output Total 1000 ml 500 ml Balance 0 ml 2220 ml 720 ml Intake Oral 240 ml 1220 ml 120 ml IV Total 760 ml 1000 ml 1100 ml Output Urine Total 1000 ml 500 ml # Bowel Movements 0 0 1 Laboratory Laboratory Tests Test 09/11/17 21:15 09/12/17 03:20 Total Bilirubin 1.2 1.0 Direct Bilirubin 0.8 Indirect Bilirubin 0.4 Aspartate Amino Transf (AST/SGOT) 175 187 Alanine Aminotransferase (ALT/SGPT) 65 72 Alkaline Phosphatase 207 215 Total Protein 5.7 5.5 Albumin 2.1 2.0 Lipase 27 White Blood Count 6.7 Red Blood Count 2.77 Hemoglobin 9.5 Hematocrit 28.9 Mean Corpuscular Volume 104.3 Mean Corpuscular Hemoglobin 34.4 Mean Corpuscular Hemoglobin Concent 33.0 Red Cell Distribution Width 15.8 Platelet Count 200 Mean Platelet Volume 9.1 Blood Urea Nitrogen 5 Creatinine 1.59 Random Glucose 65 Calcium Level 7.9 Sodium Level 142 Potassium Level 3.3 Chloride Level 111 Carbon Dioxide Level 24.2 Anion Gap 7 Estimat Glomerular Filtration Rate 53 Date/Time Source Procedure Growth Status 09/04/17 11:53 Blood Peripheral Aerobic Blood Culture - Final NO GROWTH IN 5 DAYS Complete 5/7/18 11:53 Blood Peripheral Anaerobic Blood Culture - Final NO GROWTH IN 5 DAYS Complete Imaging Last Impressions Abdomen/Pelvis CT 09/11/17 0000 Signed Impressions: Service Date/Time: Monday, September 11, 2017 20:28 - CONCLUSION: No acute CT findings in the abdomen or pelvis. Interval development of tiny bilateral pleural effusions. Stable diffuse hepatic steatosis. Sathya Rachel MD Head CT 09/02/172232 Signed Impressions: Service Date/Time: Sunday, September 03, 2017 00:11 - CONCLUSION: No acute intracranial findings Sathya Rachel MD Chest X-Ray 09/02/172232 Signed Impressions: Service Date/Time: Saturday, September 02, 2017 22:46 - CONCLUSION: No acute disease. Sathya Rachel MD Physical Exam HEENT: Normocephalic; atraumatic CHEST: Even/unlabored CARDIAC: RRR ABDOMEN: Soft, nondistended, diffuse tenderness; bowel sounds active EXTREMITIES: No clubbing, cyanosis, or edema. SKIN: Normal; no rash; no jaundice. 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 (Elba Georges [facility]) Assessment and Plan Plan Assessment: - Projectile vomiting- reports of nausea and vomiting for the past 3-4 weeks with some episodes of hematemesis preceded by extreme retching. Associated epigastric pain, acid reflux, and heartburn. CT abdomen and pelvis W IV contrast (09/03) --> No acute findings. Liver: Severely diminished hepatic attenuation likely reflecting steatosis. No focal mass. No biliary ductal dilatation. - ETOH abuse- reports drinking 1 gallon of vodka a week for multiple years- denies previous diagnosis of liver issues. - Transaminitis likely secondary to ETOH DF- 4 no indication for steroids LFTs currently: AST-307 ALT-112 T bili-3.9 Alk phos-285 No thrombocytopenia, coagulopathy. Mild hypoalbuminemia - Diarrhea- reports of diarrhea for the past 3-4 weeks with some episodes of hematochezia. Associated fecal urgency and incontinence. Family history of colon cancer. Has never had EGD or colonoscopy. - Weight loss- unsure of how much over what period of time. Family history significant for colon cancer, father. (09/05) EGD --> Class A esophagitis, erythematous gastritis, duodenal inflammation in the bulb and second portion of the duodenum. Pathology (duodenal bulb) without significant histologic abnormality (stomach, antrum) minimally active chronic gastritis with intestinal metaplasia, no H. Pylori (esophagus, distal) without significant histopathologic abnormality. Pt reports some nausea today, no emesis. Initially colonoscopy was held and only EGD was done because pt would not have tolerated the prep and was unable to get to the bathroom (syncopal episode on the toilet day of initial consult) Now pt seems able to tolerate Mag Citrate prep and he is agreeable to colonoscopy. LFTs trending down, hepatitis panel negative. (09/07) Pt reports diarrhea seems to be improving. Denies any continued nausea or vomiting. Colonoscopy --> Moderate diverticulosis in the sigmoid colon. Internal and external hemorrhoids. LFTs trending down. 09/11/17 GI reconsulted for diarrhea. Pt had loose stools reportedly 6 times yesterday. So far just 1 bm today. c/o flank pain and n/v x 1 episode this am. + diffuse abd TTP. c diff neg. path from EGD benign. 09/12/[address] fatty liver, no acute abd findings. tolerating diet. LFTs trending down. lipase 27. Plan: GERALD await stool studies monitor labs supportive care Pt has been seen and examined by myself and Dr. Leija and myself and this note is on her behalf (Elba Georges) Physician Comments agree with above continue creon for now-seems to be working on diarrhea we will monitor for now further investigations based on results (Kelli Leija MD) Elba Georges September 12, 2017 13:03 Kelli Leija MD September 12, 2017 15:25
--- NOTE | 2017-09-12 15:05 | MB ---
cc: Bg Obando MD DATE: 09/12/2017 REASON FOR CONSULTATION: Elevated BUN and creatinine for evaluation. HISTORY OF PRESENT ILLNESS: This is a 67-year-old male with a past medical history of alcoholism, history of hypertension, diabetes mellitus, ischemic heart disease, was admitted because of generalized weakness and alcohol withdrawal. I was called to see the patient because of elevated BUN and creatinine. The patient has creatinine of 1.1 on admission, which decreased to 0.6-0.7 and then it started going up for the last 5 days gradually to 1.2-1.5 now. The patient denies any previous history of renal disease. He has some nausea and decreased appetite and has loose bowel motion. The patient was found to have blood culture positive of Staph epidermidis and he is currently getting ceftriaxone and he was on vancomycin, but it was stopped on 09/08/2017. At that time, his vancomycin trough level was 29. Patient has been following with the GI and he has elevated liver enzymes, mainly because of alcoholism and he had endoscopy which shows that he has gastritis and esophagitis. PAST MEDICAL HISTORY: Hypertension, diabetes mellitus, history of alcoholism, ischemic heart disease. PAST SURGICAL HISTORY: Recently had endoscopy done. REVIEW OF SYSTEMS: The patient is complaining of generalized weakness, feeling tired, has nausea, decreased appetite, occasional abdominal cramping. Has loose bowel motion. There is no history of dysuria, hematuria. According to patient, he has been passing good amount of urine. SOCIAL HISTORY: The patient has history of drinking alcohol. He does drink about 1 gallon of vodka every few days and the last time he drank, when he came to the hospital. There is no history of smoking or taking any other drugs. FAMILY HISTORY: Noncontributory. ALLERGIES: HE HAS NO KNOWN DRUG ALLERGIES. MEDICATIONS: Currently, he is on the following medications: Normal saline at 42 an hour, normal saline with potassium at 100 an hour, carvedilol 25 mg b.i.d., digoxin 0.25 mg daily, Lexapro 10 mg once a day, Tapazole 5 mg once a day, lisinopril 10 mg daily, Levemir 5 units subQ daily, magnesium oxide 400 mg daily, Lipitor 40 mg at bedtime, Lactinex 1 tablet every 12 hours, ceftriaxone 1 gram q. 24 hours, insulin aspart sliding scale, Creon 2 capsules t.i.d., Romazicon injection p.r.n., Zofran p.r.n. PHYSICAL EXAMINATION: GENERAL: Awake, alert. He is not in acute distress. VITAL SIGNS: His last blood pressure is 142/79, temperature is 97.9, oxygen saturations 98% on room air. There is no documented hypotensive episode during this admission. HEENT: Pupils are mid constricted. Nonicteric sclerae. Conjunctivae pale. NECK: Supple. JVD is not elevated. LUNGS: The patient has bilateral good air entry with occasional wheezing. HEART: S1, S2. Regular rhythm. ABDOMEN: Distended, soft, lax. There is no tenderness. Bowel sounds positive. EXTREMITIES: There is no pedal edema. LABORATORY DATA: WBC count 6.7, hemoglobin 9.5, platelet count of 200. Sodium 142, potassium 3.3, chloride 111, bicarbonate 24.2, BUN 5, creatinine 1.59, calcium 7.9. AST is 187, ALT 72, alkaline phosphatase 215, total protein is 5.5, albumin of 2.0. INR is 1.2. Urinalysis showing protein of 30, but this was done on admission. Toxicology screen showing a urine toxicology negative. Ethyl alcohol level was 3 on admission. Highest random vancomycin trough level was 29. Blood culture grew Staph epidermidis, but repeat one is negative. IMAGING STUDY: The patient has CT scan of the abdomen and pelvis done without IV contrast, and this was done on 09/11/2017, and it shows that the patient has no acute intraabdominal finding, mild bilateral pleural effusion. Kidneys are mentioned as normal in size and no mass, stone or hydronephrosis. Chest x-ray was done which shows no acute disease. CT scan of the brain was done on admission without IV contrast and shows no acute intracranial finding. He has a CT scan abdomen and pelvis done with IV contrast on admission. ASSESSMENT AND PLAN: 1. Acute kidney injury. 2. Acute liver disease. 3. History of alcoholism. 4. Hypertension. 5. Diabetes mellitus. The patient has an elevated BUN and creatinine. Differential diagnosis will be ATN, either from the infection or the possibility of vancomycin related toxicity. The patient has been nonoliguric. I will get the urine sodium and osmolality and repeat the urinalysis. Agree with continuing IV fluid and follow the urine output and the BUN and creatinine. Avoid any nephrotoxins. Thank you for the consultation, and I will follow the patient while he is in the hospital. MD ROSS MenaJ/TL , 02:08 PM , 03:04 PM [facility]
[2017-09-12] MEDS: ATORVASTATIN 40 MG TAB PO SCH (20:49)
[2017-09-12] MEDS: cefTRIAXone INJ 2,000 MG in SODIUM CHLORIDE 0.9% INJ 100 ML IV SCH (20:50)
[2017-09-12] MEDS ORDERED: INSULIN DETEMIR 100 UNITS/ML VIAL SQ SCH (21:00)
[2017-09-13] VITALS (8 sets, daily range): BP systolic 106–180; BP diastolic 68–90; PULSE 73–86; RESP 17–19; TEMP 97.2–98.6; O2SAT 98–100
[2017-09-13] MEDS: INSULIN ASPART SUPPLEMENTAL SCALE SQ SCH ×4 (08:00→20:05)
[2017-09-13] MEDS: SODIUM CHLORIDE 0.9% FLUSH 10 ML FLUSH IV FLUSH SCH ×2 (09:00→20:00)
[2017-09-13] MEDS: INSULIN DETEMIR 100 UNITS/ML VIAL SQ SCH (09:00)
[2017-09-13 09:15] LABS: BICARBONATE 21.7 MEQ/L (21.0-32.0); CALCIUM 8.4 MG/DL (8.5-10.1); CREATININE 1.63 MG/DL (0.60-1.30); MAGNESIUM 1.9 MG/DL (1.5-2.5)
[2017-09-13] MEDS: LIPASE/PROTEASE/AMYLASE (24,000/76,000/120,000) CAP PO SCH ×3 (09:28→17:26)
[2017-09-13] MEDS: CARVEDILOL 12.5 MG TAB PO SCH ×2 (09:29→20:00)
[2017-09-13] MEDS: METHIMAZOLE 5 MG TAB PO SCH (09:29)
[2017-09-13] MEDS: ESCITALOPRAM OXALATE 10 MG TAB PO SCH (09:29)
[2017-09-13] MEDS: LACTOBACILLUS ACIDOPHILUS TAB PO SCH ×2 (09:29→20:00)
[2017-09-13] MEDS: LISINOPRIL 10 MG TAB PO SCH (09:29)
[2017-09-13] MEDS: DIGOXIN 0.25 MG TAB PO SCH (09:29)
[2017-09-13] MEDS: NS + KCL 20 MEQ INJ 1,000 ML IV SCH ×2 (09:30→17:27)
--- NOTE | 2017-09-13 10:01 | HHI.NPPN ---
Subjective History of Present Illness This is a 67-year-old male with a past medical history of alcoholism, history of hypertension, diabetes mellitus, ischemic heart disease, was admitted because of generalized weakness and alcohol withdrawal.Nephrology was called to see the patient because of elevated BUN and creatinine. The patient has creatinine of 1.1 on admission, which decreased to 0.6-0.7 and then it started going up for the last 5 days gradually to 1.2-1.5 now. The patient denies any previous history of renal disease. He has some nausea and decreased appetite and has loose bowel motion. The patient was found to have blood culture positive of Staph epidermidis and he is currently getting ceftriaxone and he was on vancomycin, but it was stopped on 09/08/2017. At that time, his vancomycin trough level was 29. Patient has been following with the GI and he has elevated liver enzymes, mainly because of alcoholism and he had endoscopy which shows that he has gastritis and esophagitis. (Hilda Grey) Review of Systems Respiratory Respiratory Remarks Denies any shortness of breath (Hilda Grey) Cardiovascular Cardiac Remarks Denies any chest pain (Hilda Grey) Gastrointestinal GI Remarks Denies any abdominal pain (Hilda Grey) Objective Data Data Vital Signs Date Time Temp Pulse Resp B/P (MAP) Pulse Ox O2 Delivery O2 Flow Rate FiO2 09/13/17 08:00 97.8 73 18 156/87 (110) 99 09/13/17 04:00 97.2 74 18 106/68 (81) 100 09/13/17 00:00 98.6 77 17 120/68 (85) 98 09/12/17 20:00 97.6 81 17 124/71 (88) 99 09/12/17 16:00 97.9 74 18 129/78 (95) 98 09/12/17 12:00 97.9 70 18 142/79 (100) 98 09/12/17 11:59 71 (Hilda Grey) -: 09/12/17 0320 09/13/17 0650 Imaging Last Impressions Abdomen/Pelvis CT 09/11/17 0000 Signed Impressions: Service Date/Time: Monday, September 11, 2017 20:28 - CONCLUSION: No acute CT findings in the abdomen or pelvis. Interval development of tiny bilateral pleural effusions. Stable diffuse hepatic steatosis. Sathya Rachel MD Head CT 09/02/172232 Signed Impressions: Service Date/Time: Sunday, September 03, 2017 00:11 - CONCLUSION: No acute intracranial findings Sathya Rachel MD Chest X-Ray 09/02/172232 Signed Impressions: Service Date/Time: Saturday, September 02, 2017 22:46 - CONCLUSION: No acute disease. Sathya Rachel MD (Hilda Grey. [employer] INVESTIGATOR) Physical Exam General Appearance: No Acute Distress, Comfortable (Hilda Grey. [employer] INVESTIGATOR) Throat Throat Exam: Oral Mucosa [place] & Moist (Hilda Grey. [employer] INVESTIGATOR) Pulmonary Resp Exam: Breath Sounds Equal, No Distress (Catarina Greyne M. [employer] INVESTIGATOR) Cardiology CV Exam: Normal Sinus Rhythm (YohanalerHilda west M. A[employer] AND B[employer] INVESTIGATOR) Gastrointestinal/Abdomen GI Exam: Soft, Non-Tender, Bowel Sounds Present GI Remarks large (Hilda Grey. [employer] INVESTIGATOR) Genitourinary Exam: Flank Non-Tender (Catarina Greyne M. [employer] INVESTIGATOR) Integumentary Skin Exam: Clear, Warm, Dry (Hilda Grey M. A[employer] AND B[employer] INVESTIGATOR) Extremeties Extremities Exam: Trace Edema (Catarina Greyne M. A[employer]ON AND B[employer] INVESTIGATOR) Neurologic Neuro Exam: Alert, Awake, Oriented (Catarina Greyne M. ARSON AND [employer] INVESTIGATOR) Psychiatric Psych Exam: Appropriate Responses (Hilda GreyP) Assessment/Plan Discussed Condition With: Patient Assessment Summary: TALON/Acute Renal Failure Problem List: (1) Acute kidney injury ICD Codes: N17.9 - Acute kidney failure, unspecified Plan: Acute kidney injury the patient has creatinine of 1.1 on admission, which decreased to 0.6-0.7 and then it started going up for the last 5 days gradually to 1.2-1.5 now. Differential diagnosis will be ATN, either from the infection or the possibility of vancomycin related toxicity. The patient has been nonoliguric. CT of abdomen with kidney with normal in size and shape. There is no mass, stone, or hydronephrosis. Proteinuria noted Plan Continue lisinopril if creatinine continues to worsen will hold. Urine sodium, osmolality, creatinine and urinalysis is pending. Continue IV fluid Avoid nephrotoxins Will follow urinary output and BMP (2) Elevated LFTs ICD Codes: R79.89 - Other specified abnormal findings of blood chemistry Plan: GI consulted and managing (3) DM (diabetes mellitus) ICD Codes: E11.9 - Type 2 diabetes mellitus without complications Plan: Maintain blood sugars between 140 mg/dl to 180 mg/dl (4) Hypertension ICD Codes: I10 - Essential (primary) hypertension Plan: continue medication well controlled (Hilda Grey) Problem List: (1) Acute kidney injury ICD Codes: N17.9 - Acute kidney failure, unspecified Plan: Acute kidney injury the patient has creatinine of 1.1 on admission, which decreased to 0.6-0.7 and then it started going up for the last 5 days gradually to 1.2-1.5 now. Differential diagnosis will be ATN, either from the infection or the possibility of vancomycin related toxicity. The patient has been nonoliguric. CT of abdomen with kidney with normal in size and shape. There is no mass, stone, or hydronephrosis. Proteinuria noted Plan Continue lisinopril if creatinine continues to worsen will hold. Urine sodium, osmolality, creatinine and urinalysis is pending. Continue IV fluid Avoid nephrotoxins Will follow urinary output and BMP. Patient seen and examined, agree with above. Creatinine is stable, sodium in urine is high, possibly ATN. (2) Elevated LFTs ICD Codes: R79.89 - Other specified abnormal findings of blood chemistry Plan: GI consulted and managing (3) DM (diabetes mellitus) ICD Codes: E11.9 - Type 2 diabetes mellitus without complications Plan: Maintain blood sugars between 140 mg/dl to 180 mg/dl (4) Hypertension ICD Codes: I10 - Essential (primary) hypertension Plan: continue medication well controlled (Luis Obando MD) Hilda Grey September 13, 2017 10:01 Luis Obando MD September 13, 2017 20:22
[2017-09-13 10:32] LABS: BACTERIA, URINE RARE /hpf; BILIRUBIN, URINE NEG (NEG); BLOOD, URINE TRACE (NEG); GLUCOSE,URINE NEG (NEG); KETONE, URINE NEG (NEG); MUCUS URINE FEW /lpf (OCC); NITRITE,URINE NEG (NEG); PH, URINE 5.5 (5.0-8.5); SQUAMOUS EPITHELIAL CELL URINE <1 /hpf (0-5); TRANSITIONAL EPI CELLS, URINE <1 /hpf; URINE COLOR LIGHT-YELLOW (YELLW/STRAW); URINE LEUKOCYTE ESTERASE NEG (NEG)
[2017-09-13 10:51] LABS: SODIUM,RANDOM URINE 104 MEQ/L
[2017-09-13 11:49] LABS: OSMOLALITY,URINE 284 MOSM/KG (300-1300)
[2017-09-13] MEDS: MAGNESIUM OXIDE 400 MG TAB PO SCH (11:57)
[2017-09-13] MEDS ORDERED: hydrALAZINE HCL 10 MG TAB PO PRN (12:00)
--- NOTE | 2017-09-13 13:27 | HHI.GIFU ---
Subjective Remarks Pt resting in bed States continued diarrhea Also has had a few episodes of incontinence Denies nausea, vomiting Has not been eating much, is trying to do the Glucerna shakes (Juanita Tucker) Objective Vitals I&O Vital Signs Date Time Temp Pulse Resp B/P (MAP) Pulse Ox O2 Delivery O2 Flow Rate FiO2 09/13/17 12:00 97.9 76 18 180/90 (120) 98 150/90 (110) 09/13/17 08:00 97.8 73 18 156/87 (110) 99 09/13/17 04:00 97.2 74 18 106/68 (81) 100 09/13/17 00:00 98.6 77 17 120/68 (85) 98 09/12/17 20:00 97.6 81 17 124/71 (88) 99 09/12/17 16:00 97.9 74 18 129/78 (95) 98 I/O 09/12/17 09/12/17 09/12/17 09/13/17 09/13/17 09/13/17 07:00 15:00 23:00 07:00 15:00 23:00 Intake Total 1220 ml 1960 ml 340 ml Output Total 500 ml 900 ml 800 ml 175 ml Balance 720 ml 1060 ml -460 ml -175 ml Intake Oral 120 ml 960 ml 240 ml IV Total 1100 ml 1000 ml 100 ml Output Urine Total 500 ml 900 ml 800 ml 175 ml # Bowel Movements 0 1 3 Laboratory Laboratory Tests Test 09/13/17 06:50 09/13/17 09:36 Blood Urea Nitrogen 5 Creatinine 1.63 Random Glucose 125 Calcium Level 8.4 Magnesium Level 1.9 Sodium Level 143 Potassium Level 4.6 Chloride Level 113 Carbon Dioxide Level 21.7 Anion Gap 8 Estimat Glomerular Filtration Rate 52 Urine Color LIGHT-YELLOW Urine Turbidity CLEAR Urine pH 5.5 Urine Specific Addy 1.006 Urine Protein TRACE Urine Glucose (UA) NEG Urine Ketones NEG Urine Occult Blood TRACE Urine Nitrite NEG Urine Bilirubin NEG Urine Urobilinogen LESS THAN 2.0 Urine Leukocyte Esterase NEG Urine RBC 1 Urine WBC 4 Urine Squamous Epithelial Cells <1 Urine Transitional Epithelial Cells <1 Urine Bacteria RARE Urine Mucus FEW Microscopic Urinalysis Comment CULT NOT INDICATED Urine Eosinophils RARE Urine Osmolality 284 Urine Random Creatinine 23.2 Urine Random Sodium 104 Date/Time Source Procedure Growth Status 09/04/17 11:53 Blood Peripheral Aerobic Blood Culture - Final NO GROWTH IN 5 DAYS Complete 09/04/17 11:53 Blood Peripheral Anaerobic Blood Culture - Final NO GROWTH IN 5 DAYS Complete Imaging Last Impressions Abdomen/Pelvis CT 09/11/17 0000 Signed Impressions: Service Date/Time: Monday, September 11, 2017 20:28 - CONCLUSION: No acute CT findings in the abdomen or pelvis. Interval development of tiny bilateral pleural effusions. Stable diffuse hepatic steatosis. Sathya Rachel MD Head CT 09/02/172232 Signed Impressions: Service Date/Time: Sunday, September 03, 2017 00:11 - CONCLUSION: No acute intracranial findings Sathya Rachel MD Chest X-Ray 09/02/172232 Signed Impressions: Service Date/Time: Saturday, September 02, 2017 22:46 - CONCLUSION: No acute disease. Sathya Rachel MD Physical Exam HEENT: Normocephalic; atraumatic CHEST: Even/unlabored CARDIAC: RRR ABDOMEN: Soft, nondistended, diffuse tenderness; bowel sounds active EXTREMITIES: No clubbing, cyanosis, or edema. SKIN: Normal; no rash; no jaundice. TECHNICAL REPORT WRITER: No focal deficits; alert and oriented times three. (Juanita Tucker [facility]) Assessment and Plan Plan Assessment: - Projectile vomiting- reports of nausea and vomiting for the past 3-4 weeks with some episodes of hematemesis preceded by extreme retching. Associated epigastric pain, acid reflux, and heartburn. CT abdomen and pelvis W IV contrast (09/03) --> No acute findings. Liver: Severely diminished hepatic attenuation likely reflecting steatosis. No focal mass. No biliary ductal dilatation. - ETOH abuse- reports drinking 1 gallon of vodka a week for multiple years- denies previous diagnosis of liver issues. - Transaminitis likely secondary to ETOH DF- 4 no indication for steroids LFTs currently: AST-307 ALT-112 T bili-3.9 Alk phos-285 No thrombocytopenia, coagulopathy. Mild hypoalbuminemia - Diarrhea- reports of diarrhea for the past 3-4 weeks with some episodes of hematochezia. Associated fecal urgency and incontinence. Family history of colon cancer. Has never had EGD or colonoscopy. - Weight loss- unsure of how much over what period of time. Family history significant for colon cancer, father. (09/05) EGD --> Class A esophagitis, erythematous gastritis, duodenal inflammation in the bulb and second portion of the duodenum. Pathology (duodenal bulb) without significant histologic abnormality (stomach, antrum) minimally active chronic gastritis with intestinal metaplasia, no H. Pylori (esophagus, distal) without significant histopathologic abnormality. Pt reports some nausea today, no emesis. Initially colonoscopy was held and only EGD was done because pt would not have tolerated the prep and was unable to get to the bathroom (syncopal episode on the toilet day of initial consult) Now pt seems able to tolerate Mag Citrate prep and he is agreeable to colonoscopy. LFTs trending down, hepatitis panel negative. (09/07) Pt reports diarrhea seems to be improving. Denies any continued nausea or vomiting. Colonoscopy --> Moderate diverticulosis in the sigmoid colon. Internal and external hemorrhoids. LFTs trending down. Reconsult for Diarrhea on 09/11 C. diff negative, stool culture was never sent, ordered during initial consult Of note, pt on Magnesium Oxide. (09/13) Pt complaining of continued diarrhea, states with some episodes of incontinence. Has been on Creon for two days. Also has poor appetite, states has been trying to take the Glucerna shakes but does not like the taste of them when they are warm Plan: GERALD Continue Creon Cholestyramine Xifaxan Encourage PO intake- Glucerna- may provide with bucket of ice Further recommendations based on clinical course Pt has been seen and examined by myself and Dr. Leija and myself and this note is on her behalf (Juanita Tucker) Juanita Tucker September 13, 2017 13:27 Kelli Leija MD September 13, 2017 16:47
--- NOTE | 2017-09-13 14:03 | HHI.PR ---
Subjective Remarks Still doesn't feel well. continues to have diarrhea. no nausea or vomiting. appetite still poor Objective Vitals Vital Signs Date Time Temp Pulse Resp B/P (MAP) Pulse Ox O2 Delivery O2 Flow Rate FiO2 09/13/17 12:00 97.9 76 18 180/90 (120) 98 150/90 (110) 09/13/17 08:00 97.8 73 18 156/87 (110) 99 09/13/17 04:00 97.2 74 18 106/68 (81) 100 09/13/17 00:00 98.6 77 17 120/68 (85) 98 09/12/17 20:00 97.6 81 17 124/71 (88) 99 09/12/17 16:00 97.9 74 18 129/78 (95) 98 I/O 09/12/17 09/12/17 09/12/17 09/13/17 09/13/17 09/13/17 07:00 15:00 23:00 07:00 15:00 23:00 Intake Total 1220 ml 1960 ml 340 ml Output Total 500 ml 900 ml 800 ml 175 ml Balance 720 ml 1060 ml -460 ml -175 ml Intake Oral 120 ml 960 ml 240 ml IV Total 1100 ml 1000 ml 100 ml Output Urine Total 500 ml 900 ml 800 ml 175 ml # Bowel Movements 0 1 3 Result Diagram: 09/12/17 0320 09/13/17 0650 Imaging Last Impressions Abdomen/Pelvis CT 09/11/17 0000 Signed Impressions: Service Date/Time: Monday, September 11, 2017 20:28 - CONCLUSION: No acute CT findings in the abdomen or pelvis. Interval development of tiny bilateral pleural effusions. Stable diffuse hepatic steatosis. Sathya Rachel MD Head CT 09/02/172232 Signed Impressions: Service Date/Time: Sunday, September 03, 2017 00:11 - CONCLUSION: No acute intracranial findings Sathya Rachel MD Chest X-Ray 09/02/172232 Signed Impressions: Service Date/Time: Saturday, September 02, 2017 22:46 - CONCLUSION: No acute disease. Sathya Rachel MD Objective Remarks awake and alert, appears tired lungs- clear w no wheezing regular rhythm abdomen soft, good bowel sounds extremities no edema Procedures 09/04 EGD w/ biopsy 09/06 colonoscopy 1. Moderate diverticulosis was noted in the sigmoid colon 2. Retroflexed views revealed internal hemorrhoids 3. Retroflexed views revealed medium internal hemorrhoids 4. Revealed external hemorrhoids A/P Problem List: (1) Alcohol withdrawal ICD Code: F10.239 - Alcohol dependence with withdrawal, unspecified (2) Elevated LFTs ICD Code: R79.89 - Other specified abnormal findings of blood chemistry (3) DM (diabetes mellitus) ICD Code: E11.9 - Type 2 diabetes mellitus without complications Assessment and Plan 67 years old male Alcohol Abuse- no DTs. S/P Librium course S. epidermidis bacteremia- repeat blood cultures. - so far no growth started Vancomycin 09/04. ID following changed to Rocephin 09/08 - give total 10 days course of antibitoics CXR negative ECHo- good EF, no vegetation S/P EGD- Esophagitis Macrocytic anemia S/P colonoscopy- internal hemorrhoids B12, folate level= normal PPI. no NSAIds Diarrhea- persistent C diff. - negative started lactinex bid 09/10 colonsocpy negative trial of Imodium 2 caps now GI following. Repeat CT abd/pelvis showed no acute CT findings but does show interval development of tiny bilateral pleural effusions. Discussed w GI and doing a trial of creon, Xifaxan and cholestyramine. UTI- s/p received 3 days Bactrim - asymptomatic- Alcoholic hepatitis - Elevated LFTs: admits to alcohol abuse. ff LFT trend- down trend CT of abdomen - unremarkable DM: Sliding scale w/ Accu-Cheks. trending down - per patient on Lantus and Humalog- liklely non compliant A1C 7.6 Dietitian consult. diabetes reinforcement/teaching patient complains of poor po appetite- d/w him that due to alcoholism - poor po decreased levemer 5 units and switched to qAM instead of HS and so far BS better. Adjusts slowly. History of CAD/CMP- not in clinical failure- EF good on coreg/digoxin/Amlodipine/Lisinopril as OP started on coreg 25 mg po bid continue on digoxin continue - Lisinopril at 10 mg - ff creatinine and K level Echo done with good EF 55% will not restart his lasix of 40 mg from home- caution Hypokalemia=- replace po give another 30 meq po x 1 now. IVF with KCL TALON- creatinine trending up - non oliguric - due to diarrhea s/p bolus and currently on IVF with KCl. normal renal Ultrasound ff BMP- hold Lisinopril, added hydralazine prn. nephrology following. History of hyperthyroidism restart on his Methimazole at 5 mg daily. (at home was on 10 mg ) TSH 6,4 Deconditioning- PT consult- feeling stronger DVT Prophylaxis: SCD/Teds Discharge Planning Social work for d/c planning as needed. continue to monitor BS and Cr levels closely. ID and GI following. Shruthi Elliott MD September 13, 2017 14:03
--- NOTE | 2017-09-13 18:04 | HHI.IDPN ---
Subjective Subjective Remarks 2 D echo negative BC 08/02 Staph epi burrell S c/o diarrhea x 2 days, C.diff neg on 09/09 no fever repeat BCx negative Creatinine going up and now in 1.6 range Antibiotics CFTX Allergies: Coded Allergies: No Known Allergies (Unverified , 09/02/17) Objective . Vital Signs Date Time Temp Pulse Resp B/P (MAP) Pulse Ox O2 Delivery O2 Flow Rate FiO2 09/13/17 12:00 97.9 76 18 180/90 (120) 98 150/90 (110) 09/13/17 08:00 97.8 73 18 156/87 (110) 99 09/13/17 04:00 97.2 74 18 106/68 (81) 100 09/13/17 00:00 98.6 77 17 120/68 (85) 98 09/12/17 20:00 97.6 81 17 124/71 (88) 99 09/13/17 09/13/17 09/14/17 15:00 23:00 07:00 Intake Total 1000 ml Output Total 175 ml Balance -175 ml 1000 ml IV Total 1000 ml Output Urine Total 175 ml . Laboratory Tests Test 09/12/17 03:20 White Blood Count 6.7 TH/MM3 Red Blood Count 2.77 MIL/MM3 Hemoglobin 9.5 GM/DL Hematocrit 28.9 % Mean Corpuscular Volume 104.3 FL Mean Corpuscular Hemoglobin 34.4 PG Mean Corpuscular Hemoglobin Concent 33.0 % Red Cell Distribution Width 15.8 % Platelet Count 200 TH/MM3 Mean Platelet Volume 9.1 FL Laboratory Tests Test 09/11/17 21:15 09/12/17 03:20 09/13/17 06:50 Total Bilirubin 1.2 MG/DL 1.0 MG/DL Direct Bilirubin 0.8 MG/DL Indirect Bilirubin 0.4 MG/DL Aspartate Amino Transf (AST/SGOT) 175 U/L 187 U/L Alanine Aminotransferase (ALT/SGPT) 65 U/L 72 U/L Alkaline Phosphatase 207 U/L 215 U/L Total Protein 5.7 GM/DL 5.5 GM/DL Albumin 2.1 GM/DL 2.0 GM/DL Lipase 27 U/L Blood Urea Nitrogen 5 MG/DL 5 MG/DL Creatinine 1.59 MG/DL 1.63 MG/DL Random Glucose 65 MG/DL 125 MG/DL Calcium Level 7.9 MG/DL 8.4 MG/DL Sodium Level 142 MEQ/L 143 MEQ/L Potassium Level 3.3 MEQ/L 4.6 MEQ/L Chloride Level 111 MEQ/L 113 MEQ/L Carbon Dioxide Level 24.2 MEQ/L 21.7 MEQ/L Anion Gap 7 MEQ/L 8 MEQ/L Estimat Glomerular Filtration Rate 53 ML/MIN 52 ML/MIN Magnesium Level 1.9 MG/DL Imaging Last Impressions Head CT 09/02/172232 Signed Impressions: Service Date/Time: Sunday, September 03, 2017 00:11 - CONCLUSION: No acute intracranial findings Sathya Rachel MD Chest X-Ray 09/02/172232 Signed Impressions: Service Date/Time: Saturday, September 02, 2017 22:46 - CONCLUSION: No acute disease. Sathya Rachel MD Abdomen/Pelvis CT 09/02/17 0000 Signed Impressions: Service Date/Time: Sunday, September 03, 2017 00:14 - CONCLUSION: No acute CT findings in the abdomen or pelvis. Sathya Rachel MD Physical Exam CONSTITUTIONAL/GENERAL: This is an adequately nourished patient, in no apparent distress. TUBES/LINES/DRAINS: SKIN: No jaundice, rashes, or lesions. Skin temperature appropriate. Not diaphoretic. CARDIOVASCULAR: Regular rate and rhythm without murmurs, gallops, or rubs. No JVD. Peripheral pulses symmetric. RESPIRATORY/CHEST: Symmetric, unlabored respirations. Clear to auscultation. Breath sounds equal bilaterally. No wheezes, rales, or rhonchi. GASTROINTESTINAL: Abdomen soft, non-tender, nondistended. No hepato-splenomegaly , or palpable masses. No guarding. Bowel sounds present. MUSCULOSKELETAL: Extremities without clubbing, cyanosis, or edema. No joint tenderness or effusion noted. No calf tenderness. No mottling or clubbing. NEUROLOGICAL: Awake and alert. Motor and sensory grossly within normal limits. Follows commands. Clear speech. Moves all extremities. PSYCHIATRIC: No obvious anxiety/depression. no apparent hallucinations or other psychotic thought process. Assessment & Plan Remarks High grade Staph epi bacteremia - S to CFTX - neg 2 D echo - neg repeat BC - No risk factors for coag neg staph bacteremia (e.i. prosthetic endovascular devices or lines) Chronic alcoholism Here for w/u of weight loss chk urine eos chk post void residuals CFTX cont abx x 10 days from the 1st neg BC dw Edith Gordon MD September 13, 2017 18:04
[2017-09-13] MEDS: CHOLESTYRAMINE 4 GM PACKET PO SCH (20:00)
[2017-09-13] MEDS: RIFAXIMIN 550 MG TAB PO SCH (20:00)
[2017-09-13] MEDS: cefTRIAXone INJ 2,000 MG in SODIUM CHLORIDE 0.9% INJ 100 ML IV SCH (20:00)
[2017-09-13] MEDS: ATORVASTATIN 40 MG TAB PO SCH (20:00)
[2017-09-14] VITALS (8 sets, daily range): BP systolic 112–157; BP diastolic 66–82; PULSE 73–94; RESP 17–19; TEMP 97.3–98.3; O2SAT 96–98
[2017-09-14] MEDS: NS + KCL 20 MEQ INJ 1,000 ML IV SCH ×2 (03:45→13:11)
[2017-09-14] MEDS: INSULIN ASPART SUPPLEMENTAL SCALE SQ SCH ×4 (08:00→19:55)
[2017-09-14] MEDS: ESCITALOPRAM OXALATE 10 MG TAB PO SCH (08:27)
[2017-09-14] MEDS: LACTOBACILLUS ACIDOPHILUS TAB PO SCH ×2 (08:27→19:50)
[2017-09-14] MEDS: METHIMAZOLE 5 MG TAB PO SCH (08:27)
[2017-09-14] MEDS: CARVEDILOL 12.5 MG TAB PO SCH ×2 (08:27→19:50)
[2017-09-14] MEDS: DIGOXIN 0.25 MG TAB PO SCH (08:28)
[2017-09-14] MEDS: INSULIN DETEMIR 100 UNITS/ML VIAL SQ SCH (08:28)
[2017-09-14] MEDS: RIFAXIMIN 550 MG TAB PO SCH ×2 (08:28→19:50)
[2017-09-14] MEDS: CHOLESTYRAMINE 4 GM PACKET PO SCH ×2 (08:28→19:50)
[2017-09-14] MEDS: LIPASE/PROTEASE/AMYLASE (24,000/76,000/120,000) CAP PO SCH ×3 (08:28→16:15)
[2017-09-14 08:54] LABS: ALT (GPT) 99 U/L (12-78)
[2017-09-14 08:56] LABS: ALKALINE PHOSPHATASE 259 U/L (45-117); TOTAL BILIRUBIN ADULT 1.1 MG/DL (0.2-1.0); TOTAL PROTEIN 6.3 GM/DL (6.4-8.2)
[2017-09-14] MEDS: SODIUM CHLORIDE 0.9% FLUSH 10 ML FLUSH IV FLUSH SCH ×2 (09:00→19:46)
[2017-09-14 09:03] LABS: AST (GOT) 244 U/L (15-37); BICARBONATE 21.2 MEQ/L (21.0-32.0); BLOOD UREA NITROGEN 5 MG/DL (7-18); CALCIUM 8.3 MG/DL (8.5-10.1); CHLORIDE 112 MEQ/L (98-107); CREATININE 1.84 MG/DL (0.60-1.30); GLOMERULAR FILTRATION RATE 45 ML/MIN (>89); GLUCOSE,RANDOM 160 MG/DL (74-106); MAGNESIUM 1.9 MG/DL (1.5-2.5); SODIUM (NA) 143 MEQ/L (136-145)
[2017-09-14] MEDS: MAGNESIUM OXIDE 400 MG TAB PO SCH (12:01)
--- NOTE | 2017-09-14 12:04 | HHI.PR ---
Subjective Remarks Pt states his diarrhea hasn't improved, already had about 5 BM's today. Denies any abdominal cramping. no nausea or vomiting. eating a banana complains of not being able to hold his urine before making it to the bedside commode. states that at times he does have a hard time initiating a stream. hasn 't seen a urologist for this. Objective Vitals Vital Signs Date Time Temp Pulse Resp B/P (MAP) Pulse Ox O2 Delivery O2 Flow Rate FiO2 09/14/17 08:00 97.3 90 17 157/81 (106) 98 09/14/17 03:29 89 09/14/17 00:00 98.0 74 19 127/71 (89) 98 09/13/17 23:55 86 09/13/17 20:00 98.0 77 19 136/73 (94) 98 09/13/17 19:43 77 09/13/17 16:00 97.9 74 18 153/86 (108) 99 09/13/17 12:00 97.9 76 18 180/90 (120) 98 150/90 (110) I/O 09/13/17 09/13/17 09/13/17 09/14/17 09/14/17 09/14/17 07:00 15:00 23:00 07:00 15:00 23:00 Intake Total 340 ml 2100 ml 240 ml Output Total 800 ml 175 ml 600 ml 1600 ml Balance -460 ml -175 ml 1500 ml -1360 ml Intake Oral 240 ml 1000 ml 240 ml IV Total 100 ml 1100 ml Output Urine Total 800 ml 175 ml 600 ml 1600 ml # Voids 2 # Bowel Movements 2 2 Result Diagram: 09/12/17 0320 09/14/17 0610 Imaging Last Impressions Abdomen/Pelvis CT 09/11/17 0000 Signed Impressions: Service Date/Time: Monday, September 11, 2017 20:28 - CONCLUSION: No acute CT findings in the abdomen or pelvis. Interval development of tiny bilateral pleural effusions. Stable diffuse hepatic steatosis. Sathya Rachel MD Head CT 09/02/172232 Signed Impressions: Service Date/Time: Sunday, September 03, 2017 00:11 - CONCLUSION: No acute intracranial findings Sathya Rachel MD Chest X-Ray 09/02/172232 Signed Impressions: Service Date/Time: Saturday, September 02, 2017 22:46 - CONCLUSION: No acute disease. Sathya Rachel MD Objective Remarks awake and alert, appears less tired today lungs- clear w no wheezing regular rhythm abdomen soft, good bowel sounds extremities no edema Procedures 09/04 EGD w/ biopsy 09/06 colonoscopy 1. Moderate diverticulosis was noted in the sigmoid colon 2. Retroflexed views revealed internal hemorrhoids 3. Retroflexed views revealed medium internal hemorrhoids 4. Revealed external hemorrhoids A/P Problem List: (1) Alcohol withdrawal ICD Code: F10.239 - Alcohol dependence with withdrawal, unspecified (2) Elevated LFTs ICD Code: R79.89 - Other specified abnormal findings of blood chemistry (3) DM (diabetes mellitus) ICD Code: E11.9 - Type 2 diabetes mellitus without complications Assessment and Plan 67 years old male Alcohol Abuse- no DTs. S/P Librium course S. epidermidis bacteremia- repeat blood cultures. - so far no growth started Vancomycin 09/04. ID following changed to Rocephin 09/08 - give total 10 days course of antibitoics (to be completed on09/18/17) CXR negative ECHo- good EF, no vegetation Macrocytic anemia S/P colonoscopy- internal hemorrhoids B12, folate level= normal PPI. no NSAIds S/P EGD- Esophagitis Diarrhea- persistent and not improved C diff. - negative started lactinex bid 09/10 colonoscopy negative GI following. Repeat CT abd/pelvis showed no acute CT findings but does show interval development of tiny bilateral pleural effusions. Discussed w GI and doing a trial of creon, Xifaxan and cholestyramine. So far no improvement per pt. I have encouraged him to eat bananas to help w potassium replacement. monitor K closely. K today 5.0, however if it continues to trend up may need to put him on low K diet. UTI- s/p received 3 days Bactrim - asymptomatic Suspecting BPH: started him on doxazosin. Pt to f/u w urology as an outpatient Alcoholic hepatitis - Elevated LFTs: admits to alcohol abuse. ff LFT trend- down trend CT of abdomen - unremarkable DM: Sliding scale w/ Accu-Cheks. trending down - per patient on Lantus and Humalog- liklely non compliant A1C 7.6 Dietitian consult. diabetes reinforcement/teaching patient complains of poor po appetite- d/w him that due to alcoholism - poor po on levemer 5 units qAM . Adjusts slowly. History of CAD/CMP- not in clinical failure- EF good on coreg/digoxin/Amlodipine/Lisinopril as OP on coreg 25 mg po bid continue on digoxin off Lisinopril at 10 mg due to worsening Cr - ff creatinine and K level Echo done with good EF 55% will not restart his lasix of 40 mg from home- caution Hypokalemia- resolved. TALON- continues to worsen - non oliguric s/p bolus and currently on IVF with KCl. normal renal Ultrasound Lisinopril on hold, added hydralazine prn. nephrology following. History of hyperthyroidism restart on his Methimazole at 5 mg daily. (at home was on 10 mg ) TSH 6.4 Deconditioning- PT following and recommends home health DVT Prophylaxis: SCD/Teds Discharge Planning Social work for d/c planning as needed. Pt will require home health continue to monitor BS and Cr levels closely. Cr continues to trend up + urine eosinophils. ID, nephrology and GI following. Shruthi Elliott MD September 14, 2017 12:04
--- NOTE | 2017-09-14 12:42 | HHI.NPPN ---
Subjective Renal Failure: Acute History of Present Illness This is a 67-year-old male with a past medical history of alcoholism, history of hypertension, diabetes mellitus, ischemic heart disease, was admitted because of generalized weakness and alcohol withdrawal.Nephrology was called to see the patient because of elevated BUN and creatinine. The patient has creatinine of 1.1 on admission, which decreased to 0.6-0.7 and then it started going up for the last 5 days gradually to 1.2-1.5 now. The patient denies any previous history of renal disease. He has some nausea and decreased appetite and has loose bowel motion. The patient was found to have blood culture positive of Staph epidermidis and he is currently getting ceftriaxone and he was on vancomycin, but it was stopped on 09/08/2017. At that time, his vancomycin trough level was 29. Patient has been following with the GI and he has elevated liver enzymes, mainly because of alcoholism and he had endoscopy which shows that he has gastritis and esophagitis. Additional Remarks Denies any shortness of breath. Moderate edema. (Hilda Grey) Review of Systems Respiratory Respiratory Remarks Denies any shortness of breath (Hilda Grey) Cardiovascular Cardiac Remarks Denies any chest pain (Hilda Grey) Gastrointestinal Gastrointestinal: Diarrhea (Hilda Grey) Objective Data Data Vital Signs Date Time Temp Pulse Resp B/P (MAP) Pulse Ox O2 Delivery O2 Flow Rate FiO2 09/14/17 08:00 97.3 90 17 157/81 (106) 98 09/14/17 03:29 89 09/14/17 00:00 98.0 74 19 127/71 (89) 98 09/13/17 23:55 86 09/13/17 20:00 98.0 77 19 136/73 (94) 98 09/13/17 19:43 77 09/13/17 16:00 97.9 74 18 153/86 (108) 99 (Hilda Grey) -: 09/12/17 0320 09/14/17 0610 Imaging Last Impressions Abdomen/Pelvis CT 09/11/17 0000 Signed Impressions: Service Date/Time: Monday, September 11, 2017 20:28 - CONCLUSION: No acute CT findings in the abdomen or pelvis. Interval development of tiny bilateral pleural effusions. Stable diffuse hepatic steatosis. Sathya Rachel MD Head CT 09/02/172232 Signed Impressions: Service Date/Time: Sunday, September 03, 2017 00:11 - CONCLUSION: No acute intracranial findings Sathya Rachel MD Chest X-Ray 09/02/172232 Signed Impressions: Service Date/Time: Saturday, September 02, 2017 22:46 - CONCLUSION: No acute disease. Sathya Rachel MD (GellerHilda west. CLINICAL SERVICES PROFESSIONAL) Physical Exam General Appearance: No Acute Distress, Comfortable (GellerCatarina westne M. CLINICAL SERVICES PROFESSIONAL) Throat Throat Exam: Oral Mucosa [place] & Moist (YohanalerCatarina westne M. CLINICAL SERVICES PROFESSIONAL) Pulmonary Resp Exam: Breath Sounds Equal, No Distress (YohanalerCatarina westne M. CLINICAL SERVICES PROFESSIONAL) Cardiology CV Exam: Normal Sinus Rhythm (GellerCatarina westne M. CLINICAL SERVICES PROFESSIONAL) Gastrointestinal/Abdomen GI Exam: Soft, Non-Tender, Bowel Sounds Present GI Remarks large (YohanalerCatarina westne Butch. CLINICAL SERVICES PROFESSIONAL) Genitourinary Exam: Flank Non-Tender (YohanalerCatarina westne M. CLINICAL SERVICES PROFESSIONAL) Integumentary Skin Exam: Clear, Warm, Dry (YohanalerCatarina westne M. CLINICAL SERVICES PROFESSIONAL) Extremeties Extremities Exam: Trace Edema (YohanalerCatarina westne M. CLINICAL SERVICES PROFESSIONAL) Neurologic Neuro Exam: Alert, Awake, Oriented (YohanalerCatarina westne M. CLINICAL SERVICES PROFESSIONAL) Psychiatric Psych Exam: Appropriate Responses (Catarina Greyne M. CLINICAL SERVICES PROFESSIONAL) Assessment/Plan Discussed Condition With: Patient Assessment Summary: TALON/Acute Renal Failure Problem List: (1) Acute kidney injury ICD Codes: N17.9 - Acute kidney failure, unspecified Plan: Acute kidney injury the patient has creatinine of 1.1 on admission, which decreased to 0.6-0.7 and then it started going up for the last 5 days gradually to 1.2-1.5 now. Differential diagnosis will be ATN, either from the infection or the possibility of vancomycin related toxicity. The patient has been nonoliguric. CT of abdomen with kidney with normal in size and shape. There is no mass, stone, or hydronephrosis. Proteinuria noted FeNa at 5.1% suggestive of ATN Plan Creatinine worsened at 1.84 from 1.63 Non oliguric Hold lisinopril Continue IV fluid Avoid nephrotoxins Fluids encouraged Will follow urinary output and BMP. (2) Elevated LFTs ICD Codes: R79.89 - Other specified abnormal findings of blood chemistry Plan: GI consulted and managing (3) DM (diabetes mellitus) ICD Codes: E11.9 - Type 2 diabetes mellitus without complications Plan: Maintain blood sugars between 140 mg/dl to 180 mg/dl (4) Hypertension ICD Codes: I10 - Essential (primary) hypertension Plan: continue medication well controlled (Hilda Grey) Problem List: (1) Acute kidney injury ICD Codes: N17.9 - Acute kidney failure, unspecified Plan: Acute kidney injury the patient has creatinine of 1.1 on admission, which decreased to 0.6-0.7 and then it started going up for the last 5 days gradually to 1.2-1.5 now. Differential diagnosis will be ATN, either from the infection or the possibility of vancomycin related toxicity. The patient has been nonoliguric. CT of abdomen with kidney with normal in size and shape. There is no mass, stone, or hydronephrosis. Proteinuria noted FeNa at 5.1% suggestive of ATN Plan Creatinine worsened at 1.84 from 1.63 Non oliguric Hold lisinopril Continue IV fluid Avoid nephrotoxins Fluids encouraged Will follow urinary output and BMP. Patient seen and examined, agree with above. Creatinine increase slightly, possibly has ATN. (2) Elevated LFTs ICD Codes: R79.89 - Other specified abnormal findings of blood chemistry Plan: GI consulted and managing (3) DM (diabetes mellitus) ICD Codes: E11.9 - Type 2 diabetes mellitus without complications Plan: Maintain blood sugars between 140 mg/dl to 180 mg/dl (4) Hypertension ICD Codes: I10 - Essential (primary) hypertension Plan: continue medication well controlled (Luis Obando MD) Hilda Grey September 14, 2017 12:42 Luis Obando MD September 18, 2017 19:14
--- NOTE | 2017-09-14 15:40 | HHI.GIFU ---
Subjective Remarks Pt states diarrhea seems to be improving some but continues to have multiple BMs Also having abdominal pain States he has been eating OK (Juanita Tucker) Objective Vitals I&O Vital Signs Date Time Temp Pulse Resp B/P (MAP) Pulse Ox O2 Delivery O2 Flow Rate FiO2 09/14/17 12:00 97.7 91 18 112/67 (82) 97 09/14/17 08:00 97.3 90 17 157/81 (106) 98 09/14/17 03:29 89 09/14/17 00:00 98.0 74 19 127/71 (89) 98 09/13/17 23:55 86 09/13/17 20:00 98.0 77 19 136/73 (94) 98 09/13/17 19:43 77 09/13/17 16:00 97.9 74 18 153/86 (108) 99 I/O 09/13/17 09/13/17 09/13/17 09/14/17 09/14/17 09/14/17 07:00 15:00 23:00 07:00 15:00 23:00 Intake Total 340 ml 2100 ml 240 ml Output Total 800 ml 175 ml 600 ml 1600 ml Balance -460 ml -175 ml 1500 ml -1360 ml Intake Oral 240 ml 1000 ml 240 ml IV Total 100 ml 1100 ml Output Urine Total 800 ml 175 ml 600 ml 1600 ml # Voids 2 # Bowel Movements 2 2 Laboratory Laboratory Tests Test 09/14/17 06:10 Blood Urea Nitrogen 5 Creatinine 1.84 Random Glucose 160 Total Protein 6.3 Albumin 2.0 Calcium Level 8.3 Magnesium Level 1.9 Alkaline Phosphatase 259 Aspartate Amino Transf (AST/SGOT) 244 Alanine Aminotransferase (ALT/SGPT) 99 Total Bilirubin 1.1 Sodium Level 143 Potassium Level 5.0 Chloride Level 112 Carbon Dioxide Level 21.2 Anion Gap 10 Estimat Glomerular Filtration Rate 45 Date/Time Source Procedure Growth Status 09/04/17 11:53 Blood Peripheral Aerobic Blood Culture - Final NO GROWTH IN 5 DAYS Complete 09/04/17 11:53 Blood Peripheral Anaerobic Blood Culture - Final NO GROWTH IN 5 DAYS Complete Imaging Last Impressions Abdomen/Pelvis CT 09/11/17 0000 Signed Impressions: Service Date/Time: Monday, September 11, 2017 20:28 - CONCLUSION: No acute CT findings in the abdomen or pelvis. Interval development of tiny bilateral pleural effusions. Stable diffuse hepatic steatosis. Sathya Rachel MD Head CT 09/02/172232 Signed Impressions: Service Date/Time: Sunday, September 03, 2017 00:11 - CONCLUSION: No acute intracranial findings Sathya Rachel MD Chest X-Ray 09/02/172232 Signed Impressions: Service Date/Time: Saturday, September 02, 2017 22:46 - CONCLUSION: No acute disease. Sathya Rachel MD Physical Exam HEENT: Normocephalic; atraumatic CHEST: Even/unlabored CARDIAC: RRR ABDOMEN: Soft, nondistended, diffuse tenderness; bowel sounds active EXTREMITIES: No clubbing, cyanosis, or edema. SKIN: Normal; no rash; no jaundice. DIRECTOR OF PRIMARY CARE: No focal deficits; alert and oriented times three. (Juanita Tucker [facility]) Assessment and Plan Plan Assessment: - Projectile vomiting- reports of nausea and vomiting for the past 3-4 weeks with some episodes of hematemesis preceded by extreme retching. Associated epigastric pain, acid reflux, and heartburn. CT abdomen and pelvis W IV contrast (09/03) --> No acute findings. Liver: Severely diminished hepatic attenuation likely reflecting steatosis. No focal mass. No biliary ductal dilatation. - ETOH abuse- reports drinking 1 gallon of vodka a week for multiple years- denies previous diagnosis of liver issues. - Transaminitis likely secondary to ETOH DF- 4 no indication for steroids LFTs currently: AST-307 ALT-112 T bili-3.9 Alk phos-285 No thrombocytopenia, coagulopathy. Mild hypoalbuminemia - Diarrhea- reports of diarrhea for the past 3-4 weeks with some episodes of hematochezia. Associated fecal urgency and incontinence. Family history of colon cancer. Has never had EGD or colonoscopy. - Weight loss- unsure of how much over what period of time. Family history significant for colon cancer, father. (09/05) EGD --> Class A esophagitis, erythematous gastritis, duodenal inflammation in the bulb and second portion of the duodenum. Pathology (duodenal bulb) without significant histologic abnormality (stomach, antrum) minimally active chronic gastritis with intestinal metaplasia, no H. Pylori (esophagus, distal) without significant histopathologic abnormality. Pt reports some nausea today, no emesis. Initially colonoscopy was held and only EGD was done because pt would not have tolerated the prep and was unable to get to the bathroom (syncopal episode on the toilet day of initial consult) Now pt seems able to tolerate Mag Citrate prep and he is agreeable to colonoscopy. LFTs trending down, hepatitis panel negative. (09/07) Pt reports diarrhea seems to be improving. Denies any continued nausea or vomiting. Colonoscopy --> Moderate diverticulosis in the sigmoid colon. Internal and external hemorrhoids. LFTs trending down. Reconsult for Diarrhea on 09/11 C. diff negative, stool culture was never sent, ordered during initial consult Of note, pt on Magnesium Oxide. (09/13) Pt complaining of continued diarrhea, states with some episodes of incontinence. Has been on Creon for two days. Also has poor appetite, states has been trying to take the Glucerna shakes but does not like the taste of them when they are warm (09/14) Pt reports some improvement of diarrhea but continues to have multiple BMs. Also complaining of abdominal pain. Increase in LFTs noted today, they had been trending down since admission. ? secondary to medication. US abdomen ordered. Plan: Abdominal US GERALD Continue Creon Cholestyramine Xifaxan Encourage PO intake- Glucerna- may provide with bucket of ice Further recommendations based on clinical course Pt has been seen and examined by myself and Dr. Leija and myself and this note is on her behalf (Juanita Tucker) Juanita Tucker September 14, 2017 15:40 Kelli Leija MD September 14, 2017 18:15
[2017-09-14] MEDS: DOXAZOSIN MESYLATE 1 MG TAB PO SCH (16:16)
[2017-09-14] MEDS: ATORVASTATIN 40 MG TAB PO SCH (19:50)
[2017-09-15] VITALS: BP 100/63; PULSE 75; RESP 16; TEMP 97.4; O2SAT 96
[2017-09-15] MEDS: NS + KCL 20 MEQ INJ 1,000 ML IV SCH ×2 (00:50→09:32)
[2017-09-15 04:00] VITALS: BP 160/87; PULSE 76; PULSE 78; RESP 16; TEMP 97.5; O2SAT 97
[2017-09-15 07:04] LABS: BICARBONATE 22.1 MEQ/L (21.0-32.0); CALCIUM 8.3 MG/DL (8.5-10.1); CREATININE 1.64 MG/DL (0.60-1.30)
[2017-09-15] MEDS: INSULIN ASPART SUPPLEMENTAL SCALE SQ SCH ×4 (07:52→22:40)
[2017-09-15 08:00] VITALS: BP 170/95; PULSE 70; RESP 16; TEMP 97.8; O2SAT 99
--- NOTE | 2017-09-15 08:46 | HHI.NPPN ---
Subjective Renal Failure: Acute History of Present Illness This is a 67-year-old male with a past medical history of alcoholism, history of hypertension, diabetes mellitus, ischemic heart disease, was admitted because of generalized weakness and alcohol withdrawal.Nephrology was called to see the patient because of elevated BUN and creatinine. The patient has creatinine of 1.1 on admission, which decreased to 0.6-0.7 and then it started going up for the last 5 days gradually to 1.2-1.5 now. The patient denies any previous history of renal disease. He has some nausea and decreased appetite and has loose bowel motion. The patient was found to have blood culture positive of Staph epidermidis and he is currently getting ceftriaxone and he was on vancomycin, but it was stopped on 09/08/2017. At that time, his vancomycin trough level was 29. Patient has been following with the GI and he has elevated liver enzymes, mainly because of alcoholism and he had endoscopy which shows that he has gastritis and esophagitis. Additional Remarks Denies any shortness of breath. Getting ultrasound done. Loose stools improving. (Hilda Grey) Review of Systems Respiratory Respiratory Remarks Denies any shortness of breath (Hilda Grey) Cardiovascular Cardiac Remarks Denies any chest pain (Hilda Grey) Gastrointestinal Gastrointestinal: Diarrhea (Hilda Grey) Objective Data Data Vital Signs Date Time Temp Pulse Resp B/P (MAP) Pulse Ox O2 Delivery O2 Flow Rate FiO2 09/15/17 04:00 97.5 78 16 160/87 (111) 97 09/15/17 04:00 76 09/15/17 00:00 97.4 75 16 100/63 (75) 96 09/14/17 23:59 73 09/14/17 20:00 97.4 84 18 126/66 (86) 97 09/14/17 19:59 82 09/14/17 16:00 98.3 94 17 151/82 (105) 96 09/14/17 12:00 97.7 91 18 112/67 (82) 97 (Hilda Grey) -: 09/12/17 0320 09/15/17 0553 Imaging Last Impressions Abdomen/Pelvis CT 09/11/17 0000 Signed Impressions: Service Date/Time: Monday, September 11, 2017 20:28 - CONCLUSION: No acute CT findings in the abdomen or pelvis. Interval development of tiny bilateral pleural effusions. Stable diffuse hepatic steatosis. Sathya Rachel MD Head CT 09/02/172232 Signed Impressions: Service Date/Time: Sunday, September 03, 2017 00:11 - CONCLUSION: No acute intracranial findings Sathya Rachel MD Chest X-Ray 09/02/172232 Signed Impressions: Service Date/Time: Saturday, September 02, 2017 22:46 - CONCLUSION: No acute disease. Sathya Rachel MD (Hilda Grey. PRODUCT SUPPORT CONSULTANT) Physical Exam General Appearance: No Acute Distress, Comfortable (Hilda Grey. PRODUCT SUPPORT CONSULTANT) Throat Throat Exam: Oral Mucosa [place] & Moist (Hilda Grey. PRODUCT SUPPORT CONSULTANT) Pulmonary Resp Exam: Breath Sounds Equal, No Distress (Hilda Grey. PRODUCT SUPPORT CONSULTANT) Cardiology CV Exam: Normal Sinus Rhythm (Hilda Grey. PRODUCT SUPPORT CONSULTANT) Gastrointestinal/Abdomen GI Exam: Soft, Non-Tender, Bowel Sounds Present GI Remarks large (Hilda Grey. PRODUCT SUPPORT CONSULTANT) Genitourinary Exam: Flank Non-Tender (Hilda Grey. PRODUCT SUPPORT CONSULTANT) Integumentary Skin Exam: Clear, Warm, Dry (Hilda Grey. PRODUCT SUPPORT CONSULTANT) Extremeties Extremities Exam: Trace Edema (Hilda Grey M. PRODUCT SUPPORT CONSULTANT) Neurologic Neuro Exam: Alert, Awake, Oriented (Hilda Grey. PRODUCT SUPPORT CONSULTANT) Psychiatric Psych Exam: Appropriate Responses (Hilda Grey) Assessment/Plan Discussed Condition With: Patient Assessment Summary: TALON/Acute Renal Failure Problem List: (1) Acute kidney injury ICD Codes: N17.9 - Acute kidney failure, unspecified Plan: Acute kidney injury the patient has creatinine of 1.1 on admission, which decreased to 0.6-0.7 and then it started going up for the last 5 days gradually to 1.2-1.5 now. Differential diagnosis will be ATN, either from the infection or the possibility of vancomycin related toxicity. The patient has been nonoliguric. CT of abdomen with kidney with normal in size and shape. There is no mass, stone, or hydronephrosis. Proteinuria noted FeNa at 5.1% suggestive of ATN Plan Creatinine improved at 1.64 from 1.84 Non oliguric Hold lisinopril Continue IV fluid Avoid nephrotoxins Fluids encouraged Continues to have loose stools but improving. Having abdominal US done. Will follow urinary output and BMP. (2) Elevated LFTs ICD Codes: R79.89 - Other specified abnormal findings of blood chemistry Plan: GI consulted and managing (3) DM (diabetes mellitus) ICD Codes: E11.9 - Type 2 diabetes mellitus without complications Plan: Maintain blood sugars between 140 mg/dl to 180 mg/dl (4) Hypertension ICD Codes: I10 - Essential (primary) hypertension Plan: continue medication well controlled (Hilda Grey) Problem List: (1) Acute kidney injury ICD Codes: N17.9 - Acute kidney failure, unspecified Plan: Acute kidney injury the patient has creatinine of 1.1 on admission, which decreased to 0.6-0.7 and then it started going up for the last 5 days gradually to 1.2-1.5 now. Differential diagnosis will be ATN, either from the infection or the possibility of vancomycin related toxicity. The patient has been nonoliguric. CT of abdomen with kidney with normal in size and shape. There is no mass, stone, or hydronephrosis. Proteinuria noted FeNa at 5.1% suggestive of ATN Plan Creatinine improved at 1.64 from 1.84 Non oliguric Hold lisinopril Continue IV fluid Avoid nephrotoxins Fluids encouraged Continues to have loose stools but improving. Having abdominal US done. Will follow urinary output and BMP. Patient seen and examined, agree with above. Follow the urine out put and BMP. (2) Elevated LFTs ICD Codes: R79.89 - Other specified abnormal findings of blood chemistry Plan: GI consulted and managing (3) DM (diabetes mellitus) ICD Codes: E11.9 - Type 2 diabetes mellitus without complications Plan: Maintain blood sugars between 140 mg/dl to 180 mg/dl (4) Hypertension ICD Codes: I10 - Essential (primary) hypertension Plan: continue medication well controlled (Luis Obando MD) Hilda Grey September 15, 2017 08:46 Luis Obando MD September 18, 2017 19:18
[2017-09-15] MEDS: INSULIN DETEMIR 100 UNITS/ML VIAL SQ SCH (09:00)
[2017-09-15] MEDS: METHIMAZOLE 5 MG TAB PO SCH (09:00)
[2017-09-15] MEDS: SODIUM CHLORIDE 0.9% FLUSH 10 ML FLUSH IV FLUSH SCH ×2 (09:00→22:29)
--- NOTE | 2017-09-15 09:04 | HHI.GIFU ---
Subjective Remarks Pt sitting up in bed Eating cream of wheat and a popsicle for breakfast States diarrhea seems to be improving some, last BM at 4 am this morning Abdominal pain improving (Juanita Tucker) Objective Vitals I&O Vital Signs Date Time Temp Pulse Resp B/P (MAP) Pulse Ox O2 Delivery O2 Flow Rate FiO2 09/15/17 04:00 97.5 78 16 160/87 (111) 97 09/15/17 04:00 76 09/15/17 00:00 97.4 75 16 100/63 (75) 96 09/14/17 23:59 73 09/14/17 20:00 97.4 84 18 126/66 (86) 97 09/14/17 19:59 82 09/14/17 16:00 98.3 94 17 151/82 (105) 96 09/14/17 12:00 97.7 91 18 112/67 (82) 97 I/O 09/14/17 09/14/17 09/14/17 09/15/17 09/15/17 09/15/17 07:00 15:00 23:00 07:00 15:00 23:00 Intake Total 1240 ml 680 ml 1200 ml Output Total 1600 ml 300 ml Balance -360 ml 380 ml 1200 ml Intake Oral 240 ml 680 ml 200 ml IV Total 1000 ml 1000 ml Output Urine Total 1600 ml 300 ml # Voids 2 3 # Bowel Movements 2 1 2 Laboratory Laboratory Tests Test 09/15/17 05:53 Blood Urea Nitrogen 4 Creatinine 1.64 Random Glucose 118 Calcium Level 8.3 Sodium Level 144 Potassium Level 3.6 Chloride Level 113 Carbon Dioxide Level 22.1 Anion Gap 9 Estimat Glomerular Filtration Rate 51 Date/Time Source Procedure Growth Status 09/04/17 11:53 Blood Peripheral Aerobic Blood Culture - Final NO GROWTH IN 5 DAYS Complete 09/04/17 11:53 Blood Peripheral Anaerobic Blood Culture - Final NO GROWTH IN 5 DAYS Complete Imaging Last Impressions Abdomen/Pelvis CT 09/11/17 0000 Signed Impressions: Service Date/Time: Monday, September 11, 2017 20:28 - CONCLUSION: No acute CT findings in the abdomen or pelvis. Interval development of tiny bilateral pleural effusions. Stable diffuse hepatic steatosis. Sathya Rachel MD Head CT 09/02/17 2233 Signed Impressions: Service Date/Time: Sunday, September 03, 2017 00:11 - CONCLUSION: No acute intracranial findings Sathya Rachel MD Chest X-Ray 09/02/17 0313 Signed Impressions: Service Date/Time: Saturday, September 02, 2017 22:46 - CONCLUSION: No acute disease. Sathya Rachel MD Physical Exam HEENT: Normocephalic; atraumatic CHEST: Even/unlabored CARDIAC: RRR ABDOMEN: Soft, nondistended, diffuse tenderness; bowel sounds active EXTREMITIES: No clubbing, cyanosis, or edema. SKIN: Normal; no rash; no jaundice. SUPERVISOR SEWER MAINTENANCE: No focal deficits; alert and oriented times three. (Juanita Tucker) Assessment and Plan Plan Assessment: - Projectile vomiting- reports of nausea and vomiting for the past 3-4 weeks with some episodes of hematemesis preceded by extreme retching. Associated epigastric pain, acid reflux, and heartburn. CT abdomen and pelvis W IV contrast (09/03) --> No acute findings. Liver: Severely diminished hepatic attenuation likely reflecting steatosis. No focal mass. No biliary ductal dilatation. - ETOH abuse- reports drinking 1 gallon of vodka a week for multiple years- denies previous diagnosis of liver issues. - Transaminitis likely secondary to ETOH DF- 4 no indication for steroids LFTs currently: AST-307 ALT-112 T bili-3.9 Alk phos-285 No thrombocytopenia, coagulopathy. Mild hypoalbuminemia - Diarrhea- reports of diarrhea for the past 3-4 weeks with some episodes of hematochezia. Associated fecal urgency and incontinence. Family history of colon cancer. Has never had EGD or colonoscopy. - Weight loss- unsure of how much over what period of time. Family history significant for colon cancer, father. (09/05) EGD --> Class A esophagitis, erythematous gastritis, duodenal inflammation in the bulb and second portion of the duodenum. Pathology (duodenal bulb) without significant histologic abnormality (stomach, antrum) minimally active chronic gastritis with intestinal metaplasia, no H. Pylori (esophagus, distal) without significant histopathologic abnormality. Pt reports some nausea today, no emesis. Initially colonoscopy was held and only EGD was done because pt would not have tolerated the prep and was unable to get to the bathroom (syncopal episode on the toilet day of initial consult) Now pt seems able to tolerate Mag Citrate prep and he is agreeable to colonoscopy. LFTs trending down, hepatitis panel negative. (09/07) Pt reports diarrhea seems to be improving. Denies any continued nausea or vomiting. Colonoscopy --> Moderate diverticulosis in the sigmoid colon. Internal and external hemorrhoids. LFTs trending down. Reconsult for Diarrhea on 09/11 C. diff negative, stool culture was never sent, ordered during initial consult Of note, pt on Magnesium Oxide. (09/13) Pt complaining of continued diarrhea, states with some episodes of incontinence. Has been on Creon for two days. Also has poor appetite, states has been trying to take the Glucerna shakes but does not like the taste of them when they are warm (09/14) Pt reports some improvement of diarrhea but continues to have multiple BMs. Also complaining of abdominal pain. Increase in LFTs noted today, they had been trending down since admission. ? secondary to medication. US abdomen ordered. (09/15) Pt reports some continued improvement in diarrhea, last BM at 4 AM. No repeat LFTs today. Abdominal US done, report pending. Plan: Abdominal US pending GERALD Continue Creon Cholestyramine Xifaxan Encourage PO intake- Glucerna- may provide with bucket of ice Further recommendations based on clinical course Pt has been seen and examined by myself and Dr. Leija and myself and this note is on her behalf (Juanita Tucker) Physician Comments seen, examined us noted-hida scan (Kelli Leija MD) Juanita Tucker September 15, 2017 09:04 Kelli Leija MD September 15, 2017 18:46
[2017-09-15] MEDS: CARVEDILOL 12.5 MG TAB PO SCH ×2 (09:18→22:28)
[2017-09-15] MEDS: CHOLESTYRAMINE 4 GM PACKET PO SCH ×2 (09:18→22:27)
[2017-09-15] MEDS: DIGOXIN 0.25 MG TAB PO SCH (09:18)
[2017-09-15] MEDS: RIFAXIMIN 550 MG TAB PO SCH ×2 (09:18→22:27)
[2017-09-15] MEDS: ESCITALOPRAM OXALATE 10 MG TAB PO SCH (09:18)
[2017-09-15] MEDS: DOXAZOSIN MESYLATE 1 MG TAB PO SCH (09:18)
[2017-09-15] MEDS: LACTOBACILLUS ACIDOPHILUS TAB PO SCH ×2 (09:19→22:27)
[2017-09-15] MEDS: LIPASE/PROTEASE/AMYLASE (24,000/76,000/120,000) CAP PO SCH ×3 (09:19→18:00)
--- NOTE | 2017-09-15 09:26 | RADRPT ---
EXAM DATE/TIME: 09/15/2017 08:24 [facility] COMPARISON: CT ABDOMEN & PELVIS W/O CONTRAST, September 11, 2017, 20:28. INDICATIONS : Elevated liver function tests. MEDICAL HISTORY : Myocardial infarction. Hypercholesterolemia. Arthritis. Syncope. Migraines. HTN. Dyspnea. Abdominal p ain. Hematemesis. Melena. Diabetes. ETOH abuse. SURGICAL HISTORY : None. ENCOUNTER: Initial ACUITY: 2 days PAIN SCORE: 0/10 LOCATION: Abdomen. MEASUREMENTS: LIVER: 16.7 cm length COMMON DUCT: 7 mm RIGHT KIDNEY: 11.4 x 5.6 x 5.7 cm LEFT KIDNEY: 11.6 x 6.2 x 6.0 cm SPLEEN: 10.1 cm length AORTA: 2.5cm maximal FINDINGS: LIVER: Diffusely increased hepatic echogenicity without intrahepatic ductal dilatation, volume loss or focal mass. COMMON DUCT: No intraluminal mass or stone visualized. GALLBLADDER: Small amount of sludge in the gallbladder. Diffuse gallbladder wall thickening with questionable gera cholecystic fluid. No sonographic Villa sign. PANCREAS: Partly obscured. RIGHT KIDNEY: No hydronephrosis, stone or mass. LEFT KIDNEY: No hydronephrosis, stone or mass. SPLEEN: No focal lesion. AORTA: Non aneurysmal. IVC: Within normal limits. CONCLUSION: 1. No diffusely increased hepatic echogenicity without volume loss consistent with hepatic steatosis versus medical liver disease. 2. Small amount of gallbladder sludge with color wall thickening and questionable pericholecystic flu id. These findings are commonly seen in the setting of chronic liver disease but significantly reduce sonographic sensitivity for evaluation of acute cholecystitis. If there is significant clinical conc cornelia for acute cholecystitis, HIDA scan may be performed to evaluate for cystic duct patency. Albaro Vaughan MD on September 15, 2017 at 9:04 Board Certified Radiologist. This report was verified electronically.
[2017-09-15 09:54] LABS: ALBUMIN 2.2 GM/DL (3.4-5.0); DIRECT BILIRUBIN ADULT 0.9 MG/DL (0.0-0.2)
[2017-09-15 09:55] LABS: INDIRECT BILIRUBIN 0.4 MG/DL (0.0-0.8); TOTAL BILIRUBIN ADULT 1.3 MG/DL (0.2-1.0); TOTAL PROTEIN 6.4 GM/DL (6.4-8.2)
--- NOTE | 2017-09-15 10:14 | HHI.PR ---
Subjective Remarks Nursing denies any deterioration since last night. Says he was having "back- to-back" bowel movements prior to 4 AM this morning. he thinks his diarrhea is slowing down in comparison since he has not had a bowel movement since 4 AM this morning. Denies having any nausea vomiting or abdominal pain. Tolerating p.o. intake well. Objective Vital Signs Date Time Temp Pulse Resp B/P (MAP) Pulse Ox O2 Delivery O2 Flow Rate FiO2 09/15/17 08:00 97.8 70 16 170/95 (120) 99 09/15/17 04:00 97.5 78 16 160/87 (111) 97 09/15/17 04:00 76 09/15/17 00:00 97.4 75 16 100/63 (75) 96 09/14/17 23:59 73 09/14/17 20:00 97.4 84 18 126/66 (86) 97 09/14/17 19:59 82 09/14/17 16:00 98.3 94 17 151/82 (105) 96 09/14/17 12:00 97.7 91 18 112/67 (82) 97 I/O 09/14/17 09/14/17 09/14/17 09/15/17 09/15/17 09/15/17 07:00 15:00 23:00 07:00 15:00 23:00 Intake Total 1240 ml 680 ml 1200 ml Output Total 1600 ml 300 ml Balance -360 ml 380 ml 1200 ml Intake Oral 240 ml 680 ml 200 ml IV Total 1000 ml 1000 ml Output Urine Total 1600 ml 300 ml # Voids 2 3 # Bowel Movements 2 1 2 Result Diagram: 09/12/17 0320 09/15/17 0553 Objective Remarks Abdomen soft, nontender, nondistended Positive bowel sounds Awake alert, no acute distress A/P Assessment and Plan 67 years old male S. epidermidis bacteremia- repeat blood cultures. - so far no growth Rocephin 09/08 - give total 10 days course of antibitoics (to be completed on09/18/17) per Infectious disease; maybe candidate for HH w/ IV Abx if discharged tomorrow Diarrhea-slowly improving finally Colonoscopy and C diff and repeat CT abdomen pelvis- negative lactinex bid GI following, on trial of creon, Xifaxan and cholestyramine. TALON- mild improvement finally since yesterday- non oliguric I will switch IV fluids from KCl to normal saline Lisinopril on hold, added hydralazine prn. nephrology following. Macrocytic anemia S/P colonoscopy- internal hemorrhoids B12, folate level= normal PPI. no NSAIds S/P EGD- Esophagitis UTI- s/p received 3 days Bactrim - asymptomatic Suspecting BPH: doxazosin. Pt to f/u w urology as an outpatient Alcoholic hepatitis - Elevated LFTs: admits to alcohol abuse. ff LFT trend- down trend CT of abdomen - unremarkable Alcohol Abuse- no DTs. S/P Librium course DM: Sliding scale w/ Accu-Cheks. trending down - per patient on Lantus and Humalog- liklely non compliant A1C 7.6 Dietitian consult. diabetes reinforcement/teaching patient complains of poor po appetite- d/w him that due to alcoholism - poor po on levemer 5 units qAM . Adjusts slowly. History of CAD/CMP- not in clinical failure- EF good on coreg/digoxin/Amlodipine/Lisinopril as OP on coreg 25 mg po bid continue on digoxin off Lisinopril at 10 mg due to worsening Cr - ff creatinine and K level Echo done with good EF 55% will not restart his lasix of 40 mg from home- caution chronic hyperthyroidism Methimazole at 5 mg daily. (at home was on 10 mg ) TSH 6.4 Deconditioning- PT following and recommends home health DVT Prophylaxis: SCD/Teds Discharge Planning Discharge pending stable renal function and improving diarrhea as well as possible arrangements for IV antibiotics at home for bacteremia, possible discharge on 09/16 if cleared with nephrology and infectious disease and GI assuming diarrhea is improving Kali Llanos MD September 15, 2017 10:14
[2017-09-15] MEDS: SODIUM CHLOR 0.9% 1000 ML INJ 1,000 ML IV SCH ×2 (11:58→22:29)
[2017-09-15 12:00] VITALS: BP 152/80; PULSE 80; RESP 18; TEMP 98.1; O2SAT 98
[2017-09-15] MEDS: MAGNESIUM OXIDE 400 MG TAB PO SCH (12:00)
[2017-09-15 17:11] VITALS: BP 117/71; PULSE 84; RESP 18; TEMP 97.6; O2SAT 100
[2017-09-15 20:00] VITALS: BP 151/79; PULSE 86; PULSE 87; RESP 18; TEMP 98.5; O2SAT 99
[2017-09-15] MEDS: ATORVASTATIN 40 MG TAB PO SCH (22:28)
[2017-09-16] VITALS (9 sets, daily range): BP systolic 149–170; BP diastolic 84–97; PULSE 72–82; RESP 16–20; TEMP 97.8–98.4; O2SAT 96–99
[2017-09-16] MEDS: INSULIN ASPART SUPPLEMENTAL SCALE SQ SCH ×4 (08:00→21:00)
[2017-09-16] MEDS: LIPASE/PROTEASE/AMYLASE (24,000/76,000/120,000) CAP PO SCH ×3 (08:18→17:12)
[2017-09-16] MEDS: SODIUM CHLORIDE 0.9% FLUSH 10 ML FLUSH IV FLUSH SCH ×2 (08:18→20:58)
[2017-09-16] MEDS: DIGOXIN 0.25 MG TAB PO SCH (08:18)
[2017-09-16] MEDS: ESCITALOPRAM OXALATE 10 MG TAB PO SCH (08:18)
[2017-09-16] MEDS: CHOLESTYRAMINE 4 GM PACKET PO SCH ×2 (08:18→20:57)
[2017-09-16] MEDS: DOXAZOSIN MESYLATE 1 MG TAB PO SCH (08:18)
[2017-09-16] MEDS: CARVEDILOL 12.5 MG TAB PO SCH ×2 (08:18→20:57)
[2017-09-16] MEDS: INSULIN DETEMIR 100 UNITS/ML VIAL SQ SCH (08:18)
[2017-09-16] MEDS: RIFAXIMIN 550 MG TAB PO SCH ×2 (08:18→20:57)
[2017-09-16] MEDS: METHIMAZOLE 5 MG TAB PO SCH (08:18)
[2017-09-16] MEDS: LACTOBACILLUS ACIDOPHILUS TAB PO SCH ×2 (08:18→20:57)
--- NOTE | 2017-09-16 08:18 | HHI.PR ---
Subjective Remarks This is a pleasant 67 y/o male who was admitted on 09/03/17 with Alcohol withdrawal, Nephrology and GI specialist following, alcoholic, HTN, DM II, CAD, Kidney disease, was on Vancomycin due to Staph epidermidis positive, developed acute kidney Injury, has Gastritis and Esophagitis. 09/16: Denies any nausea or vomit. improving Bowel movements for today had One. discussed with nurse Miss Gonsalez he will go for HIDA scan today. okay to discharge from Nephrology specialist standpoint. Objective Vital Signs Date Time Temp Pulse Resp B/P (MAP) Pulse Ox O2 Delivery O2 Flow Rate FiO2 09/16/17 04:00 98.4 80 18 155/87 (109) 96 09/16/17 00:26 98.4 82 18 149/84 (105) 96 09/16/17 00:00 81 09/15/17 22:20 99 Room Air 09/15/17 20:00 87 09/15/17 20:00 98.5 86 18 151/79 (103) 99 09/15/17 17:11 97.6 84 18 117/71 (86) 100 09/15/17 12:00 98.1 80 18 152/80 (104) 98 I/O 09/15/17 09/15/17 09/15/17 09/16/17 09/16/17 09/16/17 07:00 15:00 23:00 07:00 15:00 23:00 Intake Total 1200 ml 480 ml Balance 1200 ml 480 ml Intake Oral 200 ml 480 ml IV Total 1000 ml # Voids 3 2 # Bowel Movements 2 1 Result Diagram: 09/12/17 0320 09/15/17 0553 Imaging Last Impressions Abdomen Ultrasound 09/15/17 0000 Signed Impressions: Service Date/Time: Friday, September 15, 2017 08:24 - CONCLUSION: 1. No diffusely increased hepatic echogenicity without volume loss consistent with hepatic steatosis versus medical liver disease. 2. Small amount of gallbladder sludge with color wall thickening and questionable pericholecystic fluid. These findings are commonly seen in the setting of chronic liver disease but significantly reduce sonographic sensitivity for evaluation of acute cholecystitis. If there is significant clinical concern for acute cholecystitis , HIDA scan may be performed to evaluate for cystic duct patency. Albaro Vaughan MD Abdomen/Pelvis CT 09/11/17 0000 Signed Impressions: Service Date/Time: Monday, September 11, 2017 20:28 - CONCLUSION: No acute CT findings in the abdomen or pelvis. Interval development of tiny bilateral pleural effusions. Stable diffuse hepatic steatosis. Sathya Rachel MD Head CT [id number] Signed Impressions: Service Date/Time: Sunday, September 03, 2017 00:11 - CONCLUSION: No acute intracranial findings Sathya Rachel MD Chest X-Ray [id number] Signed Impressions: Service Date/Time: Saturday, September 02, 2017 22:46 - CONCLUSION: No acute disease. Sathya Rachel MD Procedures None Other Results Laboratory Tests Test 09/02/17 22:45 09/02/17 23:15 09/03/17 07:23 09/03/17 12:16 Activated Partial Thromboplast Time 24.4 SEC Total Creatine Kinase 49 U/L Troponin I LESS THAN 0.02 NG/ML Ethyl Alcohol Level LESS THAN 3 MG/DL Urine Uric Acid Crystals OCC /hpf Urine Hyaline Casts 81 /lpf Urine Granular Casts 5 /lpf Urine Opiates Screen NEG Urine Barbiturates Screen NEG Urine Amphetamines Screen NEG Urine Benzodiazepines Screen NEG Urine Cocaine Screen NEG Urine Cannabinoids Screen NEG Lactic Acid Level 2.2 mmol/L Hemoglobin A1c 7.6 % Hepatitis A IgM Antibody NONREACTIVE Hepatitis B Surface Antigen NONREACTIVE Hepatitis B Core IgM Antibody NONREACTIVE Hepatitis C IgG Antibody NONREACTIVE Test 09/04/17 06:48 09/05/17 06:47 09/05/17 21:21 09/08/17 03:42 Prothrombin Time 12.2 SEC Prothromb Time International Ratio 1.2 RATIO Protein Corrected Calcium 8.1 MG/DL Neutrophils (%) (Auto) 53.0 % Lymphocytes (%) (Auto) 33.9 % Monocytes (%) (Auto) 10.5 % Eosinophils (%) (Auto) 1.8 % Basophils (%) (Auto) 0.8 % Neutrophils # (Auto) 2.6 TH/MM3 Lymphocytes # (Auto) 1.7 TH/MM3 Monocytes # (Auto) 0.5 TH/MM3 Eosinophils # (Auto) 0.1 TH/MM3 Basophils # (Auto) 0.0 TH/MM3 CBC Comment DIFF FINAL Differential Comment Vitamin B12 Level 1350 PG/ML Folate 8.1 NG/ML Erythrocyte Sedimentation Rate 25 mm/hr Rheumatoid Factor Screen NEGATIVE Rheumatoid Factor Titer IU/ML Vancomycin Level Trough 29.0 MCG/ML Test 09/09/17 03:10 09/09/17 13:40 09/11/17 21:15 09/12/17 03:20 Free Thyroxine 1.35 NG/DL Free Triiodothyronine (T3) pg/dL 1.39 PG/ML Thyroid Stimulating Hormone 3rd Gen 2.710 uIU/ML Random Vancomycin Level 27.6 COMMENT Stool C. difficile Toxin (PCR) NEGATIVE Stl C. difficile Toxin Epiderm 027 PRESUMPTIVE NEGATIVE Lipase 27 U/L White Blood Count 6.7 TH/MM3 Red Blood Count 2.77 MIL/MM3 Hemoglobin 9.5 GM/DL Hematocrit 28.9 % Mean Corpuscular Volume 104.3 FL Mean Corpuscular Hemoglobin 34.4 PG Mean Corpuscular Hemoglobin Concent 33.0 % Red Cell Distribution Width 15.8 % Platelet Count 200 TH/MM3 Mean Platelet Volume 9.1 FL Test 09/13/17 09:36 09/14/17 06:10 09/15/17 05:53 Urine Color LIGHT-YELLOW Urine Turbidity CLEAR Urine pH 5.5 Urine Specific [place] 1.006 Urine Protein TRACE mg/dL Urine Glucose (UA) NEG mg/dL Urine Ketones NEG mg/dL Urine Occult Blood TRACE Urine Nitrite NEG Urine Bilirubin NEG Urine Urobilinogen LESS THAN 2.0 MG/DL Urine Leukocyte Esterase NEG Urine RBC 1 /hpf Urine WBC 4 /hpf Urine Squamous Epithelial Cells <1 /hpf Urine Transitional Epithelial Cells <1 /hpf Urine Bacteria RARE /hpf Urine Mucus FEW /lpf Microscopic Urinalysis Comment CULT NOT INDICATED Urine Eosinophils RARE /HPF Urine Osmolality 284 MOSM/KG Urine Random Creatinine 23.2 MG/DL Urine Random Sodium 104 MEQ/L Blood Urea Nitrogen 5 MG/DL 4 MG/DL Creatinine 1.84 MG/DL 1.64 MG/DL Random Glucose 160 MG/DL 118 MG/DL Total Protein 6.3 GM/DL 6.4 GM/DL Albumin 2.0 GM/DL 2.2 GM/DL Calcium Level 8.3 MG/DL 8.3 MG/DL Magnesium Level 1.9 MG/DL Alkaline Phosphatase 259 U/L 282 U/L Aspartate Amino Transf (AST/SGOT) 244 U/L 217 U/L Alanine Aminotransferase (ALT/SGPT) 99 U/L 102 U/L Total Bilirubin 1.1 MG/DL 1.3 MG/DL Sodium Level 143 MEQ/L 144 MEQ/L Potassium Level 5.0 MEQ/L 3.6 MEQ/L Chloride Level 112 MEQ/L 113 MEQ/L Carbon Dioxide Level 21.2 MEQ/L 22.1 MEQ/L Anion Gap 9 MEQ/L Estimat Glomerular Filtration Rate 51 ML/MIN Direct Bilirubin 0.9 MG/DL Indirect Bilirubin 0.4 MG/DL Objective Remarks GENERAL: No acute distress. SKIN: Warm and dry. HEAD: Atraumatic. Normocephalic. EYES: Pupils equal and round. No scleral icterus. No injection or drainage. ENT: No nasal bleeding or discharge. Mucous membranes pink and moist. NECK: Trachea midline. No JVD. CARDIOVASCULAR: Regular rate and rhythm. RESPIRATORY: No accessory muscle use. Clear to auscultation. Breath sounds equal bilaterally. GASTROINTESTINAL: Abdomen soft, non-tender, nondistended. Hepatic and splenic margins not palpable. MUSCULOSKELETAL: Extremities without clubbing, cyanosis, or edema. No obvious deformities. NEUROLOGICAL: Awake and alert. No obvious cranial nerve deficits. Motor grossly within normal limits. Five out of 5 muscle strength in the arms and legs. Normal speech. PSYCHIATRIC: Appropriate mood and affect; insight and judgment normal. Medications and IVs Current Medications Medications (Trade) Dose Ordered Sig/April Route Start Time Stop Time Status Last Admin (Romazicon Inj) 0.2 mg Q1M PRN IV PUSH 09/03/17 01:00 (D50w (Vial) Inj) 50 ml UNSCH PRN IV PUSH 09/03/17 01:15 (Glucagon Inj) 1 mg UNSCH PRN OTHER 09/03/17 01:15 (NovoLOG SUPPLEMENTAL SCALE) 1 ACHS SLIDING SCALE SQ 09/03/17 08:00 Future hold 09/15/17 22:40 (NS Flush) 2 ml UNSCH PRN IV FLUSH 09/03/17 01:15 (NS Flush) 2 ml BID IV FLUSH 09/03/17 09:00 09/15/17 22:29 (Zofran Inj) 4 mg Q6H PRN IVP 09/03/17 01:15 09/10/17 21:42 (Tylenol) 650 mg Q6H PRN PO 09/03/17 01:15 (Roxicodone) 5 mg Q4H PRN PO 09/03/17 01:15 09/16/17 06:26 (Milk Of Magnesia Liq) 30 ml Q12H PRN PO 09/03/17 01:15 (Senokot) 17.2 mg Q12H PRN PO 09/03/17 01:15 (Norvasc) 5 mg DAILY PO 09/03/17 09:00 Future Hold 09/03/17 08:30 (Lipitor) 40 mg HS PO 09/03/17 21:00 09/15/17 22:28 (Coreg) 25 mg BID PO 09/03/17 09:00 Future hold 09/15/17 22:28 (Lanoxin) 0.25 mg DAILY PO 09/03/17 09:00 09/15/17 09:18 (Lexapro) 10 mg DAILY PO 09/03/17 09:00 09/15/17 09:18 (Tapazole) 5 mg DAILY PO 09/09/17 09:00 09/15/17 09:00 (Mag-Ox) 400 mg DAILY@1100 PO 09/09/17 11:00 09/15/17 12:00 (Lactinex) 1 tab Q12HR PO 09/10/17 11:00 09/15/17 22:27 (Prinivil) 10 mg DAILY PO 09/11/17 09:00 Future Hold 09/13/17 09:29 (Creon 24-76-120) 2 cap TID PO 09/11/17 18:00 09/15/17 18:00 (Levemir Inj) 5 units DAILY SQ 09/13/17 09:00 09/14/17 08:28 (Apresoline) 10 mg Q6HR PRN PO 09/13/17 12:00 (Xifaxan) 550 mg BID PO 09/13/17 21:00 09/15/17 22:27 (Questran 4 Gm Pkt) 4 gm Q12HR PO 09/13/17 21:00 09/15/17 22:27 (Cardura) 1 mg DAILY PO 09/14/17 12:00 09/15/17 09:18 Sodium Chloride 1,000 ml @ 100 mls/hr Q10H IV 09/15/17 11:00 09/15/17 22:29 A/P Assessment and Plan 67 years old male S. epidermidis bacteremia- repeat blood cultures. - so far no growth Rocephin 09/08 - give total 10 days course off antibiotics Diarrhea-slowly improving today had one BM Colonoscopy and C diff and repeat CT abdomen pelvis- negative lactinex bid GI following, on trial of creon, Xifaxan and cholestyramine. asked for HIDA scan for today. TALON- mild improvement finally since yesterday- non oliguric I will switch IV fluids from KCl to normal saline Lisinopril on hold, added hydralazine prn. Improving today Creatinine 1.64 Macrocytic anemia S/P colonoscopy- internal hemorrhoids B12, folate level= normal PPI. no NSAIds S/P EGD- Esophagitis UTI- s/p received 3 days Bactrim - asymptomatic Suspecting BPH: doxazosin. Pt to f/u w urology as an outpatient Alcoholic hepatitis - Elevated LFTs: admits to alcohol abuse. ff LFT trend- down trend CT of abdomen - unremarkable Alcohol Abuse- no DTs. S/P Librium course, strongly recommended to stop drinking behavior. DM: Sliding scale w/ Accu-Cheks. trending down - per patient on Lantus and Humalog- liklely non compliant A1C 7.6 Dietitian consult. diabetes reinforcement/teaching patient complains of poor po appetite- d/w him that due to alcoholism - poor po on levemer 5 units qAM . Adjusts slowly. History of CAD/CMP- not in clinical failure- EF good on coreg/digoxin/Amlodipine/Lisinopril as OP on coreg 25 mg po bid continue on digoxin off Lisinopril at 10 mg due to worsening Cr - ff creatinine and K level Echo done with good EF 55% will not restart his lasix of 40 mg from home- caution chronic hyperthyroidism Methimazole at 5 mg daily. (at home was on 10 mg ) TSH 6.4 Deconditioning- PT following and recommends home health DVT Prophylaxis: SCD/Teds Discharge Planning [place] to discharge from Nephrology specialist standpoint, awaiting for GI specialist for discharge tomorrow awaiting for HIDA scan. Jc Yan MD September 16, 2017 08:18
[2017-09-16] MEDS: SODIUM CHLOR 0.9% 1000 ML INJ 1,000 ML IV SCH ×3 (08:19→21:00)
[2017-09-16] MEDS: MAGNESIUM OXIDE 400 MG TAB PO SCH (14:21)
--- NOTE | 2017-09-16 14:44 | RADRPT ---
EXAM DATE/TIME: 09/16/2017 11:45 [facility] COMPARISON: No previous studies available for comparison. INDICATIONS : Abdomen pain. DOSE: 4.2 mCi Tc99m Mebrofenin IV MEDICATION: 1.69 mcg Cholecystokinin IV; No symptomatic response. Cholecystokinin was administered by slow infusion over 8 minutes beginning at 64 minutes. MEDICAL HISTORY : Diabetes mellitus type 2. Hypertension. ETOH Use. SURGICAL HISTORY : None. ENCOUNTER: Initial ACUITY: 1 day PAIN SCALE: 0/10 LOCATION: Bilateral upper quadrant TECHNIQUE: Following the intravenous administration of radiotracer, dynamic sequential image were performed with continuous acquisition. Time-activity curves were generated. FINDINGS: HEPATIC KINETICS: There is prompt uptake of radiotracer in the liver. No focal defects are seen. There is normal rate of washout from the hepatic parenchyma. BILIARY CLEARANCE: Activity is first seen in the extrahepatic biliary system at 10 minutes. There is normal excretion i nto the small bowel. GALLBLADDER: Activity is first seen in the gallbladder at 15 minutes. POST CHOLECYSTOKININ: After Cholecystokinin administration, there is no clearance of activity from the gallbladder. Common bile duct kinetics are normal and there is no evidence of biliary obstruction. BILIARY ENTERIC REFLUX: None observed. CLINICAL: The patient was asymptomatic after Cholecystokinin administration. CONCLUSION: 1. No demonstrable clearance of activity from the gallbladder prior to and following administration o f CCK (EF is therefore not calculable). Patient was asymptomatic during CCK demonstration. 2. No evidence for hepatocellular dysfunction or biliary ductal obstruction. Albaro Vaughan MD on September 16, 2017 at 14:39 Board Certified Radiologist. This report was verified electronically.
--- NOTE | 2017-09-16 16:33 | HHI.NPPN ---
Subjective Renal Failure: Acute History of Present Illness This is a 67-year-old male with a past medical history of alcoholism, history of hypertension, diabetes mellitus, ischemic heart disease, was admitted because of generalized weakness and alcohol withdrawal.Nephrology was called to see the patient because of elevated BUN and creatinine. The patient has creatinine of 1.1 on admission, which decreased to 0.6-0.7 and then it started going up for the last 5 days gradually to 1.2-1.5 now. The patient denies any previous history of renal disease. He has some nausea and decreased appetite and has loose bowel motion. The patient was found to have blood culture positive of Staph epidermidis and he is currently getting ceftriaxone and he was on vancomycin, but it was stopped on 09/08/2017. At that time, his vancomycin trough level was 29. Patient has been following with the GI and he has elevated liver enzymes, mainly because of alcoholism and he had endoscopy which shows that he has gastritis and esophagitis. Additional Remarks No acute complaints, diarrhea improving. Review of Systems Respiratory Respiratory Remarks Denies any shortness of breath Cardiovascular Cardiac Remarks Denies any chest pain Gastrointestinal Gastrointestinal: Diarrhea Objective Data Data Vital Signs Date Time Temp Pulse Resp B/P (MAP) Pulse Ox O2 Delivery O2 Flow Rate FiO2 09/16/17 12:00 97.8 77 20 170/91 (117) 98 09/16/17 08:00 98.3 79 18 155/84 (107) 96 09/16/17 04:00 98.4 80 18 155/87 (109) 96 09/16/17 00:26 98.4 82 18 149/84 (105) 96 09/16/17 00:00 81 09/15/17 22:20 99 Room Air 09/15/17 20:00 87 09/15/17 20:00 98.5 86 18 151/79 (103) 99 09/15/17 17:11 97.6 84 18 117/71 (86) 100 -: 09/12/17 0320 09/15/17 0553 Physical Exam General Appearance: No Acute Distress, Comfortable Throat Throat Exam: Oral Mucosa [place] & Moist Pulmonary Resp Exam: Breath Sounds Equal, No Distress Cardiology CV Exam: Normal Sinus Rhythm Gastrointestinal/Abdomen GI Exam: Soft, Non-Tender, Bowel Sounds Present Genitourinary Exam: Flank Non-Tender Integumentary Skin Exam: Clear, Warm, Dry Extremeties Extremities Exam: Trace Edema Neurologic Neuro Exam: Alert, Awake, Oriented Psychiatric Psych Exam: Appropriate Responses Assessment/Plan Discussed Condition With: Patient Assessment Summary: TALON/Acute Renal Failure Problem List: (1) Acute kidney injury ICD Codes: N17.9 - Acute kidney failure, unspecified Plan: Acute kidney injury the patient has creatinine of 1.1 on admission, which decreased to 0.6-0.7 and then it started going up for the last 5 days gradually to 1.2-1.5 now. Differential diagnosis will be ATN, either from the infection or the possibility of vancomycin related toxicity. The patient has been nonoliguric. CT of abdomen with kidney with normal in size and shape. There is no mass, stone, or hydronephrosis. Proteinuria noted FeNa at 5.1% suggestive of ATN Plan Creatinine improved at 1.64 yesterday from 1.84 No new labs today Non oliguric Lisinopril on hold. Continue IV fluid Avoid nephrotoxins Fluids encouraged Continues to have loose stools but improving. Will follow urinary output and BMP. Stable for d/c from renal standpoint, renal function stable. Can check AM labs if here in AM. (2) Elevated LFTs ICD Codes: R79.89 - Other specified abnormal findings of blood chemistry Plan: GI consulted and managing (3) DM (diabetes mellitus) ICD Codes: E11.9 - Type 2 diabetes mellitus without complications Plan: Maintain blood sugars between 140 mg/dl to 180 mg/dl (4) Hypertension ICD Codes: I10 - Essential (primary) hypertension Plan: continue medication well controlled Brad Gordon MD September 16, 2017 16:33
[2017-09-16] MEDS: ATORVASTATIN 40 MG TAB PO SCH (20:58)
[2017-09-17] VITALS (9 sets, daily range): BP systolic 145–170; BP diastolic 74–88; PULSE 74–81; RESP 16–18; TEMP 98.2–98.5; O2SAT 95–99
[2017-09-17 07:31] LABS: AUTOMATED NEUTROPHIL # 5.9 TH/MM3 (1.8-7.7); BASOPHIL # 0.1 TH/MM3 (0-0.2); BASOPHIL % 0.9 % (0.0-2.0); EOSINOPHIL # 0.2 TH/MM3 (0-0.4); EOSINOPHIL % 1.9 % (0.0-4.0); HEMATOCRIT 28.8 % (39.0-51.0); HEMOGLOBIN 9.7 GM/DL (13.0-17.0); LYMPH % 16.9 % (9.0-44.0); LYMPHOCYTE # 1.5 TH/MM3 (1.0-4.8); MEAN CELL VOLUME 101.1 FL (80.0-100.0); MEAN CORPUSCULAR HEMOGLOBIN 34.2 PG (27.0-34.0); MEAN CORPUSCULAR HGB CONC 33.9 % (32.0-36.0); MEAN PLATELET VOLUME 8.8 FL (7.0-11.0); MONO % 13.4 % (0.0-8.0); MONOCYTE # 1.2 TH/MM3 (0-0.9); NEUT % 66.9 % (16.0-70.0); PLATELET COUNT 219 TH/MM3 (150-450); RED BLOOD COUNT 2.85 MIL/MM3 (4.50-5.90); RED CELL DISTRIBUTION WIDTH 15.8 % (11.6-17.2); WHITE BLOOD COUNT 8.7 TH/MM3 (4.0-11.0)
[2017-09-17 07:34] LABS: BICARBONATE 21.9 MEQ/L (21.0-32.0); CREATININE 1.37 MG/DL (0.60-1.30)
[2017-09-17] MEDS: INSULIN ASPART SUPPLEMENTAL SCALE SQ SCH ×4 (08:00→20:51)
[2017-09-17] MEDS: CARVEDILOL 12.5 MG TAB PO SCH ×2 (08:37→20:39)
[2017-09-17] MEDS: CHOLESTYRAMINE 4 GM PACKET PO SCH ×2 (08:37→20:39)
[2017-09-17] MEDS: METHIMAZOLE 5 MG TAB PO SCH (08:37)
[2017-09-17] MEDS: RIFAXIMIN 550 MG TAB PO SCH ×2 (08:37→20:39)
[2017-09-17] MEDS: LACTOBACILLUS ACIDOPHILUS TAB PO SCH ×2 (08:37→20:39)
[2017-09-17] MEDS: DIGOXIN 0.25 MG TAB PO SCH (08:37)
[2017-09-17] MEDS: LIPASE/PROTEASE/AMYLASE (24,000/76,000/120,000) CAP PO SCH ×3 (08:37→17:12)
[2017-09-17] MEDS: ESCITALOPRAM OXALATE 10 MG TAB PO SCH (08:37)
[2017-09-17] MEDS: DOXAZOSIN MESYLATE 1 MG TAB PO SCH (08:37)
[2017-09-17] MEDS: SODIUM CHLORIDE 0.9% FLUSH 10 ML FLUSH IV FLUSH SCH ×2 (08:38→20:39)
[2017-09-17] MEDS: INSULIN DETEMIR 100 UNITS/ML VIAL SQ SCH (08:40)
[2017-09-17] MEDS ORDERED: POTASSIUM CHLORIDE 20 MEQ CONTROLLED RELEASE TAB PO ONE (08:45)
--- NOTE | 2017-09-17 09:48 | HHI.PR ---
Subjective Remarks This is a pleasant 67 y/o male who was admitted on 09/03/17 with Alcohol withdrawal, Nephrology and GI specialist following, alcoholic, HTN, DM II, CAD, Kidney disease, was on Vancomycin due to Staph epidermidis positive, developed acute kidney Injury, has Gastritis and Esophagitis. 09/16: Denies any nausea or vomit. improving Bowel movements for today had One. discussed with nurse Miss Gonsalez he will go for HIDA scan today. okay to discharge from Nephrology specialist standpoint. 09/17: Stable in his bedroom, as per PT will go home on HHC, as per Nephrology specialist okay to discharge home, improving condition, had one BM this 24 hours, he wants to go home, discussed with nurse Miss Gonsalez, no nausea, vomit or diarrhea will discuss with GI for clearance for discharge. Objective Vital Signs Date Time Temp Pulse Resp B/P (MAP) Pulse Ox O2 Delivery O2 Flow Rate FiO2 09/17/17 08:00 98.2 80 18 170/87 (114) 95 09/17/17 04:00 98.2 79 16 161/85 (110) 99 09/17/17 03:58 80 09/17/17 00:00 98.5 77 16 148/79 (102) 97 09/16/17 23:57 79 09/16/17 20:00 98.1 77 16 155/85 (108) 99 09/16/17 19:03 82 09/16/17 16:00 98.0 72 20 167/97 (120) 98 09/16/17 12:00 97.8 77 20 170/91 (117) 98 I/O 09/16/17 09/16/17 09/16/17 09/17/17 09/17/17 09/17/17 07:00 15:00 23:00 07:00 15:00 23:00 Intake Total 480 ml 1800 ml 781 ml Output Total 700 ml 650 ml Balance 480 ml 1100 ml 131 ml Intake Oral 480 ml 800 ml IV Total 1000 ml 781 ml Output Urine Total 700 ml 650 ml # Voids 2 # Bowel Movements 1 0 1 Result Diagram: 09/17/17 0624 09/17/17 0624 Imaging Last Impressions Hepatobiliary Scan Nuclear Medicine 09/16/17 0000 Signed Impressions: Service Date/Time: Saturday, September 16, 2017 11:45 - CONCLUSION: 1. No demonstrable clearance of activity from the gallbladder prior to and following administration of CCK (EF is therefore not calculable). Patient was asymptomatic during CCK demonstration. 2. No evidence for hepatocellular dysfunction or biliary ductal obstruction. Albaro Vaughan MD Abdomen Ultrasound 09/15/17 0000 Signed Impressions: Service Date/Time: Friday, September 15, 2017 08:24 - CONCLUSION: 1. No diffusely increased hepatic echogenicity without volume loss consistent with hepatic steatosis versus medical liver disease. 2. Small amount of gallbladder sludge with color wall thickening and questionable pericholecystic fluid. These findings are commonly seen in the setting of chronic liver disease but significantly reduce sonographic sensitivity for evaluation of acute cholecystitis. If there is significant clinical concern for acute cholecystitis , HIDA scan may be performed to evaluate for cystic duct patency. Albaro Vaughan MD Abdomen/Pelvis CT 09/11/17 0000 Signed Impressions: Service Date/Time: Monday, September 11, 2017 20:28 - CONCLUSION: No acute CT findings in the abdomen or pelvis. Interval development of tiny bilateral pleural effusions. Stable diffuse hepatic steatosis. Sathya Rachel MD Head CT 09/02/172232 Signed Impressions: Service Date/Time: Sunday, September 03, 2017 00:11 - CONCLUSION: No acute intracranial findings Sathya Rachel MD Chest X-Ray 09/02/172232 Signed Impressions: Service Date/Time: Saturday, September 02, 2017 22:46 - CONCLUSION: No acute disease. Sathya Rachel MD Procedures None Other Results Laboratory Tests Test 09/02/17 22:45 09/02/17 23:15 09/03/17 07:23 09/03/17 12:16 Activated Partial Thromboplast Time 24.4 SEC Total Creatine Kinase 49 U/L Troponin I LESS THAN 0.02 NG/ML Ethyl Alcohol Level LESS THAN 3 MG/DL Urine Uric Acid Crystals OCC /hpf Urine Hyaline Casts 81 /lpf Urine Granular Casts 5 /lpf Urine Opiates Screen NEG Urine Barbiturates Screen NEG Urine Amphetamines Screen NEG Urine Benzodiazepines Screen NEG Urine Cocaine Screen NEG Urine Cannabinoids Screen NEG Lactic Acid Level 2.2 mmol/L Hemoglobin A1c 7.6 % Hepatitis A IgM Antibody NONREACTIVE Hepatitis B Surface Antigen NONREACTIVE Hepatitis B Core IgM Antibody NONREACTIVE Hepatitis C IgG Antibody NONREACTIVE Test 09/04/17 06:48 09/05/17 06:47 09/05/17 21:21 09/08/17 03:42 Prothrombin Time 12.2 SEC Prothromb Time International Ratio 1.2 RATIO Protein Corrected Calcium 8.1 MG/DL Vitamin B12 Level 1350 PG/ML Folate 8.1 NG/ML Erythrocyte Sedimentation Rate 25 mm/hr Rheumatoid Factor Screen NEGATIVE Rheumatoid Factor Titer IU/ML Vancomycin Level Trough 29.0 MCG/ML Test 09/09/17 03:10 09/09/17 13:40 09/11/17 21:15 09/13/17 09:36 Free Thyroxine 1.35 NG/DL Free Triiodothyronine (T3) pg/dL 1.39 PG/ML Thyroid Stimulating Hormone 3rd Gen 2.710 uIU/ML Random Vancomycin Level 27.6 COMMENT Stool C. difficile Toxin (PCR) NEGATIVE Stl C. difficile Toxin Epiderm 027 PRESUMPTIVE NEGATIVE Lipase 27 U/L Urine Color LIGHT-YELLOW Urine Turbidity CLEAR Urine pH 5.5 Urine Specific Sims 1.006 Urine Protein TRACE mg/dL Urine Glucose (UA) NEG mg/dL Urine Ketones NEG mg/dL Urine Occult Blood TRACE Urine Nitrite NEG Urine Bilirubin NEG Urine Urobilinogen LESS THAN 2.0 MG/DL Urine Leukocyte Esterase NEG Urine RBC 1 /hpf Urine WBC 4 /hpf Urine Squamous Epithelial Cells <1 /hpf Urine Transitional Epithelial Cells <1 /hpf Urine Bacteria RARE /hpf Urine Mucus FEW /lpf Microscopic Urinalysis Comment CULT NOT INDICATED Urine Eosinophils RARE /HPF Urine Osmolality 284 MOSM/KG Urine Random Creatinine 23.2 MG/DL Urine Random Sodium 104 MEQ/L Test 09/14/17 06:10 09/15/17 05:53 09/17/17 06:24 Blood Urea Nitrogen 5 MG/DL 4 MG/DL Creatinine 1.84 MG/DL 1.37 MG/DL Random Glucose 160 MG/DL 85 MG/DL Total Protein 6.3 GM/DL 6.4 GM/DL Albumin 2.0 GM/DL 2.2 GM/DL Calcium Level 8.3 MG/DL 8.0 MG/DL Magnesium Level 1.9 MG/DL Alkaline Phosphatase 259 U/L 282 U/L Aspartate Amino Transf (AST/SGOT) 244 U/L 217 U/L Alanine Aminotransferase (ALT/SGPT) 99 U/L 102 U/L Total Bilirubin 1.1 MG/DL 1.3 MG/DL Sodium Level 143 MEQ/L 146 MEQ/L Potassium Level 5.0 MEQ/L 3.1 MEQ/L Chloride Level 112 MEQ/L 114 MEQ/L Carbon Dioxide Level 21.2 MEQ/L 21.9 MEQ/L Direct Bilirubin 0.9 MG/DL Indirect Bilirubin 0.4 MG/DL White Blood Count 8.7 TH/MM3 Red Blood Count 2.85 MIL/MM3 Hemoglobin 9.7 GM/DL Hematocrit 28.8 % Mean Corpuscular Volume 101.1 FL Mean Corpuscular Hemoglobin 34.2 PG Mean Corpuscular Hemoglobin Concent 33.9 % Red Cell Distribution Width 15.8 % Platelet Count 219 TH/MM3 Mean Platelet Volume 8.8 FL Neutrophils (%) (Auto) 66.9 % Lymphocytes (%) (Auto) 16.9 % Monocytes (%) (Auto) 13.4 % Eosinophils (%) (Auto) 1.9 % Basophils (%) (Auto) 0.9 % Neutrophils # (Auto) 5.9 TH/MM3 Lymphocytes # (Auto) 1.5 TH/MM3 Monocytes # (Auto) 1.2 TH/MM3 Eosinophils # (Auto) 0.2 TH/MM3 Basophils # (Auto) 0.1 TH/MM3 CBC Comment DIFF FINAL Differential Comment Anion Gap 10 MEQ/L Estimat Glomerular Filtration Rate 63 ML/MIN Objective Remarks GENERAL: No acute distress. SKIN: Warm and dry. HEAD: Atraumatic. Normocephalic. EYES: Pupils equal and round. No scleral icterus. No injection or drainage. ENT: No nasal bleeding or discharge. Mucous membranes pink and moist. NECK: Trachea midline. No JVD. CARDIOVASCULAR: Regular rate and rhythm. RESPIRATORY: No accessory muscle use. Clear to auscultation. Breath sounds equal bilaterally. GASTROINTESTINAL: Abdomen soft, non-tender, nondistended. Hepatic and splenic margins not palpable. MUSCULOSKELETAL: Extremities without clubbing, cyanosis, or edema. No obvious deformities. NEUROLOGICAL: Awake and alert. No obvious cranial nerve deficits. Motor grossly within normal limits. Five out of 5 muscle strength in the arms and legs. Normal speech. PSYCHIATRIC: Appropriate mood and affect; insight and judgment normal. Medications and IVs Current Medications Medications (Trade) Dose Ordered Sig/April Route Start Time Stop Time Status Last Admin (Romazicon Inj) 0.2 mg Q1M PRN IV PUSH 09/03/17 01:00 (D50w (Vial) Inj) 50 ml UNSCH PRN IV PUSH 09/03/17 01:15 (Glucagon Inj) 1 mg UNSCH PRN OTHER 09/03/17 01:15 (NovoLOG SUPPLEMENTAL SCALE) 1 ACHS SLIDING SCALE SQ 09/03/17 08:00 Future hold 09/15/17 22:40 (NS Flush) 2 ml UNSCH PRN IV FLUSH 09/03/17 01:15 (NS Flush) 2 ml BID IV FLUSH 09/03/17 09:00 09/15/17 22:29 (Zofran Inj) 4 mg Q6H PRN IVP 09/03/17 01:15 09/10/17 21:42 (Tylenol) 650 mg Q6H PRN PO 09/03/17 01:15 (Roxicodone) 5 mg Q4H PRN PO 09/03/17 01:15 09/16/17 06:26 (Milk Of Magnannamarie Liq) 30 ml Q12H PRN PO 09/03/17 01:15 (Senokot) 17.2 mg Q12H PRN PO 09/03/17 01:15 (Norvasc) 5 mg DAILY PO 09/03/17 09:00 Future Hold 09/03/17 08:30 (Lipitor) 40 mg HS PO 09/03/17 21:00 09/16/17 20:58 (Coreg) 25 mg BID PO 09/03/17 09:00 Future hold 09/17/17 08:37 (Lanoxin) 0.25 mg DAILY PO 09/03/17 09:00 09/17/17 08:37 (Lexapro) 10 mg DAILY PO 09/03/17 09:00 09/17/17 08:37 (Tapazole) 5 mg DAILY PO 09/09/17 09:00 09/17/17 08:37 (Mag-Ox) 400 mg DAILY@1100 PO 09/09/17 11:00 09/16/17 14:21 (Lactinex) 1 tab Q12HR PO 09/10/17 11:00 09/17/17 08:37 (Prinivil) 10 mg DAILY PO 09/11/17 09:00 Future Hold 09/13/17 09:29 (Creon 24-76-120) 2 cap TID PO 09/11/17 18:00 09/17/17 08:37 (Levemir Inj) 5 units DAILY SQ 09/13/17 09:00 09/16/17 08:18 (Apresoline) 10 mg Q6HR PRN PO 09/13/17 12:00 (Xifaxan) 550 mg BID PO 09/13/17 21:00 09/17/17 08:37 (Questran 4 Gm Pkt) 4 gm Q12HR PO 09/13/17 21:00 09/17/17 08:37 (Cardura) 1 mg DAILY PO 09/14/17 12:00 09/17/17 08:37 Sodium Chloride 1,000 ml @ 100 mls/hr Q10H IV 09/15/17 11:00 09/16/17 21:00 A/P Assessment and Plan 67 years old male S. epidermidis bacteremia- repeat blood cultures. - so far no growth Rocephin 09/08 - give total 10 days course off antibiotics Diarrhea-slowly improving today had one BM Colonoscopy and C diff and repeat CT abdomen pelvis- negative lactinex bid GI following, on trial of creon, Xifaxan and cholestyramine. HIDA scan not able to get EF awaiting final by GI specialist [facility]- mild improvement finally since yesterday- non oliguric I will switch IV fluids from KCl to normal saline Lisinopril on hold, added hydralazine prn. Improving today Creatinine 1.64 Macrocytic anemia S/P colonoscopy- internal hemorrhoids B12, folate level= normal PPI. no NSAIds S/P EGD- Esophagitis UTI- s/p received 3 days Bactrim - asymptomatic Suspecting BPH: doxazosin. Pt to f/u w urology as an outpatient Alcoholic hepatitis - Elevated LFTs: admits to alcohol abuse. ff LFT trend- down trend CT of abdomen - unremarkable Alcohol Abuse- no DTs. S/P Librium course, strongly recommended to stop drinking behavior. DM: Sliding scale w/ Accu-Cheks. trending down - per patient on Lantus and Humalog- liklely non compliant A1C 7.6 Dietitian consult. diabetes reinforcement/teaching patient complains of poor po appetite- d/w him that due to alcoholism - poor po on levemer 5 units qAM . Adjusts slowly. History of CAD/CMP- not in clinical failure- EF good on coreg/digoxin/Amlodipine/Lisinopril as OP on coreg 25 mg po bid continue on digoxin off Lisinopril at 10 mg due to worsening Cr - ff creatinine and K level Echo done with good EF 55% will not restart his lasix of 40 mg from home- caution chronic hyperthyroidism Methimazole at 5 mg daily. (at home was on 10 mg ) TSH 6.4 Deconditioning- PT following and recommends home health DVT Prophylaxis: SCD/Teds Discharge Planning [place] to discharge from Nephrology specialist standpoint, awaiting for GI specialist for discharge later today. Jc Yan MD September 17, 2017 09:48
[2017-09-17] MEDS: SODIUM CHLOR 0.9% 1000 ML INJ 1,000 ML IV SCH ×2 (11:33→23:44)
[2017-09-17] MEDS: MAGNESIUM OXIDE 400 MG TAB PO SCH (11:33)
--- NOTE | 2017-09-17 15:16 | HHI.GIFU ---
Subjective Remarks Pt is resting in bed, having some vomiting but his main concern is the diarrhea , states he is having a loose BMs approx. every 45 mint. not able to get any rest . Today he started having some mid abd aches, no hematochezia or melena. According to nurse, pt only had one bm today and more on the soft side, no frequent loose stools noted by nurse. When pt when re- questioned he admits to going once today, he just feels the urge to go. (Florencia Tello) Objective Vitals I&O Vital Signs Date Time Temp Pulse Resp B/P (MAP) Pulse Ox O2 Delivery O2 Flow Rate FiO2 09/17/17 12:00 98.4 81 18 152/81 (104) 97 09/17/17 08:00 98.2 80 18 170/87 (114) 95 09/17/17 04:00 98.2 79 16 161/85 (110) 99 09/17/17 03:58 80 09/17/17 00:00 98.5 77 16 148/79 (102) 97 09/16/17 23:57 79 09/16/17 20:00 98.1 77 16 155/85 (108) 99 09/16/17 19:03 82 09/16/17 16:00 98.0 72 20 167/97 (120) 98 I/O 09/16/17 09/16/17 09/16/17 09/17/17 09/17/17 09/17/17 07:00 15:00 23:00 07:00 15:00 23:00 Intake Total 480 ml 1800 ml 781 ml Output Total 700 ml 650 ml Balance 480 ml 1100 ml 131 ml Intake Oral 480 ml 800 ml IV Total 1000 ml 781 ml Output Urine Total 700 ml 650 ml # Voids 2 # Bowel Movements 1 0 1 Laboratory Laboratory Tests Test 09/17/17 06:24 White Blood Count 8.7 Red Blood Count 2.85 Hemoglobin 9.7 Hematocrit 28.8 Mean Corpuscular Volume 101.1 Mean Corpuscular Hemoglobin 34.2 Mean Corpuscular Hemoglobin Concent 33.9 Red Cell Distribution Width 15.8 Platelet Count 219 Mean Platelet Volume 8.8 Neutrophils (%) (Auto) 66.9 Lymphocytes (%) (Auto) 16.9 Monocytes (%) (Auto) 13.4 Eosinophils (%) (Auto) 1.9 Basophils (%) (Auto) 0.9 Neutrophils # (Auto) 5.9 Lymphocytes # (Auto) 1.5 Monocytes # (Auto) 1.2 Eosinophils # (Auto) 0.2 Basophils # (Auto) 0.1 CBC Comment DIFF FINAL Differential Comment Blood Urea Nitrogen 4 Creatinine 1.37 Random Glucose 85 Calcium Level 8.0 Sodium Level 146 Potassium Level 3.1 Chloride Level 114 Carbon Dioxide Level 21.9 Anion Gap 10 Estimat Glomerular Filtration Rate 63 Date/Time Source Procedure Growth Status 09/04/17 11:53 Blood Peripheral Aerobic Blood Culture - Final NO GROWTH IN 5 DAYS Complete 09/04/17 11:53 Blood Peripheral Anaerobic Blood Culture - Final NO GROWTH IN 5 DAYS Complete Imaging Last Impressions Hepatobiliary Scan Nuclear Medicine 09/16/17 0000 Signed Impressions: Service Date/Time: Saturday, September 16, 2017 11:45 - CONCLUSION: 1. No demonstrable clearance of activity from the gallbladder prior to and following administration of CCK (EF is therefore not calculable). Patient was asymptomatic during CCK demonstration. 2. No evidence for hepatocellular dysfunction or biliary ductal obstruction. Albaro Vaughan MD Abdomen Ultrasound 09/15/17 0000 Signed Impressions: Service Date/Time: Friday, September 15, 2017 08:24 - CONCLUSION: 1. No diffusely increased hepatic echogenicity without volume loss consistent with hepatic steatosis versus medical liver disease. 2. Small amount of gallbladder sludge with color wall thickening and questionable pericholecystic fluid. These findings are commonly seen in the setting of chronic liver disease but significantly reduce sonographic sensitivity for evaluation of acute cholecystitis. If there is significant clinical concern for acute cholecystitis , HIDA scan may be performed to evaluate for cystic duct patency. Albaro Vaughan MD Abdomen/Pelvis CT 09/11/17 0000 Signed Impressions: Service Date/Time: Monday, September 11, 2017 20:28 - CONCLUSION: No acute CT findings in the abdomen or pelvis. Interval development of tiny bilateral pleural effusions. Stable diffuse hepatic steatosis. Sathya Rachel MD Head CT 09/02/172232 Signed Impressions: Service Date/Time: Sunday, September 03, 2017 00:11 - CONCLUSION: No acute intracranial findings Sathya Rachel MD Chest X-Ray 09/02/172232 Signed Impressions: Service Date/Time: Saturday, September 02, 2017 22:46 - CONCLUSION: No acute disease. Sathya Rachel MD Physical Exam HEENT: Normocephalic; atraumatic CHEST: Even/unlabored CARDIAC: RRR ABDOMEN: Soft, nondistended, diffuse tenderness; bowel sounds active EXTREMITIES: No clubbing, cyanosis, or edema. SKIN: Normal; no rash; no jaundice. ELECTION JUDGE: No focal deficits; alert and oriented times three. (Omer,Florencia UTILITY TECHNICIAN) Assessment and Plan Plan Assessment: - Projectile vomiting- reports of nausea and vomiting for the past 3-4 weeks with some episodes of hematemesis preceded by extreme retching. Associated epigastric pain, acid reflux, and heartburn. CT abdomen and pelvis W IV contrast (09/03) --> No acute findings. Liver: Severely diminished hepatic attenuation likely reflecting steatosis. No focal mass. No biliary ductal dilatation. - ETOH abuse- reports drinking 1 gallon of vodka a week for multiple years- denies previous diagnosis of liver issues. - Transaminitis likely secondary to ETOH DF- 4 no indication for steroids LFTs currently: AST-307 ALT-112 T bili-3.9 Alk phos-285 No thrombocytopenia, coagulopathy. Mild hypoalbuminemia - Diarrhea- reports of diarrhea for the past 3-4 weeks with some episodes of hematochezia. Associated fecal urgency and incontinence. Family history of colon cancer. Has never had EGD or colonoscopy. - Weight loss- unsure of how much over what period of time. Family history significant for colon cancer, father. (09/05) EGD --> Class A esophagitis, erythematous gastritis, duodenal inflammation in the bulb and second portion of the duodenum. Pathology (duodenal bulb) without significant histologic abnormality (stomach, antrum) minimally active chronic gastritis with intestinal metaplasia, no H. Pylori (esophagus, distal) without significant histopathologic abnormality. Pt reports some nausea today, no emesis. Initially colonoscopy was held and only EGD was done because pt would not have tolerated the prep and was unable to get to the bathroom (syncopal episode on the toilet day of initial consult) Now pt seems able to tolerate Mag Citrate prep and he is agreeable to colonoscopy. LFTs trending down, hepatitis panel negative. (09/07) Pt reports diarrhea seems to be improving. Denies any continued nausea or vomiting. Colonoscopy --> Moderate diverticulosis in the sigmoid colon. Internal and external hemorrhoids. LFTs trending down. Reconsult for Diarrhea on 09/11 C. diff negative, stool culture was never sent, ordered during initial consult Of note, pt on Magnesium Oxide. (09/13) Pt complaining of continued diarrhea, states with some episodes of incontinence. Has been on Creon for two days. Also has poor appetite, states has been trying to take the Glucerna shakes but does not like the taste of them when they are warm (09/14) Pt reports some improvement of diarrhea but continues to have multiple BMs. Also complaining of abdominal pain. Increase in LFTs noted today, they had been trending down since admission. ? secondary to medication. US abdomen ordered. (09/15) Pt reports some continued improvement in diarrhea, last BM at 4 AM. No repeat LFTs today. Abdominal US done, report pending. (09/17)Pt with persistent diarrhea- Unclear etiology- According to nurse, pt only had one bm today and more on the soft side, no frequent loose stools noted by nurse. Pt states having some vomiting but his main concern is the diarrhea, states he is having a loose BM approx. every 45 mint. not able to get any rest, however, when re- questioned he admits to going once today, he just feels the urge to go. Today he started having some mid abd aches, no hematochezia or melena US 09/15 showed fatty liver, small amount of gall bladder sludge with color wall thickening and questionable pericholecystic fluid HIDA 09/16 No evidence for hepatocellular dysfunction or biliary ductal obstructions, EF no calculated, no clearance of activity from the gall bladder prior to and following administration of CCK Pt has been on Creon and cholestyramine and Xifaxan Plan: GERALD Continue Creon Cholestyramine Xifaxan LFTs Consider repeat colonoscopy with bx, this could be done as an op if diarrhea continues F/u with GI in 2 weeks Pt has been seen and examined by myself and Dr. Leija and myself and this note is on her behalf (Florencia Tello) Physician Comments seen, examined agree with rodriguez arredondo scan noted-we will consult surgery MRA r/o mesenteric ischemia add Lactaid to meals -pt lactose intolerant (Kelli Leija MD) Florencia Tello [facility] September 17, 2017 15:16 Kelli Leija MD September 17, 2017 16:29
[2017-09-17 17:24] LABS: DIRECT BILIRUBIN ADULT 0.9 MG/DL (0.0-0.2)
[2017-09-17 17:25] LABS: INDIRECT BILIRUBIN 0.5 MG/DL (0.0-0.8); TOTAL BILIRUBIN ADULT 1.4 MG/DL (0.2-1.0)
[2017-09-17] MEDS: ATORVASTATIN 40 MG TAB PO SCH (20:39)
[2017-09-17] MEDS: PSYLLIUM HUSK SF 3.4 GM in 5.8 GM PKT PO SCH (20:43)
[2017-09-18] VITALS (7 sets, daily range): BP systolic 147–168; BP diastolic 79–88; PULSE 63–79; RESP 18–20; TEMP 97.2–98.9; O2SAT 95–99
[2017-09-18] MEDS: INSULIN ASPART SUPPLEMENTAL SCALE SQ SCH ×4 (08:00→21:00)
[2017-09-18 08:08] LABS: AUTOMATED NEUTROPHIL # 5.4 TH/MM3 (1.8-7.7); BASOPHIL % 0.6 % (0.0-2.0); EOSINOPHIL # 0.2 TH/MM3 (0-0.4); HEMOGLOBIN 11.2 GM/DL (13.0-17.0); LYMPH % 20.7 % (9.0-44.0); LYMPHOCYTE # 1.7 TH/MM3 (1.0-4.8); MEAN CELL VOLUME 101.9 FL (80.0-100.0); MEAN CORPUSCULAR HEMOGLOBIN 33.7 PG (27.0-34.0); MEAN PLATELET VOLUME 8.6 FL (7.0-11.0); MONO % 11.7 % (0.0-8.0); PLATELET COUNT 229 TH/MM3 (150-450); RED BLOOD COUNT 3.33 MIL/MM3 (4.50-5.90); RED CELL DISTRIBUTION WIDTH 16.1 % (11.6-17.2); WHITE BLOOD COUNT 8.4 TH/MM3 (4.0-11.0)
--- NOTE | 2017-09-18 08:19 | HHI.PR ---
Subjective Remarks This is a pleasant 67 y/o male who was admitted on 09/03/17 with Alcohol withdrawal, Nephrology and GI specialist following, alcoholic, HTN, DM II, CAD, Kidney disease, was on Vancomycin due to Staph epidermidis positive, developed acute kidney Injury, has Gastritis and Esophagitis. 09/16: Denies any nausea or vomit. improving Bowel movements for today had One. discussed with nurse Miss Gonsalez he will go for HIDA scan today. okay to discharge from Nephrology specialist standpoint. 09/17: Stable in his bedroom, as per PT will go home on HHC, as per Nephrology specialist okay to discharge home, improving condition, had one BM this 24 hours, he wants to go home, discussed with nurse Miss Gonsalez, no nausea, vomit or diarrhea will discuss with GI for clearance for discharge. 09/18: Seen in his bedroom, has Diarrhea four BMs today, asked by GI specialist for General surgery, but no recommendation for surgery, no nausea or vomit. Objective Vital Signs Date Time Temp Pulse Resp B/P (MAP) Pulse Ox O2 Delivery O2 Flow Rate FiO2 09/18/17 04:00 98.1 75 18 164/88 (113) 96 09/18/17 03:49 74 09/18/17 00:00 98.3 79 18 159/80 (106) 95 09/17/17 23:21 74 09/17/17 19:48 75 09/17/17 16:00 98.2 80 17 145/74 (97) 95 09/17/17 12:00 98.4 81 18 152/81 (104) 97 I/O 09/17/17 09/17/17 09/17/17 09/18/17 09/18/17 09/18/17 07:00 15:00 23:00 07:00 15:00 23:00 Intake Total 781 ml 1000 ml 900 ml Output Total 650 ml 500 ml Balance 131 ml 500 ml 900 ml IV Total 781 ml 1000 ml 900 ml Output Urine Total 650 ml 500 ml # Bowel Movements 1 4 Result Diagram: 09/18/17 0750 09/17/17 0624 Imaging Last Impressions Hepatobiliary Scan Nuclear Medicine 09/16/17 0000 Signed Impressions: Service Date/Time: Saturday, September 16, 2017 11:45 - CONCLUSION: 1. No demonstrable clearance of activity from the gallbladder prior to and following administration of CCK (EF is therefore not calculable). Patient was asymptomatic during CCK demonstration. 2. No evidence for hepatocellular dysfunction or biliary ductal obstruction. Albaro Vaughan MD Abdomen Ultrasound 09/15/17 0000 Signed Impressions: Service Date/Time: Friday, September 15, 2017 08:24 - CONCLUSION: 1. No diffusely increased hepatic echogenicity without volume loss consistent with hepatic steatosis versus medical liver disease. 2. Small amount of gallbladder sludge with color wall thickening and questionable pericholecystic fluid. These findings are commonly seen in the setting of chronic liver disease but significantly reduce sonographic sensitivity for evaluation of acute cholecystitis. If there is significant clinical concern for acute cholecystitis , HIDA scan may be performed to evaluate for cystic duct patency. Albaro Vaughan MD Abdomen/Pelvis CT 09/11/17 0000 Signed Impressions: Service Date/Time: Monday, September 11, 2017 20:28 - CONCLUSION: No acute CT findings in the abdomen or pelvis. Interval development of tiny bilateral pleural effusions. Stable diffuse hepatic steatosis. Sathya Rachel MD Head CT 09/02/173 Signed Impressions: Service Date/Time: Sunday, September 03, 2017 00:11 - CONCLUSION: No acute intracranial findings Sathya Rachel MD Chest X-Ray [id number]/02/[id number] Signed Impressions: Service Date/Time: Saturday, September 02, 2017 22:46 - CONCLUSION: No acute disease. Sathya Rachel MD Procedures None Other Results Laboratory Tests Test 09/02/17 22:45 09/02/17 23:15 09/03/17 07:23 09/03/17 12:16 Activated Partial Thromboplast Time 24.4 SEC Total Creatine Kinase 49 U/L Troponin I LESS THAN 0.02 NG/ML Ethyl Alcohol Level LESS THAN 3 MG/DL Urine Uric Acid Crystals OCC /hpf Urine Hyaline Casts 81 /lpf Urine Granular Casts 5 /lpf Urine Opiates Screen NEG Urine Barbiturates Screen NEG Urine Amphetamines Screen NEG Urine Benzodiazepines Screen NEG Urine Cocaine Screen NEG Urine Cannabinoids Screen NEG Lactic Acid Level 2.2 mmol/L Hemoglobin A1c 7.6 % Hepatitis A IgM Antibody NONREACTIVE Hepatitis B Surface Antigen NONREACTIVE Hepatitis B Core IgM Antibody NONREACTIVE Hepatitis C IgG Antibody NONREACTIVE Test 09/04/17 06:48 09/05/17 06:47 09/05/17 21:21 09/08/17 03:42 Prothrombin Time 12.2 SEC Prothromb Time International Ratio 1.2 RATIO Protein Corrected Calcium 8.1 MG/DL Vitamin B12 Level 1350 PG/ML Folate 8.1 NG/ML Erythrocyte Sedimentation Rate 25 mm/hr Rheumatoid Factor Screen NEGATIVE Rheumatoid Factor Titer IU/ML Vancomycin Level Trough 29.0 MCG/ML Test 09/09/17 03:10 09/09/17 13:40 09/11/17 21:15 09/13/17 09:36 Free Thyroxine 1.35 NG/DL Free Triiodothyronine (T3) pg/dL 1.39 PG/ML Thyroid Stimulating Hormone 3rd Gen 2.710 uIU/ML Random Vancomycin Level 27.6 COMMENT Stool C. difficile Toxin (PCR) NEGATIVE Stl C. difficile Toxin Epiderm 027 PRESUMPTIVE NEGATIVE Lipase 27 U/L Urine Color LIGHT-YELLOW Urine Turbidity CLEAR Urine pH 5.5 Urine Specific [place] 1.006 Urine Protein TRACE mg/dL Urine Glucose (UA) NEG mg/dL Urine Ketones NEG mg/dL Urine Occult Blood TRACE Urine Nitrite NEG Urine Bilirubin NEG Urine Urobilinogen LESS THAN 2.0 MG/DL Urine Leukocyte Esterase NEG Urine RBC 1 /hpf Urine WBC 4 /hpf Urine Squamous Epithelial Cells <1 /hpf Urine Transitional Epithelial Cells <1 /hpf Urine Bacteria RARE /hpf Urine Mucus FEW /lpf Microscopic Urinalysis Comment CULT NOT INDICATED Urine Eosinophils RARE /HPF Urine Osmolality 284 MOSM/KG Urine Random Creatinine 23.2 MG/DL Urine Random Sodium 104 MEQ/L Test 09/14/17 06:10 09/17/17 06:24 09/18/17 07:50 Blood Urea Nitrogen 5 MG/DL Creatinine 1.84 MG/DL Random Glucose 160 MG/DL Total Protein 6.3 GM/DL 6.0 GM/DL Albumin 2.0 GM/DL 2.0 GM/DL Calcium Level 8.3 MG/DL Magnesium Level 1.9 MG/DL Alkaline Phosphatase 259 U/L 266 U/L Aspartate Amino Transf (AST/SGOT) 244 U/L 184 U/L Alanine Aminotransferase (ALT/SGPT) 99 U/L 96 U/L Total Bilirubin 1.1 MG/DL 1.4 MG/DL Sodium Level 143 MEQ/L Potassium Level 5.0 MEQ/L Chloride Level 112 MEQ/L Carbon Dioxide Level 21.2 MEQ/L Estimat Glomerular Filtration Rate 63 ML/MIN Direct Bilirubin 0.9 MG/DL Indirect Bilirubin 0.5 MG/DL White Blood Count 8.4 TH/MM3 Red Blood Count 3.33 MIL/MM3 Hemoglobin 11.2 GM/DL Hematocrit 34.0 % Mean Corpuscular Volume 101.9 FL Mean Corpuscular Hemoglobin 33.7 PG Mean Corpuscular Hemoglobin Concent 33.0 % Red Cell Distribution Width 16.1 % Platelet Count 229 TH/MM3 Mean Platelet Volume 8.6 FL Neutrophils (%) (Auto) 65.0 % Lymphocytes (%) (Auto) 20.7 % Monocytes (%) (Auto) 11.7 % Eosinophils (%) (Auto) 2.0 % Basophils (%) (Auto) 0.6 % Neutrophils # (Auto) 5.4 TH/MM3 Lymphocytes # (Auto) 1.7 TH/MM3 Monocytes # (Auto) 1.0 TH/MM3 Eosinophils # (Auto) 0.2 TH/MM3 Basophils # (Auto) 0.0 TH/MM3 CBC Comment DIFF FINAL Differential Comment Objective Remarks GENERAL: No acute distress. SKIN: Warm and dry. HEAD: Atraumatic. Normocephalic. EYES: Pupils equal and round. No scleral icterus. No injection or drainage. ENT: No nasal bleeding or discharge. Mucous membranes pink and moist. NECK: Trachea midline. No JVD. CARDIOVASCULAR: Regular rate and rhythm. RESPIRATORY: No accessory muscle use. Clear to auscultation. Breath sounds equal bilaterally. GASTROINTESTINAL: Abdomen soft, non-tender, nondistended. Hepatic and splenic margins not palpable. MUSCULOSKELETAL: Extremities without clubbing, cyanosis, or edema. NEUROLOGICAL: Awake and alert. No obvious cranial nerve deficits. PSYCHIATRIC: Appropriate mood and affect; insight and judgment normal. Medications and IVs Current Medications Medications (Trade) Dose Ordered Sig/April Route Start Time Stop Time Status Last Admin (Romazicon Inj) 0.2 mg Q1M PRN IV PUSH 09/03/17 01:00 (D50w (Vial) Inj) 50 ml UNSCH PRN IV PUSH 09/03/17 01:15 (Glucagon Inj) 1 mg UNSCH PRN OTHER 09/03/17 01:15 (NovoLOG SUPPLEMENTAL SCALE) 1 ACHS SLIDING SCALE SQ 09/03/17 08:00 Future hold 09/17/17 20:51 (NS Flush) 2 ml UNSCH PRN IV FLUSH 09/03/17 01:15 (NS Flush) 2 ml BID IV FLUSH 09/03/17 09:00 09/15/17 22:29 (Zofran Inj) 4 mg Q6H PRN IVP 09/03/17 01:15 09/10/17 21:42 (Tylenol) 650 mg Q6H PRN PO 09/03/17 01:15 (Roxicodone) 5 mg Q4H PRN PO 09/03/17 01:15 09/16/17 06:26 (Milk Of Magnesia Liq) 30 ml Q12H PRN PO 09/03/17 01:15 (Senokot) 17.2 mg Q12H PRN PO 09/03/17 01:15 (Norvasc) 5 mg DAILY PO 09/03/17 09:00 Future Hold 09/03/17 08:30 (Lipitor) 40 mg HS PO 09/03/17 21:00 09/17/17 20:39 (Coreg) 25 mg BID PO 09/03/17 09:00 Future hold 09/17/17 20:39 (Lanoxin) 0.25 mg DAILY PO 09/03/17 09:00 09/17/17 08:37 (Lexapro) 10 mg DAILY PO 09/03/17 09:00 09/17/17 08:37 (Tapazole) 5 mg DAILY PO 09/09/17 09:00 09/17/17 08:37 (Mag-Ox) 400 mg DAILY@1100 PO 09/09/17 11:00 09/17/17 11:33 (Lactinex) 1 tab Q12HR PO 09/10/17 11:00 09/17/17 20:39 (Prinivil) 10 mg DAILY PO 09/11/17 09:00 Future Hold 09/13/17 09:29 (Creon 24-76-120) 2 cap TID PO 09/11/17 18:00 09/17/17 17:12 (Levemir Inj) 5 units DAILY SQ 09/13/17 09:00 09/16/17 08:18 (Apresoline) 10 mg Q6HR PRN PO 09/13/17 12:00 (Xifaxan) 550 mg BID PO 09/13/17 21:00 09/17/17 20:39 (Questran 4 Gm Pkt) 4 gm Q12HR PO 09/13/17 21:00 09/17/17 20:39 (Cardura) 1 mg DAILY PO 09/14/17 12:00 09/17/17 08:37 Sodium Chloride 1,000 ml @ 100 mls/hr Q10H IV 09/15/17 11:00 09/17/17 23:44 (Metamucil Fiber Sf Pkt) 1 pkt BID PO 09/17/17 21:00 09/17/17 20:43 A/P Assessment and Plan 67 years old male S. epidermidis bacteremia- repeat blood cultures. - so far no growth Rocephin 09/08 - finished management by ID specialist off antibiotics. Diarrhea-today had four BMs. GI specialist following. continue Questran. Colonoscopy and C diff and repeat CT abdomen pelvis- negative lactinex bid GI following, on trial of creon, Xifaxan and cholestyramine. HIDA scan not able to get EF, as per General surgery no surgical procedure needed at this time. TALON- Improving to Creatinine 1.43 Macrocytic anemia S/P colonoscopy- internal hemorrhoids B12, folate level= normal PPI. no NSAIds S/P EGD- Esophagitis UTI- s/p received 3 days Bactrim - asymptomatic Suspecting BPH: doxazosin. Pt to f/u w urology as an outpatient Alcoholic hepatitis - Elevated LFTs: admits to alcohol abuse. ff LFT trend- down trend CT of abdomen - unremarkable Alcohol Abuse- no DTs. S/P Librium course, strongly recommended to stop drinking behavior. DM: Sliding scale w/ Accu-Cheks. trending down - per patient on Lantus and Humalog- liklely non compliant A1C 7.6 Dietitian consult. diabetes reinforcement/teaching patient complains of poor PO appetite- d/w him that due to alcoholism - poor PO on Levemer 5 units QAM . Adjusts slowly. History of CAD/CMP- not in clinical failure- EF good on coreg/digoxin/Amlodipine/Lisinopril as OP on coreg 25 mg po bid continue on digoxin off Lisinopril at 10 mg due to worsening Cr - ff creatinine and K level Echo done with good EF 55% will not restart his lasix of 40 mg from home- caution chronic hyperthyroidism Methimazole at 5 mg daily. (at home was on 10 mg ) TSH 6.4 Hypokalemia replacing and following. Deconditioning- PT following and recommends home health awaiting final recommendations by GI specialist for discharge. DVT Prophylaxis: SCD/Jose Discharge Planning [place] to discharge from Nephrology specialist standpoint, awaiting for GI specialist for discharge later today. Jc Yan MD September 18, 2017 08:19
[2017-09-18] MEDS: DOXAZOSIN MESYLATE 1 MG TAB PO SCH (08:20)
[2017-09-18] MEDS: LACTOBACILLUS ACIDOPHILUS TAB PO SCH ×2 (08:21→22:47)
[2017-09-18] MEDS: DIGOXIN 0.25 MG TAB PO SCH (08:21)
[2017-09-18] MEDS: LIPASE/PROTEASE/AMYLASE (24,000/76,000/120,000) CAP PO SCH ×3 (08:21→16:14)
[2017-09-18] MEDS: CARVEDILOL 12.5 MG TAB PO SCH ×2 (08:21→22:48)
[2017-09-18] MEDS: ESCITALOPRAM OXALATE 10 MG TAB PO SCH (08:22)
[2017-09-18] MEDS: SODIUM CHLOR 0.9% 1000 ML INJ 1,000 ML IV SCH (08:22)
[2017-09-18] MEDS: SODIUM CHLORIDE 0.9% FLUSH 10 ML FLUSH IV FLUSH SCH ×2 (08:22→22:48)
[2017-09-18] MEDS: METHIMAZOLE 5 MG TAB PO SCH (08:22)
[2017-09-18] MEDS: INSULIN DETEMIR 100 UNITS/ML VIAL SQ SCH (08:23)
[2017-09-18] MEDS: PSYLLIUM HUSK SF 3.4 GM in 5.8 GM PKT PO SCH ×2 (08:23→21:00)
[2017-09-18] MEDS: CHOLESTYRAMINE 4 GM PACKET PO SCH ×3 (08:23→22:47)
[2017-09-18] MEDS: RIFAXIMIN 550 MG TAB PO SCH ×2 (08:25→22:47)
[2017-09-18 08:39] LABS: BICARBONATE 21.2 MEQ/L (21.0-32.0); CALCIUM 8.2 MG/DL (8.5-10.1); CREATININE 1.43 MG/DL (0.60-1.30)
[2017-09-18] MEDS ORDERED: GADODIAMIDE PF 287 MG/ML 10 ML VIAL (for RAD MRI) IVCONTRAST ONE (10:00)
[2017-09-18] MEDS: MAGNESIUM OXIDE 400 MG TAB PO SCH (11:00)
--- NOTE | 2017-09-18 12:04 | RADRPT ---
EXAM DATE/TIME: 09/18/2017 10:14 [facility] COMPARISON: No previous studies available for comparison. INDICATIONS : Abdominal pain. CONTRAST: 30 cc Omniscan (gadodiamide) IV MEDICAL HISTORY : Diabetes mellitus type 2. Hypertension. Myocardial infarction. SURGICAL HISTORY : Cataract. ENCOUNTER: Initial ACUITY: 2 day PAIN SCORE: 4/10 LOCATION: abdomen TECHNIQUE: Bolus infused MR angiography was performed. The data was postprocessed with a variety of visualizati on algorithms including full-volume maximum-intensity projection, multiplanar sliding thin slab refor mation, and curved planar reformation. FINDINGS: ABDOMINAL AORTA: The lumen is smooth without significant narrowing or aneurysmal dilatation. The proximal celiac and s uperior mesenteric arteries are patent and normal in diameter. RENAL ARTERIES: There are solitary renal arteries bilaterally. No evidence of ostial or segmental stenosis. KIDNEYS: There is symmetric renal size. There is homogeneous enhancement in the parenchyma. BIFURCATION: Normal. RIGHT PELVIS: The right common iliac, internal iliac, and external iliac vessels are patent without luminal irregul arity. LEFT PELVIS: The left common iliac, internal iliac, and external iliac vessels are patent and without luminal irre gularity. RETROPERITONEUM: The adrenal glands are unremarkable. No adenopathy seen. CONCLUSION: Normal examination. Sathya Rachel MD on September 18, 2017 at 12:01 Board Certified Radiologist. This report was verified electronically.
--- NOTE | 2017-09-18 13:28 | MB ---
cc: Dc Way MD DATE: 09/18/2017 CHIEF COMPLAINT: Abdominal pain, rule out acute cholecystitis. HISTORY OF PRESENT ILLNESS: The patient is a 67-year-old male who presents with multiple medical issues including hypertension, coronary artery disease, diabetes and alcohol abuse. The patient was admitted on 09/03/2017 and was admitted for nausea, vomiting, for several weeks with retching and some epigastric pain. The pain was noted to be somewhat intermittent and it was worse if he does not eat. He has also had a lot of diarrhea, multiple bowel movements a day and a little bit of blood in the stool. He does note some weight loss. He was admitted also with some chest pains and chest pain workup which was otherwise negative. The patient does have a previous history of RI in the past. He underwent further workup including a colonoscopy showing moderate diverticulosis, internal hemorrhoids and external hemorrhoids. He also underwent endoscopy showing gastritis, duodenal inflammation and esophagitis, currently treating for this and further, he had a workup with blood culture showing Staph epidermidis bacteremia, for which he is on antibiotics and Infectious Disease is following. He also has some renal issues which Nephrology is following. The patient had workups as well with CT scan which was essentially negative initially and repeat CT scan shows some diffuse hepatic steatosis. He also had an ultrasound of the abdomen showing consistence with hepatic steatosis and liver disease, small sludge in the gallbladder. This was followed by a HIDA scan without a demonstratable ejection fraction. The patient was not noted to be symptomatic upon administration of CCK. Surgery was consulted for further evaluation of abdominal pain and rule out acute cholecystitis. Further, the patient had laboratory workup with a normal white blood cell count. He did have initial total bilirubin of 2.6 along with elevated AST, ALT and alkaline phosphatase. His bilirubin has resolved and alkaline phosphatase are slowly trending down. White blood cell remains unchanged. Again, Surgery was consulted to evaluate for acute cholecystitis. PAST MEDICAL HISTORY: Hypertension, coronary artery disease, RI, CHF, diabetes, alcohol abuse. PAST SURGICAL HISTORY: Endoscopies. ALLERGIES: NO KNOWN DRUG ALLERGIES. FAMILY HISTORY: Denies diabetes or hypertension. SOCIAL HISTORY: The patient drinks a gallon of vodka every few days. Denies smoking or IVDA. MEDICATIONS: See EMR. REVIEW OF SYSTEMS: GENERAL: Complains of weakness. HEENT: Denies eye pain, ear pain. NECK: Denies swallowing pain. LUNGS: Denies cough, wheeze. HEART: Denies palpitations. Complains of chest pains on admission. ABDOMEN: Complains of nausea, vomiting, diarrhea, abdominal pain. GENITOURINARY: Denies dysuria, hematuria. ENDOCRINE: Denies polyuria, polydipsia. NEUROLOGIC: Denies numbness or tingling. PSYCH: Alcoholism, appropriate mood. INTEGUMENT: No complaint of masses or lesions. PHYSICAL EXAMINATION: GENERAL: Patient in no acute distress. VITAL SIGNS: Temperature 98.1, pulse 75, respirations 18, blood pressure 164/88, saturation 96% on room air. HEENT: Pupils equal, round, reactive. NECK: Supple, Trachea midline. CHEST: Lungs clear to auscultation. Bilateral expansion. HEART: S1, S2. Regular. ABDOMEN: Soft. Positive tenderness to palpation diffuse, greater in left upper quadrant. No rebound, no guarding. : Deferred. EXTREMITIES: Warm and well perfused. NEUROLOGIC: GCS of 15. 5/5 motor in all extremities. INTEGUMENT: No obvious masses or lesions. PSYCHIATRIC: Appropriate insight, appropriate judgment. LABORATORY/DIAGNOSTIC DATA: WBC 5.1, hemoglobin 9.5, hematocrit 27.6, platelets 141. Sodium 144, potassium 3.1, chloride 114, BUN 4, creatinine 1.4, calcium 8.2, bilirubin 1.4, AST is 184, ALT 96, alkaline phosphatase 266, albumin 2. INR 1.2. Imaging reviewed by myself: CT scan 09/03/2017: No evidence of acute abnormality. CT 09/11/2017: Bilateral effusions, tiny hepatic steatosis. Ultrasound abdomen: Hepatic steatosis, small gallbladder sludge. HIDA scan: No evidence for hepatocellular dysfunction or biliary duct obstruction. Abdomen MRA: Normal. ASSESSMENT: The patient is a 67-year-old male with multiple medical issues, presents with weakness, alcohol withdrawal, Staphylococcus bacteremia, diarrhea and abdominal pain. PLAN: After full clinical, radiologic and laboratory workup, the patient with the above-named issues. Currently, the patient is being treated by Infectious Disease for bacteremia. At this point, I have a low suspicion that there is a gallbladder etiologic problem to the patient's complaints. I attribute most of the patient's issues to either the bacteremia, his medical issues or some sort of colitis or enteritis. The patient is having diarrhea and abdominal pain, does not appear clinically consistent with specific right upper quadrant pain and acute cholecystitis. The patient has no pain significantly with p.o. intake of fatty meals. Further, the patient has a long history of ethyl alcohol intoxication and is a heavy drinker. I would attribute more liver disease and dysfunction than again to a specific gallbladder etiology. Surgery will continue to follow with abdominal exams and nonoperative management at this time. Thank you for this consultation. MD DENNIS Raygoza/LALA , 12:38 PM , 01:26 PM
--- NOTE | 2017-09-18 14:55 | HHI.NPPN ---
Subjective Renal Failure: Acute History of Present Illness This is a 67-year-old male with a past medical history of alcoholism, history of hypertension, diabetes mellitus, ischemic heart disease, was admitted because of generalized weakness and alcohol withdrawal.Nephrology was called to see the patient because of elevated BUN and creatinine. The patient has creatinine of 1.1 on admission, which decreased to 0.6-0.7 and then it started going up for the last 5 days gradually to 1.2-1.5 now. The patient denies any previous history of renal disease. He has some nausea and decreased appetite and has loose bowel motion. The patient was found to have blood culture positive of Staph epidermidis and he is currently getting ceftriaxone and he was on vancomycin, but it was stopped on 09/08/2017. At that time, his vancomycin trough level was 29. Patient has been following with the GI and he has elevated liver enzymes, mainly because of alcoholism and he had endoscopy which shows that he has gastritis and esophagitis. Additional Remarks Reports continuous diarrhea. Potassium low at 3.1. (Hilda Grey) Review of Systems Respiratory Respiratory Remarks Denies any shortness of breath (Hilda Grey) Cardiovascular Cardiac Remarks Denies any chest pain (Hilda Grey) Gastrointestinal Gastrointestinal: Diarrhea (Hilda Grey) Objective Data Data Vital Signs Date Time Temp Pulse Resp B/P (MAP) Pulse Ox O2 Delivery O2 Flow Rate FiO2 09/18/17 12:00 97.2 63 20 168/79 (108) 99 09/18/17 08:00 98.9 68 20 168/88 (114) 98 09/18/17 04:00 98.1 75 18 164/88 (113) 96 09/18/17 03:49 74 09/18/17 00:00 98.3 79 18 159/80 (106) 95 09/17/17 23:21 74 09/17/17 19:48 75 09/17/17 16:00 98.2 80 17 145/74 (97) 95 (Hilda Grey) -: 09/18/17 0750 09/18/17 0750 Imaging Last Impressions Abdomen Magnetic Resonance Angio 09/18/17 0000 Signed Impressions: Service Date/Time: Monday, September 18, 2017 10:14 - CONCLUSION: Normal examination. Sathya Rachel MD Hepatobiliary Scan Nuclear Medicine 09/16/17 0000 Signed Impressions: Service Date/Time: Saturday, September 16, 2017 11:45 - CONCLUSION: 1. No demonstrable clearance of activity from the gallbladder prior to and following administration of CCK (EF is therefore not calculable). Patient was asymptomatic during CCK demonstration. 2. No evidence for hepatocellular dysfunction or biliary ductal obstruction. Albaro Vaughan MD Abdomen Ultrasound 09/15/17 0000 Signed Impressions: Service Date/Time: Friday, September 15, 2017 08:24 - CONCLUSION: 1. No diffusely increased hepatic echogenicity without volume loss consistent with hepatic steatosis versus medical liver disease. 2. Small amount of gallbladder sludge with color wall thickening and questionable pericholecystic fluid. These findings are commonly seen in the setting of chronic liver disease but significantly reduce sonographic sensitivity for evaluation of acute cholecystitis. If there is significant clinical concern for acute cholecystitis , HIDA scan may be performed to evaluate for cystic duct patency. Albaro Vaughan MD Abdomen/Pelvis CT 09/11/17 0000 Signed Impressions: Service Date/Time: Monday, September 11, 2017 20:28 - CONCLUSION: No acute CT findings in the abdomen or pelvis. Interval development of tiny bilateral pleural effusions. Stable diffuse hepatic steatosis. Sathya Rachel MD Head CT 09/02/17 2233 Signed Impressions: Service Date/Time: Sunday, September 03, 2017 00:11 - CONCLUSION: No acute intracranial findings Sathya Rachel MD Chest X-Ray 09/02/172232 Signed Impressions: Service Date/Time: Saturday, September 02, 2017 22:46 - CONCLUSION: No acute disease. Sathya Rachel MD (Hilda Grey) Physical Exam General Appearance: No Acute Distress, Comfortable (Hilda Grey) Throat Throat Exam: Oral Mucosa [place] & Moist (Hilda Grey) Pulmonary Resp Exam: Breath Sounds Equal, No Distress (Hilda Grey) Cardiology CV Exam: Normal Sinus Rhythm (Hilda Grey) Gastrointestinal/Abdomen GI Exam: Soft, Non-Tender, Bowel Sounds Present GI Remarks large (Hilda Grey) Genitourinary Exam: Flank Non-Tender (Hilda Grey) Integumentary Skin Exam: Clear, Warm, Dry (Hilda Grey) Extremeties Extremities Exam: Trace Edema (Hilda Grey) Neurologic Neuro Exam: Alert, Awake, Oriented (Hilda Grey) Psychiatric Psych Exam: Appropriate Responses (Hilda Grey) Assessment/Plan Discussed Condition With: Patient Assessment Summary: TALON/Acute Renal Failure Problem List: (1) Acute kidney injury ICD Codes: N17.9 - Acute kidney failure, unspecified Plan: Acute kidney injury the patient has creatinine of 1.1 on admission, which decreased to 0.6-0.7 and then it started going up for the last 5 days gradually to 1.2-1.5 now. Differential diagnosis will be ATN, either from the infection or the possibility of vancomycin related toxicity. The patient has been nonoliguric. CT of abdomen with kidney with normal in size and shape. There is no mass, stone, or hydronephrosis. Proteinuria noted FeNa at 5.1% suggestive of ATN Plan Creatinine stable at 1.43 today. Non oliguric Continue to hold Lisinopril Avoid nephrotoxins Fluids encouraged Hypokalemia replacement ordered daily Will follow urinary output and BMP. Stable for d/c from renal standpoint, renal function stable. (2) Elevated LFTs ICD Codes: R79.89 - Other specified abnormal findings of blood chemistry Plan: GI consulted and managing (3) DM (diabetes mellitus) ICD Codes: E11.9 - Type 2 diabetes mellitus without complications Plan: Maintain blood sugars between 140 mg/dl to 180 mg/dl (4) Hypertension ICD Codes: I10 - Essential (primary) hypertension Plan: continue medication well controlled (Hilda Grey) Problem List: (1) Acute kidney injury ICD Codes: N17.9 - Acute kidney failure, unspecified Plan: Acute kidney injury the patient has creatinine of 1.1 on admission, which decreased to 0.6-0.7 and then it started going up for the last 5 days gradually to 1.2-1.5 now. Differential diagnosis will be ATN, either from the infection or the possibility of vancomycin related toxicity. The patient has been nonoliguric. CT of abdomen with kidney with normal in size and shape. There is no mass, stone, or hydronephrosis. Proteinuria noted FeNa at 5.1% suggestive of ATN Plan Creatinine stable at 1.43 today. Non oliguric Continue to hold Lisinopril Avoid nephrotoxins Fluids encouraged Hypokalemia replacement ordered daily Will follow urinary output and BMP. Stable for d/c from renal standpoint, renal function stable. Patient seen and examined, agree with above. Possibly has ATN, if D/C, can follow as out patient. (2) Elevated LFTs ICD Codes: R79.89 - Other specified abnormal findings of blood chemistry Plan: GI consulted and managing (3) DM (diabetes mellitus) ICD Codes: E11.9 - Type 2 diabetes mellitus without complications Plan: Maintain blood sugars between 140 mg/dl to 180 mg/dl (4) Hypertension ICD Codes: I10 - Essential (primary) hypertension Plan: continue medication well controlled (Luis Obando MD) Hilda Grey September 18, 2017 14:55 Luis Obando MD September 18, 2017 19:40
--- NOTE | 2017-09-18 14:55 | HHI.GIFU ---
Subjective Remarks Pt resting in bed. Says he is still having diarrhea "bad" but reportedly is having 1-2 bm daily, semiformed. (Elba Georges) Objective Vitals I&O Vital Signs Date Time Temp Pulse Resp B/P (MAP) Pulse Ox O2 Delivery O2 Flow Rate FiO2 09/18/17 12:00 97.2 63 20 168/79 (108) 99 09/18/17 08:00 98.9 68 20 168/88 (114) 98 09/18/17 04:00 98.1 75 18 164/88 (113) 96 09/18/17 03:49 74 09/18/17 00:00 98.3 79 18 159/80 (106) 95 09/17/17 23:21 74 09/17/17 19:48 75 09/17/17 16:00 98.2 80 17 145/74 (97) 95 I/O 09/17/17 09/17/17 09/17/17 09/18/17 09/18/17 09/18/17 07:00 15:00 23:00 07:00 15:00 23:00 Intake Total 781 ml 1000 ml 900 ml Output Total 650 ml 500 ml Balance 131 ml 500 ml 900 ml IV Total 781 ml 1000 ml 900 ml Output Urine Total 650 ml 500 ml # Bowel Movements 1 4 Laboratory Laboratory Tests Test 09/18/17 07:50 White Blood Count 8.4 Red Blood Count 3.33 Hemoglobin 11.2 Hematocrit 34.0 Mean Corpuscular Volume 101.9 Mean Corpuscular Hemoglobin 33.7 Mean Corpuscular Hemoglobin Concent 33.0 Red Cell Distribution Width 16.1 Platelet Count 229 Mean Platelet Volume 8.6 Neutrophils (%) (Auto) 65.0 Lymphocytes (%) (Auto) 20.7 Monocytes (%) (Auto) 11.7 Eosinophils (%) (Auto) 2.0 Basophils (%) (Auto) 0.6 Neutrophils # (Auto) 5.4 Lymphocytes # (Auto) 1.7 Monocytes # (Auto) 1.0 Eosinophils # (Auto) 0.2 Basophils # (Auto) 0.0 CBC Comment DIFF FINAL Differential Comment Blood Urea Nitrogen 4 Creatinine 1.43 Random Glucose 117 Calcium Level 8.2 Sodium Level 144 Potassium Level 3.1 Chloride Level 114 Carbon Dioxide Level 21.2 Anion Gap 9 Estimat Glomerular Filtration Rate 60 Date/Time Source Procedure Growth Status 09/04/17 11:53 Blood Peripheral Aerobic Blood Culture - Final NO GROWTH IN 5 DAYS Complete 09/04/17 11:53 Blood Peripheral Anaerobic Blood Culture - Final NO GROWTH IN 5 DAYS Complete Imaging Last Impressions Abdomen Magnetic Resonance Angio 09/18/17 0000 Signed Impressions: Service Date/Time: Monday, September 18, 2017 10:14 - CONCLUSION: Normal examination. Sathya Rachel MD Hepatobiliary Scan Nuclear Medicine 09/16/17 0000 Signed Impressions: Service Date/Time: Saturday, September 16, 2017 11:45 - CONCLUSION: 1. No demonstrable clearance of activity from the gallbladder prior to and following administration of CCK (EF is therefore not calculable). Patient was asymptomatic during CCK demonstration. 2. No evidence for hepatocellular dysfunction or biliary ductal obstruction. Albaro Vaughan MD Abdomen Ultrasound 09/15/17 0000 Signed Impressions: Service Date/Time: Friday, September 15, 2017 08:24 - CONCLUSION: 1. No diffusely increased hepatic echogenicity without volume loss consistent with hepatic steatosis versus medical liver disease. 2. Small amount of gallbladder sludge with color wall thickening and questionable pericholecystic fluid. These findings are commonly seen in the setting of chronic liver disease but significantly reduce sonographic sensitivity for evaluation of acute cholecystitis. If there is significant clinical concern for acute cholecystitis , HIDA scan may be performed to evaluate for cystic duct patency. Albaro Vaughan MD Abdomen/Pelvis CT 09/11/17 0000 Signed Impressions: Service Date/Time: Monday, September 11, 2017 20:28 - CONCLUSION: No acute CT findings in the abdomen or pelvis. Interval development of tiny bilateral pleural effusions. Stable diffuse hepatic steatosis. Sathya Rachel MD Head CT 09/02/172232 Signed Impressions: Service Date/Time: Sunday, September 03, 2017 00:11 - CONCLUSION: No acute intracranial findings Sathya Rachel MD Chest X-Ray 09/02/172232 Signed Impressions: Service Date/Time: Saturday, September 02, 2017 22:46 - CONCLUSION: No acute disease. Sathya Rachel MD Physical Exam HEENT: Normocephalic; atraumatic CHEST: CTA CARDIAC: RRR ABDOMEN: Soft, nondistended, diffuseTTP; bowel sounds active EXTREMITIES: No clubbing, cyanosis, or edema. SKIN: Normal; no rash; no jaundice. COLLATERAL SPECIALIST: No focal deficits; alert and oriented times three. (Elba Georges DIANETICIST) Assessment and Plan Plan Assessment: - Projectile vomiting- reports of nausea and vomiting for the past 3-4 weeks with some episodes of hematemesis preceded by extreme retching. Associated epigastric pain, acid reflux, and heartburn. CT abdomen and pelvis W IV contrast (09/03) --> No acute findings. Liver: Severely diminished hepatic attenuation likely reflecting steatosis. No focal mass. No biliary ductal dilatation. - ETOH abuse- reports drinking 1 gallon of vodka a week for multiple years- denies previous diagnosis of liver issues. - Transaminitis likely secondary to ETOH DF- 4 no indication for steroids LFTs currently: AST-307 ALT-112 T bili-3.9 Alk phos-285 No thrombocytopenia, coagulopathy. Mild hypoalbuminemia - Diarrhea- reports of diarrhea for the past 3-4 weeks with some episodes of hematochezia. Associated fecal urgency and incontinence. Family history of colon cancer. Has never had EGD or colonoscopy. - Weight loss- unsure of how much over what period of time. Family history significant for colon cancer, father. (09/05) EGD --> Class A esophagitis, erythematous gastritis, duodenal inflammation in the bulb and second portion of the duodenum. Pathology (duodenal bulb) without significant histologic abnormality (stomach, antrum) minimally active chronic gastritis with intestinal metaplasia, no H. Pylori (esophagus, distal) without significant histopathologic abnormality. Pt reports some nausea today, no emesis. Initially colonoscopy was held and only EGD was done because pt would not have tolerated the prep and was unable to get to the bathroom (syncopal episode on the toilet day of initial consult) Now pt seems able to tolerate Mag Citrate prep and he is agreeable to colonoscopy. LFTs trending down, hepatitis panel negative. (09/07) Pt reports diarrhea seems to be improving. Denies any continued nausea or vomiting. Colonoscopy --> Moderate diverticulosis in the sigmoid colon. Internal and external hemorrhoids. LFTs trending down. Reconsult for Diarrhea on 09/11 C. diff negative, stool culture was never sent, ordered during initial consult Of note, pt on Magnesium Oxide. (09/13) Pt complaining of continued diarrhea, states with some episodes of incontinence. Has been on Creon for two days. Also has poor appetite, states has been trying to take the Glucerna shakes but does not like the taste of them when they are warm (09/14) Pt reports some improvement of diarrhea but continues to have multiple BMs. Also complaining of abdominal pain. Increase in LFTs noted today, they had been trending down since admission. ? secondary to medication. US abdomen ordered. (09/15) Pt reports some continued improvement in diarrhea, last BM at 4 AM. No repeat LFTs today. Abdominal US done, report pending. (09/17)Pt with persistent diarrhea- Unclear etiology- According to nurse, pt only had one bm today and more on the soft side, no frequent loose stools noted by nurse. Pt states having some vomiting but his main concern is the diarrhea, states he is having a loose BM approx. every 45 mint. not able to get any rest, however, when re- questioned he admits to going once today, he just feels the urge to go. Today he started having some mid abd aches, no hematochezia or melena US 09/15 showed fatty liver, small amount of gall bladder sludge with color wall thickening and questionable pericholecystic fluid HIDA 09/16 No evidence for hepatocellular dysfunction or biliary ductal obstructions, EF no calculated, no clearance of activity from the gall bladder prior to and following administration of CCK Pt has been on Creon and cholestyramine and Xifaxan 09/18/17 pt c/o diarrhea, 4 BM documentd. unclear etiology. MRA normal. GS consult pending after abnormal HIDA Plan: await GS consult GERALD Continue Creon Cholestyramine Xifaxan LFTs consider repeat outpt colonoscopy with bx F/u with GI in 2 weeks not much more to add Pt seen by myself and Dr. Hart and this note is on his behalf (Elba Georges) Physician Comments Patient seen and examined Agree with above Continue with current supportive care Monitor labs Diarrhea could be multifactorial which would include also diarrhea related to the diabetes and diabetic ophthalmic neuropathy Lomotil may be of help We will need to get good documentation of bowel movements by the nursing staff Further recommendations shall depend on the hospital course (Layton Hart MD) Elba Georges September 18, 2017 14:55 Layton Hart MD September 18, 2017 23:37
[2017-09-18] MEDS: POTASSIUM CHLORIDE 20 MEQ CONTROLLED RELEASE TAB PO SCH (16:14)
[2017-09-18] MEDS ORDERED: POTASSIUM CHLORIDE 20 MEQ CONTROLLED RELEASE TAB PO ONE (19:00)
[2017-09-18] MEDS: ATORVASTATIN 40 MG TAB PO SCH (22:47)
[2017-09-19] VITALS: BP 108/65; PULSE 78; RESP 18; TEMP 98; O2SAT 95
[2017-09-19] MEDS: SODIUM CHLOR 0.9% 1000 ML INJ 1,000 ML IV SCH ×2 (04:30→15:00)
[2017-09-19 08:00] VITALS: BP 167/88; PULSE 68; RESP 19; TEMP 97.5; O2SAT 98
[2017-09-19] MEDS: INSULIN ASPART SUPPLEMENTAL SCALE SQ SCH ×3 (08:00→17:00)
--- NOTE | 2017-09-19 08:24 | HHI.PR ---
Subjective Remarks This is a pleasant 67 y/o male who was admitted on 09/03/17 with Alcohol withdrawal, Nephrology and GI specialist following, alcoholic, HTN, DM II, CAD, Kidney disease, was on Vancomycin due to Staph epidermidis positive, developed acute kidney Injury, has Gastritis and Esophagitis. 09/16: Denies any nausea or vomit. improving Bowel movements for today had One. discussed with nurse Miss Gonsalez he will go for HIDA scan today. okay to discharge from Nephrology specialist standpoint. 09/17: Stable in his bedroom, as per PT will go home on [facility], as per Nephrology specialist okay to discharge home, improving condition, had one BM this 24 hours, he wants to go home, discussed with nurse Miss Gonsalez, no nausea, vomit or diarrhea will discuss with GI for clearance for discharge. 09/18: Seen in his bedroom, has Diarrhea four BMs today, asked by GI specialist for General surgery, but no recommendation for surgery, 09/19: patient stable improving BMs will need to continue management for diarrhea with Questran and also Rifaximin, at this time stable will go home with [facility] Objective Vital Signs Date Time Temp Pulse Resp B/P (MAP) Pulse Ox O2 Delivery O2 Flow Rate FiO2 09/19/17 00:00 98.0 78 18 108/65 (79) 95 09/18/17 21:00 Room Air 09/18/17 20:00 97.8 70 20 151/83 (105) 99 09/18/17 17:00 97.8 69 20 147/81 (103) 99 09/18/17 12:00 97.2 63 20 168/79 (108) 99 I/O 09/18/17 09/18/17 09/18/17 09/19/17 09/19/17 09/19/17 07:00 15:00 23:00 07:00 15:00 23:00 Intake Total 900 ml 480 ml Output Total 400 ml 400 ml Balance 900 ml 80 ml -400 ml Intake Oral 480 ml IV Total 900 ml Output Urine Total 400 ml 400 ml # Bowel Movements 2 3 Result Diagram: 09/18/17 0750 09/18/17 0750 Imaging Last Impressions Abdomen Magnetic Resonance Angio 09/18/17 0000 Signed Impressions: Service Date/Time: Monday, September 18, 2017 10:14 - CONCLUSION: Normal examination. Sathya Rachel MD Hepatobiliary Scan Nuclear Medicine 09/16/17 0000 Signed Impressions: Service Date/Time: Saturday, September 16, 2017 11:45 - CONCLUSION: 1. No demonstrable clearance of activity from the gallbladder prior to and following administration of CCK (EF is therefore not calculable). Patient was asymptomatic during CCK demonstration. 2. No evidence for hepatocellular dysfunction or biliary ductal obstruction. Albaro Vaughan MD Abdomen Ultrasound 09/15/17 0000 Signed Impressions: Service Date/Time: Friday, September 15, 2017 08:24 - CONCLUSION: 1. No diffusely increased hepatic echogenicity without volume loss consistent with hepatic steatosis versus medical liver disease. 2. Small amount of gallbladder sludge with color wall thickening and questionable pericholecystic fluid. These findings are commonly seen in the setting of chronic liver disease but significantly reduce sonographic sensitivity for evaluation of acute cholecystitis. If there is significant clinical concern for acute cholecystitis , HIDA scan may be performed to evaluate for cystic duct patency. Albaro Vaughan MD Abdomen/Pelvis CT 09/11/17 0000 Signed Impressions: Service Date/Time: Monday, September 11, 2017 20:28 - CONCLUSION: No acute CT findings in the abdomen or pelvis. Interval development of tiny bilateral pleural effusions. Stable diffuse hepatic steatosis. Sathya Rachel MD Head CT 09/02/173 Signed Impressions: Service Date/Time: Sunday, September 03, 2017 00:11 - CONCLUSION: No acute intracranial findings Sathya Rachel MD Chest X-Ray [id number]/02/[id number] Signed Impressions: Service Date/Time: Saturday, September 02, 2017 22:46 - CONCLUSION: No acute disease. Sathya Rachel MD Procedures None Other Results Laboratory Tests Test 09/02/17 22:45 09/02/17 23:15 09/03/17 07:23 09/03/17 12:16 Activated Partial Thromboplast Time 24.4 SEC Total Creatine Kinase 49 U/L Troponin I LESS THAN 0.02 NG/ML Ethyl Alcohol Level LESS THAN 3 MG/DL Urine Uric Acid Crystals OCC /hpf Urine Hyaline Casts 81 /lpf Urine Granular Casts 5 /lpf Urine Opiates Screen NEG Urine Barbiturates Screen NEG Urine Amphetamines Screen NEG Urine Benzodiazepines Screen NEG Urine Cocaine Screen NEG Urine Cannabinoids Screen NEG Lactic Acid Level 2.2 mmol/L Hemoglobin A1c 7.6 % Hepatitis A IgM Antibody NONREACTIVE Hepatitis B Surface Antigen NONREACTIVE Hepatitis B Core IgM Antibody NONREACTIVE Hepatitis C IgG Antibody NONREACTIVE Test 09/04/17 06:48 09/05/17 06:47 09/05/17 21:21 09/08/17 03:42 Prothrombin Time 12.2 SEC Prothromb Time International Ratio 1.2 RATIO Protein Corrected Calcium 8.1 MG/DL Vitamin B12 Level 1350 PG/ML Folate 8.1 NG/ML Erythrocyte Sedimentation Rate 25 mm/hr Rheumatoid Factor Screen NEGATIVE Rheumatoid Factor Titer IU/ML Vancomycin Level Trough 29.0 MCG/ML Test 09/09/17 03:10 09/09/17 13:40 09/11/17 21:15 09/13/17 09:36 Free Thyroxine 1.35 NG/DL Free Triiodothyronine (T3) pg/dL 1.39 PG/ML Thyroid Stimulating Hormone 3rd Gen 2.710 uIU/ML Random Vancomycin Level 27.6 COMMENT Stool C. difficile Toxin (PCR) NEGATIVE Stl C. difficile Toxin Epiderm 027 PRESUMPTIVE NEGATIVE Lipase 27 U/L Urine Color LIGHT-YELLOW Urine Turbidity CLEAR Urine pH 5.5 Urine Specific [place] 1.006 Urine Protein TRACE mg/dL Urine Glucose (UA) NEG mg/dL Urine Ketones NEG mg/dL Urine Occult Blood TRACE Urine Nitrite NEG Urine Bilirubin NEG Urine Urobilinogen LESS THAN 2.0 MG/DL Urine Leukocyte Esterase NEG Urine RBC 1 /hpf Urine WBC 4 /hpf Urine Squamous Epithelial Cells <1 /hpf Urine Transitional Epithelial Cells <1 /hpf Urine Bacteria RARE /hpf Urine Mucus FEW /lpf Microscopic Urinalysis Comment CULT NOT INDICATED Urine Eosinophils RARE /HPF Urine Osmolality 284 MOSM/KG Urine Random Creatinine 23.2 MG/DL Urine Random Sodium 104 MEQ/L Test 09/14/17 06:10 09/17/17 06:24 09/18/17 07:50 Blood Urea Nitrogen 5 MG/DL 4 MG/DL Creatinine 1.84 MG/DL 1.43 MG/DL Random Glucose 160 MG/DL 117 MG/DL Total Protein 6.3 GM/DL 6.0 GM/DL Albumin 2.0 GM/DL 2.0 GM/DL Calcium Level 8.3 MG/DL 8.2 MG/DL Magnesium Level 1.9 MG/DL Alkaline Phosphatase 259 U/L 266 U/L Aspartate Amino Transf (AST/SGOT) 244 U/L 184 U/L Alanine Aminotransferase (ALT/SGPT) 99 U/L 96 U/L Total Bilirubin 1.1 MG/DL 1.4 MG/DL Sodium Level 143 MEQ/L 144 MEQ/L Potassium Level 5.0 MEQ/L 3.1 MEQ/L Chloride Level 112 MEQ/L 114 MEQ/L Carbon Dioxide Level 21.2 MEQ/L 21.2 MEQ/L Direct Bilirubin 0.9 MG/DL Indirect Bilirubin 0.5 MG/DL White Blood Count 8.4 TH/MM3 Red Blood Count 3.33 MIL/MM3 Hemoglobin 11.2 GM/DL Hematocrit 34.0 % Mean Corpuscular Volume 101.9 FL Mean Corpuscular Hemoglobin 33.7 PG Mean Corpuscular Hemoglobin Concent 33.0 % Red Cell Distribution Width 16.1 % Platelet Count 229 TH/MM3 Mean Platelet Volume 8.6 FL Neutrophils (%) (Auto) 65.0 % Lymphocytes (%) (Auto) 20.7 % Monocytes (%) (Auto) 11.7 % Eosinophils (%) (Auto) 2.0 % Basophils (%) (Auto) 0.6 % Neutrophils # (Auto) 5.4 TH/MM3 Lymphocytes # (Auto) 1.7 TH/MM3 Monocytes # (Auto) 1.0 TH/MM3 Eosinophils # (Auto) 0.2 TH/MM3 Basophils # (Auto) 0.0 TH/MM3 CBC Comment DIFF FINAL Differential Comment Anion Gap 9 MEQ/L Estimat Glomerular Filtration Rate 60 ML/MIN Objective Remarks GENERAL: No acute distress. SKIN: Warm and dry. HEAD: Atraumatic. Normocephalic. EYES: Pupils equal and round. No scleral icterus. No injection or drainage. ENT: No nasal bleeding or discharge. Mucous membranes pink and moist. NECK: Trachea midline. No JVD. CARDIOVASCULAR: Regular rate and rhythm. RESPIRATORY: No accessory muscle use. Clear to auscultation. Breath sounds equal bilaterally. GASTROINTESTINAL: Abdomen soft, non-tender, nondistended. Hepatic and splenic margins not palpable. MUSCULOSKELETAL: Extremities without clubbing, cyanosis, or edema. NEUROLOGICAL: Awake and alert. No obvious cranial nerve deficits. PSYCHIATRIC: Appropriate mood and affect; insight and judgment normal. Medications and IVs Current Medications Medications (Trade) Dose Ordered Sig/April Route Start Time Stop Time Status Last Admin (Romazicon Inj) 0.2 mg Q1M PRN IV PUSH 09/03/17 01:00 (D50w (Vial) Inj) 50 ml UNSCH PRN IV PUSH 09/03/17 01:15 (Glucagon Inj) 1 mg UNSCH PRN OTHER 09/03/17 01:15 (NovoLOG SUPPLEMENTAL SCALE) 1 ACHS SLIDING SCALE SQ 09/03/17 08:00 Future hold 09/17/17 20:51 (NS Flush) 2 ml UNSCH PRN IV FLUSH 09/03/17 01:15 (NS Flush) 2 ml BID IV FLUSH 09/03/17 09:00 09/18/17 22:48 (Zofran Inj) 4 mg Q6H PRN IVP 09/03/17 01:15 09/10/17 21:42 (Tylenol) 650 mg Q6H PRN PO 09/03/17 01:15 (Roxicodone) 5 mg Q4H PRN PO 09/03/17 01:15 09/19/17 05:23 (Milk Of Magnesia Liq) 30 ml Q12H PRN PO 09/03/17 01:15 (Senokot) 17.2 mg Q12H PRN PO 09/03/17 01:15 (Norvasc) 5 mg DAILY PO 09/03/17 09:00 Future hold 09/03/17 08:30 (Lipitor) 40 mg HS PO 09/03/17 21:00 09/18/17 22:47 (Coreg) 25 mg BID PO 09/03/17 09:00 Future hold 09/18/17 22:48 (Lanoxin) 0.25 mg DAILY PO 09/03/17 09:00 09/18/17 08:21 (Lexapro) 10 mg DAILY PO 09/03/17 09:00 09/18/17 08:22 (Tapazole) 5 mg DAILY PO 09/09/17 09:00 09/18/17 08:22 (Mag-Ox) 400 mg DAILY@1100 PO 09/09/17 11:00 09/18/17 11:00 (Lactinex) 1 tab Q12HR PO 09/10/17 11:00 09/18/17 22:47 (Prinivil) 10 mg DAILY PO 09/11/17 09:00 Future Hold 09/13/17 09:29 (Creon 24-76-120) 2 cap TID PO 09/11/17 18:00 09/18/17 16:14 (Levemir Inj) 5 units DAILY SQ 09/13/17 09:00 09/18/17 08:23 (Apresoline) 10 mg Q6HR PRN PO 09/13/17 12:00 (Xifaxan) 550 mg BID PO 09/13/17 21:00 09/18/17 22:47 (Cardura) 1 mg DAILY PO 09/14/17 12:00 09/18/17 08:20 Sodium Chloride 1,000 ml @ 100 mls/hr Q10H IV 09/15/17 11:00 09/18/17 08:22 (Metamucil Fiber Sf Pkt) 1 pkt BID PO 09/17/17 21:00 09/17/17 20:43 (KCl) 40 meq DAILY PO 09/18/17 15:00 09/18/17 16:14 (Questran 4 Gm Pkt) 4 gm Q8HR PO 09/19/17 14:00 09/28/17 10:00 UNV A/P Assessment and Plan 67 years old male S. epidermidis bacteremia- repeat blood cultures. - so far no growth Rocephin 09/08 - finished management by ID specialist off antibiotics. Diarrhea-today had five small BMs. GI specialist following. continue Questran. but no more recommendations increased Questran to three times a day. Colonoscopy and C diff and repeat CT abdomen pelvis- negative lactinex bid GI following, on trial of creon, Xifaxan and cholestyramine. HIDA scan not able to get EF, as per General surgery no surgical procedure needed at this time. Follow as outpatient with GI specialist. TALON- Improving to Creatinine 1.43 okay to discharge from nephrology specialist standpoint. Macrocytic anemia S/P colonoscopy- internal hemorrhoids B12, folate level= normal PPI. no NSAIds S/P EGD- Esophagitis UTI- s/p received 3 days Bactrim - asymptomatic Suspecting BPH: doxazosin. Pt to f/u w urology as an outpatient Alcoholic hepatitis - Elevated LFTs: admits to alcohol abuse. ff LFT trend- down trend CT of abdomen - unremarkable Alcohol Abuse- no DTs. S/P Librium course, strongly recommended to stop drinking behavior. DM: Sliding scale w/ Accu-Cheks. trending down - per patient on Lantus and Humalog- liklely non compliant A1C 7.6 Dietitian consult. diabetes reinforcement/teaching patient complains of poor PO appetite- d/w him that due to alcoholism - poor PO on Levemer 5 units QAM . Adjusts slowly. will go home on home medicines. History of CAD/CMP- not in clinical failure- EF good on coreg/digoxin/Amlodipine/Lisinopril as OP on coreg 25 mg po bid continue on digoxin off Lisinopril at 10 mg due to worsening Cr - ff creatinine and K level Echo done with good EF 55% will not restart his Lasix of 40 mg from home- caution chronic hyperthyroidism Methimazole at 5 mg daily. (at home was on 10 mg ) TSH 6.4 Hypokalemia replaced Deconditioning- PT following and recommends home health DVT Prophylaxis: SCD/Jose Discharge Planning Discharge today and follow with GI specialist. Jc Yan MD September 19, 2017 08:24
--- NOTE | 2017-09-19 08:32 | HHI.NPPN ---
Subjective Renal Failure: Acute History of Present Illness This is a 67-year-old male with a past medical history of alcoholism, history of hypertension, diabetes mellitus, ischemic heart disease, was admitted because of generalized weakness and alcohol withdrawal.Nephrology was called to see the patient because of elevated BUN and creatinine. The patient has creatinine of 1.1 on admission, which decreased to 0.6-0.7 and then it started going up for the last 5 days gradually to 1.2-1.5 now. The patient denies any previous history of renal disease. He has some nausea and decreased appetite and has loose bowel motion. The patient was found to have blood culture positive of Staph epidermidis and he is currently getting ceftriaxone and he was on vancomycin, but it was stopped on 09/08/2017. At that time, his vancomycin trough level was 29. Patient has been following with the GI and he has elevated liver enzymes, mainly because of alcoholism and he had endoscopy which shows that he has gastritis and esophagitis. Additional Remarks Reports loose stools are improving. Denies any shortness of breath. (Hilda Grey) Review of Systems Respiratory Respiratory Remarks Denies any shortness of breath (Hilda Grey) Cardiovascular Cardiac Remarks Denies any chest pain (Hilda Grey) Gastrointestinal Gastrointestinal: Diarrhea (Hilda Grey) Objective Data Data Vital Signs Date Time Temp Pulse Resp B/P (MAP) Pulse Ox O2 Delivery O2 Flow Rate FiO2 09/19/17 00:00 98.0 78 18 108/65 (79) 95 09/18/17 21:00 Room Air 09/18/17 20:00 97.8 70 20 151/83 (105) 99 09/18/17 17:00 97.8 69 20 147/81 (103) 99 09/18/17 12:00 97.2 63 20 168/79 (108) 99 (Hilda Grey) -: 09/18/17 0750 09/18/17 0750 Imaging Last Impressions Abdomen Magnetic Resonance Angio 09/18/17 0000 Signed Impressions: Service Date/Time: Monday, September 18, 2017 10:14 - CONCLUSION: Normal examination. Sathya Rachel MD Hepatobiliary Scan Nuclear Medicine 09/16/17 0000 Signed Impressions: Service Date/Time: Saturday, September 16, 2017 11:45 - CONCLUSION: 1. No demonstrable clearance of activity from the gallbladder prior to and following administration of CCK (EF is therefore not calculable). Patient was asymptomatic during CCK demonstration. 2. No evidence for hepatocellular dysfunction or biliary ductal obstruction. Albaro Vaughan MD Abdomen Ultrasound 09/15/17 0000 Signed Impressions: Service Date/Time: Friday, September 15, 2017 08:24 - CONCLUSION: 1. No diffusely increased hepatic echogenicity without volume loss consistent with hepatic steatosis versus medical liver disease. 2. Small amount of gallbladder sludge with color wall thickening and questionable pericholecystic fluid. These findings are commonly seen in the setting of chronic liver disease but significantly reduce sonographic sensitivity for evaluation of acute cholecystitis. If there is significant clinical concern for acute cholecystitis , HIDA scan may be performed to evaluate for cystic duct patency. Albaro Vaughan MD Abdomen/Pelvis CT 09/11/17 0000 Signed Impressions: Service Date/Time: Monday, September 11, 2017 20:28 - CONCLUSION: No acute CT findings in the abdomen or pelvis. Interval development of tiny bilateral pleural effusions. Stable diffuse hepatic steatosis. Sathya Rachel MD Head CT 09/02/17 2233 Signed Impressions: Service Date/Time: Sunday, September 03, 2017 00:11 - CONCLUSION: No acute intracranial findings Sathya Rachel MD Chest X-Ray 09/02/173 Signed Impressions: Service Date/Time: Saturday, September 02, 2017 22:46 - CONCLUSION: No acute disease. Sathya Rachel MD (Hilda Grey) Physical Exam General Appearance: No Acute Distress, Comfortable (Hilda Grey) Throat Throat Exam: Oral Mucosa [place] & Moist (Hilda Grey) Pulmonary Resp Exam: Breath Sounds Equal, No Distress (Hilda Grey) Cardiology CV Exam: Normal Sinus Rhythm (Hilda Grey) Gastrointestinal/Abdomen GI Exam: Soft, Non-Tender, Bowel Sounds Present GI Remarks large (Hilda Grey) Genitourinary Exam: Flank Non-Tender (Hilda Grey) Integumentary Skin Exam: Clear, Warm, Dry (Hilda Grey) Extremeties Extremities Exam: Trace Edema (Hilda Grey) Neurologic Neuro Exam: Alert, Awake, Oriented (Hilda Grey) Psychiatric Psych Exam: Appropriate Responses (Hilda Grey) Assessment/Plan Discussed Condition With: Patient Assessment Summary: TALON/Acute Renal Failure Problem List: (1) Acute kidney injury ICD Codes: N17.9 - Acute kidney failure, unspecified Plan: Acute kidney injury the patient has creatinine of 1.1 on admission, which decreased to 0.6-0.7 and then it started going up for the last 5 days gradually to 1.2-1.5 now. Differential diagnosis will be ATN, either from the infection or the possibility of vancomycin related toxicity. The patient has been nonoliguric. CT of abdomen with kidney with normal in size and shape. There is no mass, stone, or hydronephrosis. Proteinuria noted FeNa at 5.1% suggestive of ATN Plan Creatinine stable at 1.36 from 143 Non oliguric Continue to hold Lisinopril Avoid nephrotoxins Fluids encouraged Will follow urinary output and BMP. Stable for d/c from renal standpoint, renal function stable. (2) Elevated LFTs ICD Codes: R79.89 - Other specified abnormal findings of blood chemistry Plan: GI consulted and managing (3) DM (diabetes mellitus) ICD Codes: E11.9 - Type 2 diabetes mellitus without complications Plan: Maintain blood sugars between 140 mg/dl to 180 mg/dl (4) Hypertension ICD Codes: I10 - Essential (primary) hypertension Plan: continue medication well controlled (Hilda Grey) Problem List: (1) Acute kidney injury ICD Codes: N17.9 - Acute kidney failure, unspecified Plan: Acute kidney injury the patient has creatinine of 1.1 on admission, which decreased to 0.6-0.7 and then it started going up for the last 5 days gradually to 1.2-1.5 now. Differential diagnosis will be ATN, either from the infection or the possibility of vancomycin related toxicity. The patient has been nonoliguric. CT of abdomen with kidney with normal in size and shape. There is no mass, stone, or hydronephrosis. Proteinuria noted FeNa at 5.1% suggestive of ATN Plan Creatinine stable at 1.36 from 143 Non oliguric Continue to hold Lisinopril Avoid nephrotoxins Fluids encouraged Will follow urinary output and BMP. Stable for d/c from renal standpoint, renal function stable. Patient seen and examined, agree with above. For discharge, to follow with PCP. (2) Elevated LFTs ICD Codes: R79.89 - Other specified abnormal findings of blood chemistry Plan: GI consulted and managing (3) DM (diabetes mellitus) ICD Codes: E11.9 - Type 2 diabetes mellitus without complications Plan: Maintain blood sugars between 140 mg/dl to 180 mg/dl (4) Hypertension ICD Codes: I10 - Essential (primary) hypertension Plan: continue medication well controlled (Luis Obando MD) Hilda Grey September 19, 2017 08:32 Luis Obando MD September 20, 2017 23:56
--- NOTE | 2017-09-19 08:36 | HHI.FF ---
Face to Face Verification Diagnosis: (1) Alcohol withdrawal (2) DM (diabetes mellitus) (3) Elevated LFTs (4) Hypertension (5) Acute kidney injury Physical Therapy Order: Evaluate and Treat, Improve ambulation, Strength and gait training Home Health Nursing Order: Medical education Signs/symptoms of disease process Medication education-adverse effect Nursing assessment with vital signs I have seen patient Ivan Mays on 09/19/17. My clinical findings support the need for the requested home health care services because: Ltd mobility - disease progression I certify that my clinical findings support that this patient is homebound because: Unsafe to leave home unassisted Jc Yan MD September 19, 2017 08:36
[2017-09-19] MEDS: PSYLLIUM HUSK SF 3.4 GM in 5.8 GM PKT PO SCH (09:00)
[2017-09-19] MEDS: LIPASE/PROTEASE/AMYLASE (24,000/76,000/120,000) CAP PO SCH ×3 (09:00→17:39)
[2017-09-19] MEDS: ESCITALOPRAM OXALATE 10 MG TAB PO SCH (09:26)
[2017-09-19] MEDS: CARVEDILOL 12.5 MG TAB PO SCH (09:26)
[2017-09-19] MEDS: METHIMAZOLE 5 MG TAB PO SCH (09:26)
[2017-09-19] MEDS: LACTOBACILLUS ACIDOPHILUS TAB PO SCH (09:26)
[2017-09-19] MEDS: DIGOXIN 0.25 MG TAB PO SCH (09:26)
[2017-09-19] MEDS: RIFAXIMIN 550 MG TAB PO SCH (09:26)
[2017-09-19] MEDS: DOXAZOSIN MESYLATE 1 MG TAB PO SCH (09:26)
[2017-09-19] MEDS: POTASSIUM CHLORIDE 20 MEQ CONTROLLED RELEASE TAB PO SCH (09:26)
[2017-09-19] MEDS: SODIUM CHLORIDE 0.9% FLUSH 10 ML FLUSH IV FLUSH SCH (09:27)
[2017-09-19] MEDS: amLODIPine BESYLATE 5 MG TAB PO SCH (09:32)
[2017-09-19] MEDS: INSULIN DETEMIR 100 UNITS/ML VIAL SQ SCH (09:33)
--- NOTE | 2017-09-19 09:46 | HHI.PR ---
cc: Dc Way MD Subjective Subjective Notes Resting in bed Concerned about what medications he will continue at home that he was on before Objective Vitals/I&O Vital Signs Date Time Temp Pulse Resp B/P (MAP) Pulse Ox O2 Delivery O2 Flow Rate FiO2 09/19/17 08:00 97.5 68 19 167/88 (114) 98 09/18/17 21:00 Room Air Labs Laboratory Tests Test 09/19/17 09:24 Date/Time Source Procedure Growth Status 09/04/17 11:53 Blood Peripheral Aerobic Blood Culture - Final NO GROWTH IN 5 DAYS Complete 09/04/17 11:53 Blood Peripheral Anaerobic Blood Culture - Final NO GROWTH IN 5 DAYS Complete Cardiovascular: Regular Lungs: Clear Abdomen: Other (generalized abdominal pain ) Extremities: No edema A/P Assessment and Plan 67 year old male with bacteremia; abnormal gallbladder on imaging -Low suspicion of gallbladder issues -Continue to treat for bacteremia -Diet as tolerated -OOB and mobilize -Continue non operative treatment Attending Statement patient seen at bedside mild diffuse pain does not appear to be specific to gallbladder etiology likely due to liver disfunction or etoh non operative mgnt Attestation The exam, history, and the medical decision-making described in the above note were completed with the assistance of the mid-level provider. I reviewed and agree with the findings presented. I attest that I had a [id number] encounter with the patient on the same day, and personally performed and documented my assessment and findings in the medical record. Adele HooperP/Pattern Checker LITO September 19, 2017 09:[address] MD September 22, 2017 22:50
[2017-09-19 09:56] LABS: MAGNESIUM 1.8 MG/DL (1.5-2.5); PHOSPHORUS 2.1 MG/DL (2.5-4.9)
[2017-09-19 12:00] VITALS: BP 186/88; PULSE 77; RESP 20; TEMP 97.9; O2SAT 98
[2017-09-19] MEDS: MAGNESIUM OXIDE 400 MG TAB PO SCH (12:29)
[2017-09-19] MEDS ORDERED: CHOLESTYRAMINE 4 GM PACKET PO SCH (14:00)
[2017-09-19] MEDS ORDERED: OXYC-392 PO (15:12)
[2017-09-19] MEDS ORDERED: CHOL4POW4 PO (15:12)
[2017-09-19] MEDS ORDERED: CARD1TAB PO (15:12)
[2017-09-19] MEDS ORDERED: XIFA550T4 PO (15:12)
[2017-09-19] MEDS ORDERED: MAGN400T2 PO (15:12)
--- NOTE | 2017-09-19 15:52 | HHI.GIFU ---
Subjective Remarks Pt continues to complain about frequent loose BM. When asked how many today so far he says "oh, 3...4....6..." Per RN he had 1 today and it was flushed by housekeeping. (Elba Georges) Objective Vitals I&O Vital Signs Date Time Temp Pulse Resp B/P (MAP) Pulse Ox O2 Delivery O2 Flow Rate FiO2 09/19/17 12:00 97.9 77 20 186/88 (120) 98 09/19/17 08:00 97.5 68 19 167/88 (114) 98 09/19/17 00:00 98.0 78 18 108/65 (79) 95 09/18/17 21:00 Room Air 09/18/17 20:00 97.8 70 20 151/83 (105) 99 09/18/17 17:00 97.8 69 20 147/81 (103) 99 I/O 09/18/17 09/18/17 09/18/17 09/19/17 09/19/17 09/19/17 07:00 15:00 23:00 07:00 15:00 23:00 Intake Total 900 ml 480 ml Output Total 400 ml 400 ml Balance 900 ml 80 ml -400 ml Intake Oral 480 ml IV Total 900 ml Output Urine Total 400 ml 400 ml # Bowel Movements 2 3 Laboratory Laboratory Tests Test 09/19/17 09:24 Potassium Level 3.8 Phosphorus Level 2.1 Magnesium Level 1.8 Date/Time Source Procedure Growth Status 09/04/17 11:53 Blood Peripheral Aerobic Blood Culture - Final NO GROWTH IN 5 DAYS Complete 09/04/17 11:53 Blood Peripheral Anaerobic Blood Culture - Final NO GROWTH IN 5 DAYS Complete Imaging Last Impressions Abdomen Magnetic Resonance Angio 09/18/17 0000 Signed Impressions: Service Date/Time: Monday, September 18, 2017 10:14 - CONCLUSION: Normal examination. Sathya Rachel MD Hepatobiliary Scan Nuclear Medicine 09/16/17 0000 Signed Impressions: Service Date/Time: Saturday, September 16, 2017 11:45 - CONCLUSION: 1. No demonstrable clearance of activity from the gallbladder prior to and following administration of CCK (EF is therefore not calculable). Patient was asymptomatic during CCK demonstration. 2. No evidence for hepatocellular dysfunction or biliary ductal obstruction. Albaro Vaughan MD Abdomen Ultrasound 09/15/17 0000 Signed Impressions: Service Date/Time: Friday, September 15, 2017 08:24 - CONCLUSION: 1. No diffusely increased hepatic echogenicity without volume loss consistent with hepatic steatosis versus medical liver disease. 2. Small amount of gallbladder sludge with color wall thickening and questionable pericholecystic fluid. These findings are commonly seen in the setting of chronic liver disease but significantly reduce sonographic sensitivity for evaluation of acute cholecystitis. If there is significant clinical concern for acute cholecystitis , HIDA scan may be performed to evaluate for cystic duct patency. Albaro Vauhgan MD Abdomen/Pelvis CT 09/11/17 0000 Signed Impressions: Service Date/Time: Monday, September 11, 2017 20:28 - CONCLUSION: No acute CT findings in the abdomen or pelvis. Interval development of tiny bilateral pleural effusions. Stable diffuse hepatic steatosis. Sathya Rachel MD Head CT 09/02/172232 Signed Impressions: Service Date/Time: Sunday, September 03, 2017 00:11 - CONCLUSION: No acute intracranial findings Sathya Rachel MD Chest X-Ray 09/02/172232 Signed Impressions: Service Date/Time: Saturday, September 02, 2017 22:46 - CONCLUSION: No acute disease. Sathya Rachel MD Physical Exam HEENT: Normocephalic; atraumatic CHEST: CTA CARDIAC: RRR ABDOMEN: Soft, nondistended, nontender; bowel sounds active EXTREMITIES: No clubbing, cyanosis, or edema. SKIN: Normal; no rash; no jaundice. HORSE SHOW JUDGE: alert (Elba Georges MANAGER CLIENT) Assessment and Plan Plan Assessment: - Projectile vomiting- reports of nausea and vomiting for the past 3-4 weeks with some episodes of hematemesis preceded by extreme retching. Associated epigastric pain, acid reflux, and heartburn. CT abdomen and pelvis W IV contrast (09/03) --> No acute findings. Liver: Severely diminished hepatic attenuation likely reflecting steatosis. No focal mass. No biliary ductal dilatation. - ETOH abuse- reports drinking 1 gallon of vodka a week for multiple years- denies previous diagnosis of liver issues. - Transaminitis likely secondary to ETOH DF- 4 no indication for steroids LFTs currently: AST-307 ALT-112 T bili-3.9 Alk phos-285 No thrombocytopenia, coagulopathy. Mild hypoalbuminemia - Diarrhea- reports of diarrhea for the past 3-4 weeks with some episodes of hematochezia. Associated fecal urgency and incontinence. Family history of colon cancer. Has never had EGD or colonoscopy. - Weight loss- unsure of how much over what period of time. Family history significant for colon cancer, father. (09/05) EGD --> Class A esophagitis, erythematous gastritis, duodenal inflammation in the bulb and second portion of the duodenum. Pathology (duodenal bulb) without significant histologic abnormality (stomach, antrum) minimally active chronic gastritis with intestinal metaplasia, no H. Pylori (esophagus, distal) without significant histopathologic abnormality. Pt reports some nausea today, no emesis. Initially colonoscopy was held and only EGD was done because pt would not have tolerated the prep and was unable to get to the bathroom (syncopal episode on the toilet day of initial consult) Now pt seems able to tolerate Mag Citrate prep and he is agreeable to colonoscopy. LFTs trending down, hepatitis panel negative. (09/07) Pt reports diarrhea seems to be improving. Denies any continued nausea or vomiting. Colonoscopy --> Moderate diverticulosis in the sigmoid colon. Internal and external hemorrhoids. LFTs trending down. Reconsult for Diarrhea on 09/11 C. diff negative, stool culture was never sent, ordered during initial consult Of note, pt on Magnesium Oxide. (09/13) Pt complaining of continued diarrhea, states with some episodes of incontinence. Has been on Creon for two days. Also has poor appetite, states has been trying to take the Glucerna shakes but does not like the taste of them when they are warm (09/14) Pt reports some improvement of diarrhea but continues to have multiple BMs. Also complaining of abdominal pain. Increase in LFTs noted today, they had been trending down since admission. ? secondary to medication. US abdomen ordered. (09/15) Pt reports some continued improvement in diarrhea, last BM at 4 AM. No repeat LFTs today. Abdominal US done, report pending. (09/17)Pt with persistent diarrhea- Unclear etiology- According to nurse, pt only had one bm today and more on the soft side, no frequent loose stools noted by nurse. Pt states having some vomiting but his main concern is the diarrhea, states he is having a loose BM approx. every 45 mint. not able to get any rest, however, when re- questioned he admits to going once today, he just feels the urge to go. Today he started having some mid abd aches, no hematochezia or melena US 09/15 showed fatty liver, small amount of gall bladder sludge with color wall thickening and questionable pericholecystic fluid HIDA 09/16 No evidence for hepatocellular dysfunction or biliary ductal obstructions, EF no calculated, no clearance of activity from the gall bladder prior to and following administration of CCK Pt has been on Creon and cholestyramine and Xifaxan 09/18/17 pt c/o diarrhea, 4 BM documentd. unclear etiology. MRA normal. GS consult pending after abnormal HIDA 09/19/17 C/O frequent diarrhea but per pts nurse he has had ONE BM today and asked her to delay his questran. GS - low suspicious gallbladder problem. d/w RN in detail Plan: consider trial lomotil GERALD Continue Creon Cholestyramine Xifaxan LFTs F/u with GI in 2 weeks not much more to add Pt seen by myself and Dr. Hart and this note is on his behalf (Elba Georges) Physician Comments Patient seen and examined Agree with above Continue with current supportive care Monitor labs Follow-up with GI post discharge (Layton Hart MD) Elba Georges September 19, 2017 15:52 Layton Hart MD September 19, 2017 22:39
--- NOTE | 2017-09-19 15:52 | HHI.DS ---
Discharge Summary Admission Date September 03, 2017 at 01:05 Discharge Date: September 19, 2017 Admitting Diagnosis generalized weakness; alcohol withdrawal; DM (1) Alcohol withdrawal ICD Code: F10.239 - Alcohol dependence with withdrawal, unspecified Diagnosis: Principal (2) Elevated LFTs ICD Code: R79.89 - Other specified abnormal findings of blood chemistry Diagnosis: Principal (3) DM (diabetes mellitus) ICD Code: E11.9 - Type 2 diabetes mellitus without complications Diagnosis: Principal Procedures 09/04 EGD w/ biopsy 09/06 colonoscopy 1. Moderate diverticulosis was noted in the sigmoid colon 2. Retroflexed views revealed internal hemorrhoids 3. Retroflexed views revealed medium internal hemorrhoids 4. Revealed external hemorrhoids Brief History - From Admission This is a 67-year-old male with a PMH of HTN, CAD, DM and Alcohol Abuse who was brought to the ER by EMS secondary to complaints of generalized weakness and palpitations. Patient reports he's had weakness and decreased PO intake for several months, however now worse over the last 1-2 days. +alcohol, drinks approx 1gallon of Vodka every few days, last drink yesterday. Denies chest pain , SOB, fever or chills. While in ER, pt noted to have significant tremor, + alcohol withdrawal. BP 139/92, HR 124, O2 sat 97% on RA, Temp 99.0. CBC unremarkable except for hemoglobin 11.7, MCV 104.1. GFR 75, BS 283. Lactic Acid 3.8. LFTs elevated, no previous labs for comparison. Troponin negative. INR 1.2. UA negative for UTI. Urine Drug Screen negative. Alcohol negative. CT Abdomen/Pelvis with no acute findings. CT Head negative. CXR with no acute findings. CBC/BMP: 09/18/17 0750 09/19/17 0924 Significant Findings Laboratory Tests Test 09/17/17 06:24 09/18/17 07:50 09/19/17 09:24 Red Blood Count 2.85 MIL/MM3 (4.50-5.90) 3.33 MIL/MM3 (4.50-5.90) Hemoglobin 9.7 GM/DL (13.0-17.0) 11.2 GM/DL (13.0-17.0) Hematocrit 28.8 % (39.0-51.0) 34.0 % (39.0-51.0) Mean Corpuscular Volume 101.1 FL (80.0-100.0) 101.9 FL (80.0-100.0) Mean Corpuscular Hemoglobin 34.2 PG (27.0-34.0) Monocytes (%) (Auto) 13.4 % (0.0-8.0) 11.7 % (0.0-8.0) Monocytes # (Auto) 1.2 TH/MM3 (0-0.9) 1.0 TH/MM3 (0-0.9) Blood Urea Nitrogen 4 MG/DL (7-18) 4 MG/DL (7-18) Creatinine 1.37 MG/DL (0.60-1.30) 1.43 MG/DL (0.60-1.30) Calcium Level 8.0 MG/DL (8.5-10.1) 8.2 MG/DL (8.5-10.1) Sodium Level 146 MEQ/L (136-145) Potassium Level 3.1 MEQ/L (3.5-5.1) 3.1 MEQ/L (3.5-5.1) Chloride Level 114 MEQ/L (98-107) 114 MEQ/L (98-107) Estimat Glomerular Filtration Rate 63 ML/MIN (>89) 60 ML/MIN (>89) Total Bilirubin 1.4 MG/DL (0.2-1.0) Direct Bilirubin 0.9 MG/DL (0.0-0.2) Aspartate Amino Transf (AST/SGOT) 184 U/L (15-37) Alanine Aminotransferase (ALT/SGPT) 96 U/L (12-78) Alkaline Phosphatase 266 U/L (45-117) Total Protein 6.0 GM/DL (6.4-8.2) Albumin 2.0 GM/DL (3.4-5.0) Random Glucose 117 MG/DL (74-106) Phosphorus Level 2.1 MG/DL (2.5-4.9) Imaging Last Impressions Abdomen Magnetic Resonance Angio 09/18/17 0000 Signed Impressions: Service Date/Time: Monday, September 18, 2017 10:14 - CONCLUSION: Normal examination. Sathya Rachel MD Hepatobiliary Scan Nuclear Medicine 09/16/17 0000 Signed Impressions: Service Date/Time: Saturday, September 16, 2017 11:45 - CONCLUSION: 1. No demonstrable clearance of activity from the gallbladder prior to and following administration of CCK (EF is therefore not calculable). Patient was asymptomatic during CCK demonstration. 2. No evidence for hepatocellular dysfunction or biliary ductal obstruction. Albaro Vaughan MD Abdomen Ultrasound 09/15/17 0000 Signed Impressions: Service Date/Time: Friday, September 15, 2017 08:24 - CONCLUSION: 1. No diffusely increased hepatic echogenicity without volume loss consistent with hepatic steatosis versus medical liver disease. 2. Small amount of gallbladder sludge with color wall thickening and questionable pericholecystic fluid. These findings are commonly seen in the setting of chronic liver disease but significantly reduce sonographic sensitivity for evaluation of acute cholecystitis. If there is significant clinical concern for acute cholecystitis , HIDA scan may be performed to evaluate for cystic duct patency. Albaro Vaughan MD Abdomen/Pelvis CT 09/11/17 Signed Impressions: Service Date/Time: Monday, September 11, 2017 20:28 - CONCLUSION: No acute CT findings in the abdomen or pelvis. Interval development of tiny bilateral pleural effusions. Stable diffuse hepatic steatosis. Sathya Rachel MD Head CT 09/02/172232 Signed Impressions: Service Date/Time: Sunday, September 03, 2017 00:11 - CONCLUSION: No acute intracranial findings Sathya Rachel MD Chest X-Ray 09/02/172232 Signed Impressions: Service Date/Time: Saturday, September 02, 2017 22:46 - CONCLUSION: No acute disease. Sathya Rachel MD PE at Discharge GENERAL: No acute distress. SKIN: Warm and dry. HEAD: Atraumatic. Normocephalic. EYES: Pupils equal and round. No scleral icterus. No injection or drainage. ENT: No nasal bleeding or discharge. Mucous membranes pink and moist. NECK: Trachea midline. No JVD. CARDIOVASCULAR: Regular rate and rhythm. RESPIRATORY: No accessory muscle use. Clear to auscultation. Breath sounds equal bilaterally. GASTROINTESTINAL: Abdomen soft, non-tender, nondistended. Hepatic and splenic margins not palpable. MUSCULOSKELETAL: Extremities without clubbing, cyanosis, or edema. NEUROLOGICAL: Awake and alert. No obvious cranial nerve deficits. PSYCHIATRIC: Appropriate mood and affect; insight and judgment normal. Hospital Course This is a pleasant 67 y/o male who was admitted on 09/03/17 with Alcohol withdrawal, Nephrology and GI specialist following, alcoholic, HTN, DM II, CAD, Kidney disease, was on Vancomycin due to Staph epidermidis positive, developed acute kidney Injury, has Gastritis and Esophagitis. 09/16: Denies any nausea or vomit. improving Bowel movements for today had One. discussed with nurse Miss Gonsalez he will go for HIDA scan today. okay to discharge from Nephrology specialist standpoint. 09/17: Stable in his bedroom, as per PT will go home on [facility], as per Nephrology specialist okay to discharge home, improving condition, had one BM this 24 hours, he wants to go home, discussed with nurse Miss Gonsalez, no nausea, vomit or diarrhea will discuss with GI for clearance for discharge. 09/18: Seen in his bedroom, has Diarrhea four BMs today, asked by GI specialist for General surgery, but no recommendation for surgery, 09/19: patient stable improving BMs will need to continue management for diarrhea with Questran and also Rifaximin, at this time stable will go home with [facility] Assessment and Plan 67 years old male S. epidermidis bacteremia- repeat blood cultures. - so far no growth Rocephin 09/08 - finished management by ID specialist off antibiotics. Diarrhea-today had five small BMs. GI specialist following. continue Questran. but no more recommendations increased Questran to three times a day. Colonoscopy and C diff and repeat CT abdomen pelvis- negative lactinex bid GI following, on trial of creon, Xifaxan and cholestyramine. HIDA scan not able to get EF, as per General surgery no surgical procedure needed at this time. Follow as outpatient with GI specialist. TALON- Improving to Creatinine 1.43 okay to discharge from nephrology specialist standpoint. Macrocytic anemia S/P colonoscopy- internal hemorrhoids B12, folate level= normal PPI. no NSAIds S/P EGD- Esophagitis UTI- s/p received 3 days Bactrim - asymptomatic Suspecting BPH: doxazosin. Pt to f/u w urology as an outpatient Alcoholic hepatitis - Elevated LFTs: admits to alcohol abuse. ff LFT trend- down trend CT of abdomen - unremarkable Alcohol Abuse- no DTs. S/P Librium course, strongly recommended to stop drinking behavior. DM: Sliding scale w/ Accu-Cheks. trending down - per patient on Lantus and Humalog- liklely non compliant A1C 7.6 Dietitian consult. diabetes reinforcement/teaching patient complains of poor PO appetite- d/w him that due to alcoholism - poor PO on Levemer 5 units QAM . Adjusts slowly. will go home on home medicines. History of CAD/CMP- not in clinical failure- EF good on coreg/digoxin/Amlodipine/Lisinopril as OP on coreg 25 mg po bid continue on digoxin off Lisinopril at 10 mg due to worsening Cr - ff creatinine and K level Echo done with good EF 55% will not restart his Lasix of 40 mg from home- caution chronic hyperthyroidism Methimazole at 5 mg daily. (at home was on 10 mg ) TSH 6.4 Hypokalemia replaced Deconditioning- PT following and recommends home health DVT Prophylaxis: SCD/Jose Discharge Planning Discharge today and follow with GI specialist. Pt Condition on Discharge: Stable Discharge Disposition: Disch w/ Home Health Serv Discharge Time: > 30 minutes Discharge Instructions DIET: Follow Instructions for: Heart Healthy Diet Activities you can perform: Regular-No Restrictions Jc Yan MD September 19, 2017 15:52
[2017-09-19 16:00] VITALS: BP 154/84; PULSE 72; RESP 17; TEMP 97.6; O2SAT 98
== END 2017-09-19 18:06 | disposition home health service (06) | DRG 896 ==
LOC: NEPC 22:14 → NEDA 09-03 01:05 → N07A 09-03 02:31
PROVIDERS: ADMIT Internal Medicine; ATTEND Internal Medicine
PROC: 0DB68ZX Excision of Stomach, Via Natural or Artificial Opening Endoscopic, Diagnostic (ICD-10-PCS; 2017-09-04)
PROC: 0DB58ZX Excision of Esophagus, Via Natural or Artificial Opening Endoscopic, Diagnostic (ICD-10-PCS; 2017-09-04)
PROC: 0DB98ZX Excision of Duodenum, Via Natural or Artificial Opening Endoscopic, Diagnostic (ICD-10-PCS; principal; 2017-09-04 10:38)
PROC: 0DJD8ZZ Inspection of Lower Intestinal Tract, Via Natural or Artificial Opening Endoscopic (ICD-10-PCS; 2017-09-06)
DX: F10.239 Alcohol dependence with withdrawal, unspecified (principal); N17.0 Acute kidney failure with tubular necrosis; I11.0 Hypertensive heart disease with heart failure; I50.9 Heart failure, unspecified; R78.81 Bacteremia; N39.0 Urinary tract infection, site not specified; K70.10 Alcoholic hepatitis without ascites; E11.649 Type 2 diabetes mellitus with hypoglycemia without coma; E78.5 Hyperlipidemia, unspecified; I25.10 Atherosclerotic heart disease of native coronary artery without angina pectoris; M19.90 Unspecified osteoarthritis, unspecified site; Z91.14 Patient's other noncompliance with medication regimen; I25.2 Old myocardial infarction; R25.1 Tremor, unspecified; R32 Unspecified urinary incontinence; R15.2 Fecal urgency; R55 Syncope and collapse; Z80.0 Family history of malignant neoplasm of digestive organs; K21.0 Gastro-esophageal reflux disease with esophagitis; E88.09 Other disorders of plasma-protein metabolism, not elsewhere classified; K76.0 Fatty (change of) liver, not elsewhere classified; K57.30 Diverticulosis of large intestine without perforation or abscess without bleeding; T36.8X5A Adverse effect of other systemic antibiotics, initial encounter; Y92.239 Unspecified place in hospital as the place of occurrence of the external cause; K64.8 Other hemorrhoids; K64.4 Residual hemorrhoidal skin tags; K52.9 Noninfective gastroenteritis and colitis, unspecified; E05.90 Thyrotoxicosis, unspecified without thyrotoxic crisis or storm; E87.6 Hypokalemia; D53.9 Nutritional anemia, unspecified; K29.50 Unspecified chronic gastritis without bleeding; B95.7 Other staphylococcus as the cause of diseases classified elsewhere
CPT/HCPCS: 70450; 71045; 74176; 74177; 76700; 78227; 80048; 80053; 80074; 80076; 80202; 80307; 81001; 82550; 82570; 82607; 82746; 82948; 83036; 83605; 83690; 83735; 83935; 84100; 84132; 84300; 84439; 84443; 84481; 84484; 85025; 85027; 85610; 85652; 85730; 86430; 87040; 87186; 87205; 87493; 88305; 88312; 93005; 93308; 96360; A9537; A9579; C8900; J0696; J1815; J2060; J2405; J3370; J3411; J3475; J3480; J7030; J7040; J7050; Q9963; Q9967